=== PATIENT | female | born 1960 | race Caucasian/White ===

== ENCOUNTER → 2020-12-02 14:56 | Outpatient (BNVA) | payer BC, SELFPAY | PROVIDERS: PCP Internal Medicine; Visit Provider Advanced Practice Midwife ==

== ENCOUNTER → 2020-12-23 07:12 | Outpatient (REF) | payer BC, SELFPAY ==
--- NOTE | 2020-12-23 07:30 | CA_ITS ---
Transthoracic Echocardiogram Patient (Last, First, Middle): Alisia Winston, Gender: Female Date of : 1960 Age: 60 Procedure Date: 12/23/2020 Procedure Type: Transthoracic Echocardiogram Location: OP Height: 160.02 cm Weight: 68.95 kg BSA: 1.72 m2 Heart Rate: bpm BP: 98 / 68 mmHg Jewel Hole Finish Opener: JOVITA Referring MD: Arnol Real MD Symptoms: PERSONAL HX. OF SUDDEN CARDIAC ARREST,CARDIOMYOPATHIES Conclusions: - Normal left ventricular size, thickness, and systolic function. - Moderately increased right ventricular cavity size. There is normal right ventricular systolic function. Findings Left Ventricle Normal left ventricular size, thickness, and systolic function. The visually estimated ejection fraction is between 55-60%. There is no evidence of regional wall motion abnormalities. Diastolic function is normal for age. Right Ventricle Moderately increased right ventricular cavity size. There is normal right ventricular systolic function. There is a pacemaker wire seen in the right ventricle. Atria The left atrium is mildly dilated. The right atrium is normal in size. Aortic Valve Normal aortic valve structure and function. There is no aortic valve stenosis. There is no aortic valve regurgitation. Mitral Valve Normal mitral valve structure and function. There is trace mitral valve regurgitation. There is no mitral valve stenosis. Pulmonic Valve Normal pulmonic valve structure and function. Tricuspid Valve Normal tricuspid valve structure and function. There is mild tricuspid valve regurgitation. Normal right atrial pressure. There is no evidence of pulmonary hypertension. Great Vessels All visible segments of the aorta are normal in size. The visualized portions of the pulmonary artery and branches are normal. Venous The inferior vena cava is normal in size and collapses less than 50% with inspiration. Pericardium/Pleural There is no evidence of pericardial effusion. Prior Study Comparison No significant change compared to prior study dated: 11/09/2019. Measurements 2D Linear Measurements RVIDd: 3.36 RVIDd Index: 1.95 IVSd: 0.83 0.6-0.9/0.6-1.0 cm LVIDd: 5.52 3.9-5.3/4.2-5.9 cm LVIDd Index: 3.21 2.4-3.2/2.2-3.1 cm/m2 LVIDs: 4.18 2.0-3.6 cm LVPWd: 0.82 0.7-1.1 cm Ao Root: 3.00 2.1-3.5 cm LA Diam: 4.30 2.7-3.8/3.0-4.0 cm LAIDs Index: 2.50 1.5-2.3 cm/m2 LV Mass: 209.38 67-162/88-224 g LV Mass Index: 121.74 43-95/49-115 g/m2 LVOT Diam: 2.00 3.0+(-)1.3 cm 2D Systolic Function EF 4C: 60.40 >55% EF 2C: 64.00 >55% EF BiP: 62.50 >55% Mitral Valve MV Pk E: 0.55 MV PK A: 0.57 MV Decel Time: 280.00 E/A: 1.00 E'Lateral: 8.81 E'Medial: 6.31 E/E' Med: 8.80 E/E' Lat: 6.30 Aortic Valve AoV Pk Jalen: 0.96 AoV Mn Jalen: 0.75 AoV VTI: 0.22 AoV Pk Grad: 4.00 Aov Mn Grad: 2.00 SASCHA Cont.VTI: 3.22 LVOT LVOT Pk Jalen: 0.99 LVOT Mn Jalen: 0.71 LVOT VTI: 0.23 LVOT Pk Grad: 4.00 LVOT Mn Grad: 2.00 LVOT Diam: 2.00 LVOT Area: 3.14 Diastolic Function MV Pk E: 0.55 MV Pk A: 0.57 E/A: 1.00 E'Medial: 6.31 E/E' Med: 8.80 E' Laterial: 8.81 E/E' Lat: 6.30 Tricuspid Valve TR Pk Jalen: 2.15 TR Pk Grad: 18.00 RA Press: 3.00 RVSP: 21.00 Great Vessels Aorta Ao Root-2D: 3.00 2.0-3.7 cm Ao Asc: 3.10 2.1-3.4 cm Ao Arch: 2.90 Updated in Other Vendor System with Status of Final Baljit Vanessa MD electronically signed on 12/24/2020 10:37:46 PM with status of Final
== END ==
LOC: HO.CARD 07:12
PROVIDERS: Visit Provider Internal Medicine Cardiovascular Disease
DX: I42.8 Other cardiomyopathies (principal); Z86.74 Personal history of sudden cardiac arrest
CPT/HCPCS: 93306

== ENCOUNTER 2020-12-23 07:33 | Outpatient (REF) | payer BC, SELFPAY ==
--- NOTE | ~2020-12-23 | MM_ITS ---
EXAMINATION: MM SCREENING DIGITAL BREAST TOMOSYNTHESIS, BILATERAL CLINICAL INFORMATION: Screening. Asymptomatic. The lifetime risk of breast cancer based on the Tyrer-Cuzick Model is 5.1%. COMPARISON: Mammography: September 21, 2019 and studies dating back to December 21, 2010 TECHNIQUE: Digital breast tomosynthesis is performed in both the craniocaudal and mediolateral oblique views along with computer-aided detection (CAD). Synthesized 2D images are generated from the tomosynthesis. FINDINGS: The breasts are heterogeneously dense, which may obscure small masses (ACR BI-RADS breast composition Category c). There are no significant masses, abnormal calcifications, or other abnormalities. MM/MM tomosynthesis screening BI IMPRESSION: There are no significant changes from prior study. ASSESSMENT: BI-RADS 1: Negative RECOMMENDATION: Routine annual mammography screening. This patient's information was entered into a reminder system with a target due date for their next mammogram.
== END 2020-12-23 07:34 | disposition home or self-care (01) ==
LOC: HO.MAMMO 07:33
PROVIDERS: PCP Internal Medicine; Visit Provider Internal Medicine
DX: Z12.31 Encounter for screening mammogram for malignant neoplasm of breast (principal)
CPT/HCPCS: 77063; 77067

== ENCOUNTER 2021-06-12 10:15 | Outpatient (REF) | payer BC, SELFPAY ==
[2021-06-12 10:18] LABS: MANUAL DIFF FLAG NO
[2021-06-12 10:53] LABS: Basophils Absolute Auto 0.1 X10*3/uL (0.0-0.2); Basophils Percent Auto 1.2 % (0-2); Eosinophils Absolute Auto 0.3 X10*3/uL (0.0-0.4); Eosinophils Percent Auto 3.9 % (0-4); Hematocrit 43.6 % (37.0-47.0); Hemoglobin 14.2 g/dl (12.0-16.0); Imm Gran Abs Auto 0.02 X10*3/uL (0.00-0.03); Imm Gran Pct Auto 0.3 % (0.0-0.4); Lymphocytes Absolute Auto 2.3 X10*3/uL (1.2-4.9); Lymphocytes Percent Auto 32.3 % (20-40); Mean Corpuscular HGB Conc 32.6 g/dl (31.0-35.0); Mean Corpuscular Hemoglobin 30.4 pg (27.0-33.0); Mean Corpuscular Volume 93.4 fL (80.0-98.0); Mean Platelet Volume 10.2 fL (9.4-12.3); Monocytes Absolute Auto 0.9 X10*3/uL (0.1-1.2); Neutrophils Absolute Auto 3.6 x10*3/uL (2.0-8.3); Neutrophils Percent Auto 49.3 % (45-73); Platelet Count 294 X10*3/uL (160-400); Red Blood Count 4.67 X10*6/uL (4.20-5.50); Red Cell Distribution Width 12.3 % (11.0-16.0); White Blood Count 7.3 X10*3/uL (4.8-10.8)
[2021-06-12 10:59] LABS: Appearance Urine CLEAR; Color Urine YELLOW; Glucose Urine UA NEG (NEG); Leukocyte Esterase Urine NEG (NEG); Nitrite Urine NEG (NEG); PH 6.5 (5.0-8.0); Urine Blood 1+ (NEG); Urine Ketones NEG (NEG); Urine Protein NEG (NEG-TRACE)
[2021-06-12 11:11] LABS: Alanine Aminotransferase 9 U/L (0-31); Albumin Level 4.1 g/dL (3.5-5.0); Alkaline Phosphatase 68 U/L (39-117); Anion Gap 10 (12-20); Aspartate Amino Transferase 18 U/L (5-31); Bilirubin Total 0.6 mg/dL (0.0-1.0); Blood Urea Nitrogen 14 mg/dL (9-16); Calcium 9.4 mg/dL (8.4-10.2); Carbon Dioxide 28 mmol/L (22-29); Chloride 106 mmol/L (96-108); Cholesterol 213 mg/dL; Estimated Glomerular Filt Rate > 60; Glucose Fasting 99 mg/dL (60-99); HDL Cholesterol 68 mg/dL; LDL Cholesterol Calculated 132 mg/dl; Potassium 4.1 mmol/L (3.3-5.1); Sodium 140 mmol/L (135-145); Total Protein 6.8 g/dL (6.5-8.0); Triglycerides 69 mg/dL
[2021-06-12 12:18] LABS: Bacteria Urine 3+ /LPF; Squamous Epithelial Cell Urine 3+ /LPF; WBC Urine 0 /HPF (0-4)
== END 2021-06-12 10:16 | disposition home or self-care (01) ==
LOC: HO.LNP 10:15
PROVIDERS: Visit Provider Internal Medicine
DX: Z00.00 Encounter for general adult medical examination without abnormal findings (principal); E87.6 Hypokalemia; K58.9 Irritable bowel syndrome, unspecified; M85.80 Other specified disorders of bone density and structure, unspecified site
CPT/HCPCS: 80053; 80061; 81001; 81003; 85025

== ENCOUNTER → 2021-11-13 13:51 | Outpatient (BNVA) | payer OTHER, SELFPAY | PROVIDERS: PCP Internal Medicine; Referring Provider Internal Medicine; Visit Provider Internal Medicine Cardiovascular Disease | DX: Z45.02 Encounter for adjustment and management of automatic implantable cardiac defibrillator (principal); I42.8 Other cardiomyopathies | CPT/HCPCS: 93005; 93282 ==

== ENCOUNTER 2021-12-26 07:40 | Outpatient (REF) | payer OTHER, SELFPAY ==
--- NOTE | ~2021-12-26 | MM_ITS ---
EXAMINATION: MM SCREENING DIGITAL BREAST TOMOSYNTHESIS, BILATERAL CLINICAL INFORMATION: Screening. Asymptomatic. The lifetime risk of breast cancer based on the Tyrer-Cuzick Model is 5%. COMPARISON: Mammography: 12/23/2020, 09/21/2019, 09/10/2019, 08/28/2018, 08/21/2017, 07/23/2017, 07/20/2016 TECHNIQUE: Digital breast tomosynthesis is performed in both the craniocaudal and mediolateral oblique views along with computer-aided detection (CAD). Synthesized 2D images are generated from the tomosynthesis. Additional left MLO view is provided. FINDINGS: The breasts are heterogeneously dense, which may obscure small masses (ACR BI-RADS breast composition Category c). There is inhomogeneous parenchymal pattern, left breast similar to prior studies. Right MLO has asymmetric density mid upper quadrant 4.5 cm from nipple without correlate on CC view suggesting summation artifact. Neither breast shows abnormal calcifications. There is pacemaker generator overlying and obscuring posterior upper left axilla. MM/MM tomosynthesis screening BI IMPRESSION: Right: -Asymmetric density upper right breast on MLO view without CC correlate suggesting probable summation artifact. Left: -No mammographic evidence of malignancy. ASSESSMENT: BI-RADS 0: Incomplete - Need Additional Imaging Evaluation RECOMMENDATION: 1. Additional views of the right breast (spot MLO, standard ML). 2. Targeted ultrasound if warranted after review of the additional views. 3. Radiology department staff will contact the patient for additional imaging. This patient's information was entered into a reminder system with a target due date for their next mammogram.
== END 2021-12-26 07:41 | disposition home or self-care (01) ==
LOC: HO.MAMMO 07:40
PROVIDERS: PCP Internal Medicine; Visit Provider Internal Medicine
DX: Z12.31 Encounter for screening mammogram for malignant neoplasm of breast (principal)
CPT/HCPCS: 77063; 77067

== ENCOUNTER 2022-02-09 08:55 | Outpatient (REF) | payer OTHER, SELFPAY ==
--- NOTE | ~2022-02-09 | MM_ITS ---
EXAMINATION: MM DIAGNOSTIC DIGITAL BREAST TOMOSYNTHESIS, RIGHT CLINICAL INFORMATION: Recall from screening for asymmetric density upper right breast on MLO view, probable summation artifact. COMPARISON: Mammography: 12/26/2021, 12/23/2020, 09/21/2019, 09/10/2019, 08/28/2018 TECHNIQUE: Digital breast tomosynthesis is performed. 2D images are generated from the tomosynthesis. The following views are obtained: Spot MLO, standard ML. FINDINGS: The breasts are heterogeneously dense, which may obscure small masses (ACR BI-RADS breast composition Category c). The additional views show fibroglandular pattern similar to prior studies. There is no persistent asymmetric density. No mass or architectural abnormality or developing density. Results are discussed with the patient at time of visit. MM/MM tomosynthesis added views R IMPRESSION: Additional views show no significant changes from prior exams. ASSESSMENT: BI-RADS 1: Negative RECOMMENDATION: Routine annual mammography screening. This patient's information was entered into a reminder system with a target due date for their next mammogram.
== END 2022-02-09 08:56 | disposition home or self-care (01) ==
LOC: HO.MAMMO 08:55
PROVIDERS: PCP Internal Medicine; Visit Provider Internal Medicine
DX: R92.2 Inconclusive mammogram (principal)
CPT/HCPCS: 77061; 77065

== ENCOUNTER 2022-06-10 05:57 | Emergency (ER) | payer OTHER, SELFPAY ==
--- NOTE | ~2022-06-10 | XR_ITS ---
EXAMINATION: XR CHEST CLINICAL INFORMATION: Asthma. COMPARISON: 06/15/2011 chest radiograph. TECHNIQUE: 2 views of the chest were obtained. FINDINGS: Support devices: Left-sided pacemaker device appears in good position without abnormality. No significant abnormality is noted involving the heart, lungs, mediastinum, bony thorax or soft tissues. XR/XR chest 2V IMPRESSION: No acute cardiopulmonary process.
[2022-06-10 06:05] VITALS: BP 150/92; PULSE 70; RESP 17; TEMP 36.6; O2SAT 99; BMI 28.3
[2022-06-10 06:20] LABS: MANUAL DIFF FLAG NO
[2022-06-10 06:34] LABS: Basophils Absolute Auto 0.1 X10*3/uL (0.0-0.2); Basophils Percent Auto 0.9 % (0-2); Eosinophils Absolute Auto 0.4 X10*3/uL (0.0-0.4); Eosinophils Percent Auto 4.6 % (0-4); Hematocrit 41.3 % (37.0-47.0); Hemoglobin 14.2 g/dl (12.0-16.0); Imm Gran Abs Auto 0.02 X10*3/uL (0.00-0.03); Imm Gran Pct Auto 0.2 % (0.0-0.4); Lymphocytes Absolute Auto 2.2 X10*3/uL (1.2-4.9); Lymphocytes Percent Auto 27.4 % (20-40); Mean Corpuscular HGB Conc 34.4 g/dl (31.0-35.0); Mean Corpuscular Hemoglobin 30.3 pg (27.0-33.0); Mean Corpuscular Volume 88.1 fL (80.0-98.0); Mean Platelet Volume 10.2 fL (9.4-12.3); Monocytes Absolute Auto 1.1 X10*3/uL (0.1-1.2); Monocytes Percent Auto 13.7 % (2-11); Neutrophils Absolute Auto 4.3 x10*3/uL (2.0-8.3); Neutrophils Percent Auto 53.2 % (45-73); Platelet Count 239 X10*3/uL (160-400); Red Blood Count 4.69 X10*6/uL (4.20-5.50); White Blood Count 8.1 X10*3/uL (4.8-10.8)
[2022-06-10 06:42] LABS: Alanine Aminotransferase 8 U/L (0-31); Albumin Level 4.1 g/dL (3.5-5.0); Alkaline Phosphatase 80 U/L (39-117); Anion Gap 13 (12-20); Aspartate Amino Transferase 17 U/L (5-31); Bilirubin Total 0.3 mg/dL (0.0-1.0); Blood Urea Nitrogen 13 mg/dL (9-16); Calcium 9.3 mg/dL (8.4-10.2); Carbon Dioxide 23 mmol/L (22-29); Chloride 108 mmol/L (96-108); Creatinine Clr Calc Pharmacy 75.1; Estimated Glomerular Filt Rate > 60; Glucose Random 102 mg/dL (60-115); Potassium 4.3 mmol/L (3.3-5.1); Sodium 140 mmol/L (135-145); Total Protein 6.4 g/dL (6.5-8.0)
[2022-06-10 06:59] LABS: Influenza A PCR NEGATIVE (Negative); Influenza B PCR NEGATIVE (Negative); Resp Syncy Virus RNA Qual PCR NEGATIVE (Negative); SARS COV2 PCR INHOUSE NEGATIVE (Negative)
[2022-06-10 07:17] VITALS: BP 136/77; PULSE 72; RESP 14; O2SAT 99
--- NOTE | 2022-06-10 07:25 | PC.NURSE ---
lungs clear. pt still feels like her chest is tight , she is in no acute resp distress.
[2022-06-10] MEDS: Albuterol/Iprat 2.5/0.5MG 3 ML AMPUL.NEB INHALE (08:39)
[2022-06-10 08:41] VITALS: PULSE 70; RESP 16; O2SAT 99
--- NOTE | 2022-06-10 08:41 | ED.ASTHMA ---
HPI - Asthma General Chief Complaint: Asthma Stated Complaint: diff breathing Time Seen by Provider: 06/10/22 07:57 Source: patient Mode of arrival: ambulatory Limitations: no limitations History of Present Illness HPI Narrative: 61-year-old female with past medical history asthma, right ventricular dysplasia with ICD placement presents to the emergency department today with complaints shortness of breath which she believes is an asthma exacerbation that began last night before bed. She took her albuterol inhaler with limited improvement in symptoms. She states her last asthma exacerbation was prior to COVID-19 She denies any recent illness, sick contacts, known environmental exposures to asthma triggers, smoke exposure, fever, chills, headache, change in vision, or chest pain. MD complaint: asthma attack , shortness of breath, wheezing and other Onset (ago): hour(s) (12) Severity: moderate Context: none known Associated symptoms: none Treatments Prior to Arrival: inhaled bronchodilator Related Data Current Asthma Therapy: inhaled bronchodilator Previous Rx's Medication Instructions Recorded estradiol 0.01% (0.1 mg/gram) 1 g vaginal 2XW #42.5 grams 12/12/21 vaginal cream (Estrace) metoprolol succinate 50 mg 50 mg PO DAILY #90 tabs 04/24/22 tablet,extended release 24 hr Allergies Allergy/AdvReac Type Severity Reaction Status Date / Time No Known Allergies Allergy Verified 06/10/22 06:05 Review of Systems Review of Systems: In addition to documented HPI above, the additional ROS was obtained: Constitutional: No Weight loss, No Fever, No Chills ENT/Mouth: No Ear Pain, No Nasal Congestion, No Sinus Pain, No Hoarseness, No sore throat, No Rhinorrhea, No Swallowing Difficulty Cardiovascular: No Chest Pain, no edema Respiratory: No Cough, No Sputum, No Wheezing Gastrointestinal: No Nausea, No Vomiting, No Diarrhea, No Constipation, No Abdominal pain Genitourinary: No Dysuria, No Urinary Frequency, No Hematuria, No Urinary Incontinence/retention, No Urgency, No Flank Pain Musculoskeletal: No joint pain, No Myalgias, No Joint Swelling Skin: No Skin Lesions, No rash Neuro: No Weakness, No Numbness, No Paresthesias Yes all other systems are reviewed and are negative ENT: Reports Normal hearing present Neurologic: Reports Normal hearing present [facility] Past Medical History Attestation statement: The following information was validated with the patient. Source: old records reviewed and obtained from family Medical History Arrhythmogenic right ventricular dysplasia Asthma ICD (implantable cardioverter-defibrillator) in place Osteoporosis Renal calculi Surgical History History of appendectomy Social History Social History Alcohol intake: never Patient Tobacco Use Status: Never used Tobacco Smoked in Last 30 Days: No Use of substances other than those prescribed or required for medical reasons: No Advance Directives: No Patient : No Current occupational status: employed Current occupation: [employer], [place] Sexual orientation: Straight/Heterosexual Gender identity: Female Physical Exam Vital Signs: Vital Signs: Last Vital Signs Temp 98.2 F 06/10/22 09:48 Pulse 86 06/10/22 09:48 Resp 15 06/10/22 09:48 BP 138/83 06/10/22 09:48 Pulse Ox 96 06/10/22 09:48 O2 Del Method 06/10/22 09:48 BMI result Body Mass Index 28.3 Const: General: cooperative, alert and awake Nutritional Appearance: well nourished Orientation/consciousness: patient oriented x3 Limitations: no limitations HEENT: Head: Yes normal to inspection, Yes normocephalic and Yes atraumatic Ears: hearing grossly normal bilaterally and external ears normal General nose exam: Normal external nose present and Normal nares present Face and sinus: Yes normal facial exam and Yes face symmetric Mouth: Normal oral and palatal mucosa present Eyes: General: appearance normal, both eyes and all related structures Visual Maldonado: normal visual maldonado by confrontation Alignment and Position: alignment normal Periorbital: periorbital findings normal Eyelids: Yes eyelids normal Conjunctivae: conjunctivae normal Sclerae: sclerae normal Corneas: corneas normal Pupils: Equal, round and reactive pupils present EOM: EOMs intact bilaterally Neck: Neck: Yes normal visual inspection, Yes full ROM and Yes no lymphadenopathy Chest: Chest palpation & inspection: normal inspection of the chest Resp: Effort & Inspection: normal respiratory effort, audible wheezes, no cough and not labored Auscultation: no crackles, no rhonchi and wheezes expiratory wheezes and throughout Cardio: Rate: regular rate Rhythm: regular rhythm Heart sounds: S1 normal heart sound present and S2 normal heart sound present Skin: General skin exam: no rashes or lesions noted Neuro: General: patient oriented x3, gait normal and moves all extremities Cranial nerves: Yes Equal, round and reactive pupils present and Yes Normal hearing present Cognition (Neuro): normal cognition Motor exam (neuro): 5/5 motor strength present throughout Extrem: General: Yes normal to inspection, Yes full ROM and Yes capillary refill normal Course Course Course Narrative: 0800: Patient requesting DuoNeb treatment for asthma exacerbation. She states she typically presents to urgent care when she has an asthma exacerbation and receives a DuoNeb treatment with follow-up prednisone for 5 days. 0850: Patient complaining of anxiety, feeling as if her heart is racing, and feeling panicky after DuoNeb treatment. Initial heart rate 120s appears regular with uniform, regular SpO2 pleth. EKG ordered. Patient reassured with reduction in heart rate noted to 80s while talking to patient. Medications Administered Discontinued Medications Generic Name Dose Route Start Last Admin Trade Name Palak PRN Reason Stop Dose Admin Albuterol/Ipratropium 3 ml 06/10/22 08:01 06/10/22 08:39 Albuterol/Iprat 2.5/0.5mg 3 Ml Ampul.Neb INHALE 06/10/22 08:02 3 ml ONCE ONE Administration Ketorolac Tromethamine 15 mg 06/10/22 10:28 06/10/22 10:38 Ketorolac Tromethamine 15 Mg/Ml Vial IM 06/10/22 10:29 15 mg ONCE ONE Administration Prednisone 60 mg 06/10/22 08:32 06/10/22 08:58 Prednisone 20 Mg Tablet PO 06/10/22 08:33 60 mg ONCE ONE Administration Medical Decision Making Medical Decision Making [facility] Narrative: 61-year-old female with past medical history asthma, right ventricular dysplasia with ICD placement presents to the emergency department today with complaints shortness of breath which she believes is an asthma exacerbation that began last night before bed. DuoNeb ordered as patient states she typically presents to urgent care when she has an asthma exacerbation (last asthma exacerbation prior to COVID-19 outbreak) and receives a DuoNeb treatment with follow-up prednisone for 5 days. Duoneb and prednisone provided due to difficulty breathing and noted expiratory wheeze for presumed asthma exacerbation. After Duoneb, pt began complaining of feeling anxious, as if her heart is racing, and panicky after treatment. Initial heart rate 120s appears regular with uniform, regular SpO2 pleth. Patient reassured of safety with reduction in heart rate noted to 80s while talking to patient. Chest x-ray showed no acute cardio pulmonary pathology. Serology was negative for flu a/B, RSV, and COVID. EKG was unremarkable for acute cardiac process, normal sinus rhythm with nonspecific ST and T-wave abnormality. When compared to EKG of 06/15/2011 premature ventricular complexes are no longer present, T-wave inversion now evident in anterior leads. Roughly 15-20 minutes after feeling anxious with racing heartbeat, patient is noted to be sitting calmly on stretcher and denies complaints of breathing difficulty or racing heart and states she is feeling better. Plan to discharge patient home with 5 day course of prednisone for treatment of acute asthma exacerbation. Low suspicion for cardiopulmonary infection or disease based on diagnostics and physical exam. HPI, physical exam, diagnostics, and plan discussed with patient and family with no unanswered questions at this time. Educated to return to the emergency department with increased short of breath, chest pain, headache, vision changes, or any other concerning symptom. Recommended follow-up with her primary care provider and follow-up with a veterinary practice manager for further treatment and management. Discharge Plan Discharge Clinical Impression: Asthma with acute exacerbation Patient Disposition: Home, Self-Care Instructions: Asthma (ED), Wheezing (ED), How Your Lungs Work (ED) Additional Instructions: You were given a DuoNeb treatment on arrival to the emergency department today for complaints of shortness of breathing and expiratory wheezing due to a presumed asthma exacerbation. He received 60 mg of prednisone to help with inflammation which will continue for 5 days. Please return to the emergency department with increased short of breath, chest pain, headache, vision changes, or any other concerning symptom. Recommended follow-up with your primary care provider in follow-up with a veterinary practice manager for further management. Your chest x-ray showed no acute cardio pulmonary pathology. Your EKG was unremarkable for acute cardiac process, normal sinus rhythm with nonspecific ST and T-wave abnormality. When compared to EKG of 06/15/2011 premature ventricular complexes are no longer present, T-wave inversion now evident in anterior leads. Prescriptions: No Action metoprolol succinate 50 mg tablet extended release 24 hr 50 mg PO DAILY Qty: 90 3RF estradiol [Estrace] 0.01 % (0.1 mg/gram) cream 1 g vaginal 2XW Qty: 42.5 4RF Referrals: Eric Sandoval MD [Primary Care Provider] - Samuel Tang MD [Physician] - Interventions: ED Discharge Assessment Last Done: 06/10/22 10:55 Discharge Date/Time: 06/10/22 10:57 Print Language: [place]
--- NOTE | 2022-06-10 08:51 | ECG_ITS ---
Test Reason : SOB Blood Pressure : / mmHG Vent. Rate : 087 BPM Atrial Rate : 087 BPM P-R Int : 142 ms QRS Dur : 088 ms QT Int : 396 ms P-R-T Axes : 061 073 053 degrees QTc Int : 476 ms Normal sinus rhythm Nonspecific ST and T wave abnormality Abnormal ECG When compared with ECG of 15-JUN-2011 16:42, Premature ventricular complexes are no longer Present T wave inversion now evident in Anterior leads Referred By: Teresa Montelongo Electronically Signed By:GABE GRACIA MD
[2022-06-10] MEDS: predniSONE 20 MG TABLET 60 MG PO (08:58)
[2022-06-10 09:48] VITALS: BP 138/83; PULSE 86; RESP 15; TEMP 36.8; O2SAT 96
[2022-06-10] MEDS: Ketorolac Tromethamine 15 MG/ML VIAL IM (10:38)
== END 2022-06-10 10:57 | disposition home or self-care (01) ==
PROVIDERS: Emergency Provider Emergency Medicine Emergency Medical Services; PCP Internal Medicine
DX: J45.901 Unspecified asthma with (acute) exacerbation (principal); R06.02 Shortness of breath; R51.9 Headache, unspecified; Z20.822 Contact with and (suspected) exposure to COVID-19; Z79.899 Other long term (current) drug therapy
CPT/HCPCS: 0241U; 36415; 71046; 80053; 85025; 93005; 94640; 96372; 99284; 99285; J1885

== ENCOUNTER 2022-06-14 11:19 | Outpatient (REF) | payer OTHER, SELFPAY ==
[2022-06-14 11:22] LABS: MANUAL DIFF FLAG NO
[2022-06-14 11:55] LABS: Basophils Absolute Auto 0.1 X10*3/uL (0.0-0.2); Basophils Percent Auto 1.2 % (0-2); Eosinophils Absolute Auto 0.4 X10*3/uL (0.0-0.4); Eosinophils Percent Auto 5.5 % (0-4); Hemoglobin 14.3 g/dl (12.0-16.0); Imm Gran Abs Auto 0.02 X10*3/uL (0.00-0.03); Imm Gran Pct Auto 0.3 % (0.0-0.4); Lymphocytes Absolute Auto 2.8 X10*3/uL (1.2-4.9); Lymphocytes Percent Auto 41.3 % (20-40); Mean Corpuscular HGB Conc 33.3 g/dl (31.0-35.0); Mean Corpuscular Hemoglobin 30.6 pg (27.0-33.0); Mean Corpuscular Volume 92.1 fL (80.0-98.0); Mean Platelet Volume 10.4 fL (9.4-12.3); Monocytes Absolute Auto 0.7 X10*3/uL (0.1-1.2); Monocytes Percent Auto 11.1 % (2-11); Neutrophils Absolute Auto 2.7 x10*3/uL (2.0-8.3); Neutrophils Percent Auto 40.6 % (45-73); Platelet Count 276 X10*3/uL (160-400); Red Blood Count 4.67 X10*6/uL (4.20-5.50); White Blood Count 6.7 X10*3/uL (4.8-10.8)
[2022-06-14 11:57] LABS: Appearance Urine Cloudy; Color Urine Yellow; Glucose Urine UA Negative (Negative); Leukocyte Esterase Urine Negative (Negative); Nitrite Urine Negative (Negative); Specific Gravity - Urine 1.015 (1.005-1.025); Urine Blood Negative (Negative); Urine Ketones Negative (Negative); Urine Protein Negative (Neg-Trace)
[2022-06-14 12:11] LABS: Bacteria Urine 2+ (None Seen); Hyaline Casts Urine 0-2 /LPF (0-2); Squamous Epithelial Cell Urine >20 /HPF (0-2); WBC Urine 0-5 /HPF (0-5)
[2022-06-14 13:49] LABS: Alanine Aminotransferase 10 U/L (0-31); Albumin Level 4.1 g/dL (3.5-5.0); Alkaline Phosphatase 69 U/L (39-117); Anion Gap 13 (12-20); Aspartate Amino Transferase 18 U/L (5-31); Bilirubin Total 0.6 mg/dL (0.0-1.0); Blood Urea Nitrogen 14 mg/dL (9-16); Calcium 9.3 mg/dL (8.4-10.2); Carbon Dioxide 26 mmol/L (22-29); Chloride 106 mmol/L (96-108); Cholesterol 179 mg/dL; Estimated Glomerular Filt Rate > 60; Glucose Fasting 92 mg/dL (60-99); HDL Cholesterol 53 mg/dL; LDL Cholesterol Calculated 107 mg/dl; Potassium 4.5 mmol/L (3.3-5.1); Sodium 140 mmol/L (135-145); Total Protein 6.5 g/dL (6.5-8.0); Triglycerides 96 mg/dL
== END 2022-06-14 11:20 | disposition home or self-care (01) ==
LOC: HO.LNP 11:19
PROVIDERS: Visit Provider Internal Medicine
DX: Z00.00 Encounter for general adult medical examination without abnormal findings (principal)
CPT/HCPCS: 80053; 80061; 81001; 85025

== ENCOUNTER 2022-07-23 11:12 | Outpatient (REF) | payer OTHER, SELFPAY ==
[2022-07-23 11:20] LABS: Basophils Percent Auto 0.8 % (0-2); Eosinophils Absolute Auto 0.2 X10*3/uL (0.0-0.4); Eosinophils Percent Auto 3.3 % (0-4); Hematocrit 42.7 % (37.0-47.0); Hemoglobin 14.3 g/dl (12.0-16.0); Imm Gran Abs Auto 0.01 X10*3/uL (0.00-0.03); Imm Gran Pct Auto 0.2 % (0.0-0.4); Lymphocytes Absolute Auto 1.7 X10*3/uL (1.2-4.9); Lymphocytes Percent Auto 35.1 % (20-40); MANUAL DIFF FLAG SCAN; Mean Corpuscular HGB Conc 33.5 g/dl (31.0-35.0); Mean Corpuscular Hemoglobin 29.9 pg (27.0-33.0); Mean Corpuscular Volume 89.3 fL (80.0-98.0); Mean Platelet Volume 10.6 fL (9.4-12.3); Monocytes Percent Auto 20.3 % (2-11); Neutrophils Absolute Auto 1.9 x10*3/uL (2.0-8.3); Neutrophils Percent Auto 40.3 % (45-73); Platelet Count 237 X10*3/uL (160-400); Red Blood Count 4.78 X10*6/uL (4.20-5.50); Red Cell Distribution Width 12.2 % (11.0-16.0); SCAN SMEAR FLAG 1; White Blood Count 4.8 X10*3/uL (4.8-10.8)
[2022-07-23 11:57] LABS: SLIDE REVIEW VERIFIED
== END 2022-07-23 11:13 | disposition home or self-care (01) ==
LOC: HO.LNP 11:12
PROVIDERS: Visit Provider Internal Medicine
DX: D72.820 Lymphocytosis (symptomatic) (principal)
CPT/HCPCS: 85025

== ENCOUNTER 2022-07-30 10:50 | Outpatient (REF) | payer OTHER, SELFPAY ==
[2022-07-30 10:51] LABS: MANUAL DIFF FLAG NO
[2022-07-30 11:10] LABS: Basophils Absolute Auto 0.1 X10*3/uL (0.0-0.2); Basophils Percent Auto 1.2 % (0-2); Eosinophils Absolute Auto 0.2 X10*3/uL (0.0-0.4); Eosinophils Percent Auto 2.8 % (0-4); Hematocrit 42.9 % (37.0-47.0); Hemoglobin 14.2 g/dl (12.0-16.0); Imm Gran Abs Auto 0.01 X10*3/uL (0.00-0.03); Imm Gran Pct Auto 0.2 % (0.0-0.4); Lymphocytes Absolute Auto 2.1 X10*3/uL (1.2-4.9); Lymphocytes Percent Auto 36.8 % (20-40); Mean Corpuscular HGB Conc 33.1 g/dl (31.0-35.0); Mean Corpuscular Volume 90.7 fL (80.0-98.0); Mean Platelet Volume 10.5 fL (9.4-12.3); Monocytes Absolute Auto 0.8 X10*3/uL (0.1-1.2); Monocytes Percent Auto 13.9 % (2-11); Neutrophils Absolute Auto 2.6 x10*3/uL (2.0-8.3); Neutrophils Percent Auto 45.1 % (45-73); Platelet Count 288 X10*3/uL (160-400); Red Blood Count 4.73 X10*6/uL (4.20-5.50); Red Cell Distribution Width 12.2 % (11.0-16.0); White Blood Count 5.8 X10*3/uL (4.8-10.8)
== END 2022-07-30 10:51 | disposition home or self-care (01) ==
LOC: HO.LNP 10:50
PROVIDERS: Visit Provider Internal Medicine
DX: D72.821 Monocytosis (symptomatic) (principal)
CPT/HCPCS: 85025

== ENCOUNTER → 2022-11-01 13:28 | Outpatient (BNVA) | payer OTHER, SELFPAY | PROVIDERS: PCP Internal Medicine; Referring Provider Internal Medicine; Visit Provider Internal Medicine Cardiovascular Disease | DX: I42.8 Other cardiomyopathies (principal) | CPT/HCPCS: 93005 ==

== ENCOUNTER → 2022-11-22 08:49 | Outpatient (REF) | payer OTHER, SELFPAY ==
--- NOTE | 2022-11-22 08:53 | CA_ITS ---
Transthoracic Echocardiogram Patient (Last, First, Middle): Alisia Winston, Gender: Female Date of : 1960 Age: 62 Procedure Date: 11/22/2022 Procedure Type: Transthoracic Echocardiogram Location: OP Height: 160.02 cm Weight: 68.04 kg BSA: 1.71 m2 Heart Rate: bpm BP: 140 / 90 mmHg Ophthalmic Aide: TO Referring MD: Arnol Real MD Symptoms: I42.8 - Other cardiomyopathies Study Quality: Fair/Contrast Conclusions: - The left ventricular systolic function is normal. The calculated ejection fraction is 58% by biplane method. - Mildly increased right ventricular cavity size. There is mildly decreased right ventricular systolic function. - No obvious valvular pathology seen on this study. Findings Procedure Information Contrast agent, definity, is being given per protocol without apparent complications. Left Ventricle Normal left ventricular cavity size. There is mildly increased left ventricular wall thickness. The left ventricular systolic function is normal. The calculated ejection fraction is 58% by biplane method. There is no evidence of regional wall motion abnormalities. Diastolic function is normal for age. Right Ventricle Mildly increased right ventricular cavity size. There is mildly decreased right ventricular systolic function. There is an ICD wire seen in the right ventricle. Atria The left atrium is mildly dilated. The right atrium is normal in size. Aortic Valve There is a normal trileaflet aortic valve. There is no aortic valve stenosis. There is no aortic valve regurgitation. Mitral Valve The mitral valve appears normal. There is trace mitral valve regurgitation. There is no mitral valve stenosis. Pulmonic Valve The pulmonic valve is likely normal. Tricuspid Valve There is mild tricuspid valve regurgitation. There is no evidence of pulmonary hypertension. Great Vessels The asc aorta is normal in size. Venous The inferior vena cava is normal in size and collapses greater than 50% with inspiration. Pericardium/Pleural There is no evidence of pericardial effusion. Prior Study Comparison No significant change compared to prior study dated: 12/23/2020. Recommendations, Care & Conclusions No obvious valvular pathology seen on this study. Measurements 2D Linear Measurements IVSd: 1.02 0.6-0.9/0.6-1.0 cm LVIDd: 4.77 3.9-5.3/4.2-5.9 cm LVIDd Index: 2.79 2.4-3.2/2.2-3.1 cm/m2 LVIDs: 3.27 2.0-3.6 cm LVPWd: 1.00 0.7-1.1 cm LA Diam: 4.10 2.7-3.8/3.0-4.0 cm LAIDs Index: 2.40 1.5-2.3 cm/m2 LV Mass: 212.70 67-162/88-224 g LV Mass Index: 124.38 43-95/49-115 g/m2 LVOT Diam: 2.10 3.0+(-)1.3 cm 2D Systolic Function EF 4C: 57.20 >55% EF 2C: 58.10 >55% EF BiP: 57.90 >55% Mitral Valve MV Pk E: 0.53 MV PK A: 0.56 MV Decel Time: 257.00 E/A: 0.90 E'Lateral: 9.03 E'Medial: 4.46 E/E' Med: 11.90 E/E' Lat: 5.90 PHT: 73.00 MVA PHT: 3.01 Decel Story: 2.15 Aortic Valve AoV Pk Jalen: 1.22 AoV Mn Jalen: 0.79 AoV VTI: 0.28 AoV Pk Grad: 6.00 Aov Mn Grad: 3.00 SASCHA Cont.VTI: 2.52 LVOT LVOT Pk Jalen: 0.92 LVOT Mn Jalen: 0.63 LVOT VTI: 0.21 LVOT Pk Grad: 3.00 LVOT Mn Grad: 2.00 LVOT Diam: 2.10 LVOT Area: 3.46 Diastolic Function MV Pk E: 0.53 MV Pk A: 0.56 E/A: 0.90 E'Medial: 4.46 E/E' Med: 11.90 E' Laterial: 9.03 E/E' Lat: 5.90 Right Ventricle TAPSE (mm): 17.40 TVS' Jalen: 10.40 Tricuspid Valve TR Pk Jalen: 2.54 TR Pk Grad: 26.00 RA Press: 3.00 RVSP: 29.00 Great Vessels Aorta Sinus of Valsalva: 3.50 2.0-3.5 cm Ao Asc: 3.20 2.1-3.4 cm Updated in Other Vendor System with Status of Final Rodney Peres MD electronically signed on 11/24/2022 12:54:45 PM with status of Final
== END ==
LOC: HO.CARD 08:49
PROVIDERS: PCP Internal Medicine; Visit Provider Internal Medicine Cardiovascular Disease
DX: I42.8 Other cardiomyopathies (principal)
CPT/HCPCS: 93306; Q9957

== ENCOUNTER 2022-12-14 12:55 | Outpatient (REF) | payer OTHER, SELFPAY ==
[2022-12-19 00:29] LABS: HPV mRNA E6/E7 rflx Not Detected (Not Detected)
== END 2022-12-14 12:56 | disposition home or self-care (01) ==
LOC: HO.LNP 12:55
PROVIDERS: PCP Internal Medicine; Visit Provider Advanced Practice Midwife
DX: Z01.419 Encounter for gynecological examination (general) (routine) without abnormal findings (principal); Z11.51 Encounter for screening for human papillomavirus (HPV)
CPT/HCPCS: 87624; 88142

== ENCOUNTER 2023-01-18 13:15 | Outpatient (REF) | payer OTHER, SELFPAY ==
--- NOTE | ~2023-01-18 | MM_ITS ---
EXAMINATION: MM SCREENING DIGITAL BREAST TOMOSYNTHESIS, BILATERAL CLINICAL INFORMATION: Screening. Asymptomatic. The lifetime risk of breast cancer based on the Tyrer-Cuzick Model is 4.8%. COMPARISON: Mammography: This study is compared with prior exams dating back to 2019. TECHNIQUE: Digital breast tomosynthesis is performed in both the craniocaudal and mediolateral oblique views along with computer-aided detection (CAD). Synthesized 2D images are generated from the tomosynthesis. FINDINGS: The breasts are heterogeneously dense, which may obscure small masses (ACR BI-RADS breast composition Category c). A pacemaker overlies the superior aspect of the left breast. There are no significant masses, abnormal calcifications, or other abnormalities. MM/MM tomosynthesis screening BI IMPRESSION: No mammographic evidence of malignancy. ASSESSMENT: BI-RADS BI-RADS 1 - Negative RECOMMENDATION: Routine annual mammography screening. 1 year F/U This examination should not preclude the clinical evaluation of a suspicious palpable abnormality. This patient's information was entered into a reminder system with a target due date for their next mammogram.
== END 2023-01-18 13:16 | disposition home or self-care (01) ==
LOC: HO.MAMMO 13:15
PROVIDERS: PCP Internal Medicine; Visit Provider Internal Medicine
DX: Z12.31 Encounter for screening mammogram for malignant neoplasm of breast (principal)
CPT/HCPCS: 77063; 77067

== ENCOUNTER → 2023-01-18 13:30 | Outpatient (BNV) | payer OTHER, SELFPAY | PROVIDERS: PCP Internal Medicine; Visit Provider Radiology Diagnostic Radiology | DX: Z12.31 Encounter for screening mammogram for malignant neoplasm of breast (principal) | CPT/HCPCS: 77063; 77067 ==

== ENCOUNTER → 2023-01-23 23:59 | Outpatient (BNV) | payer OTHER, SELFPAY ==
--- NOTE | 2023-01-30 14:36 | MHC.OFFVIS ---
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 ICD function is adequate. [id number] Cardiac Interrogation, implant defibrillator w/interim Procedure code (CPT) selection complete Coding Level of Care Code Procedure Only Diagnoses CPT Codes Cardiac Device Check - Cardiac Device 13: 24449-Hfllrb Cardiac Interrogation, implant defibrillator w/interim ([id number])
== END ==
PROVIDERS: PCP Internal Medicine; Visit Provider Internal Medicine Cardiovascular Disease
DX: I42.8 Other cardiomyopathies (principal); Z95.810 Presence of automatic (implantable) cardiac defibrillator
CPT/HCPCS: 93295

== ENCOUNTER → 2023-04-29 23:59 | Outpatient (BNV) | payer OTHER, SELFPAY ==
--- NOTE | 2023-04-30 11:16 | MHC.OFFVIS ---
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 ICD function is adequate. [place] 422[address]-Vbvanr Cardiac Interrogation, implant defibrillator w/interim Procedure code (CPT) selection complete Coding Level of Care Code Procedure Only CPT Codes Cardiac Device Check - Cardiac Device 13: 87589-Fzvdoa Cardiac Interrogation, implant defibrillator w/interim ([id number])
== END ==
PROVIDERS: PCP Internal Medicine; Visit Provider Internal Medicine Cardiovascular Disease
DX: I42.8 Other cardiomyopathies (principal); Z95.810 Presence of automatic (implantable) cardiac defibrillator
CPT/HCPCS: 93295

== ENCOUNTER 2023-06-20 11:32 | Outpatient (REF) | payer OTHER, SELFPAY ==
[2023-06-20 11:36] LABS: MANUAL DIFF FLAG NO
[2023-06-20 12:10] LABS: Basophils Absolute Auto 0.1 X10*3/uL (0.0-0.2); Eosinophils Absolute Auto 0.3 X10*3/uL (0.0-0.4); Eosinophils Percent Auto 3.9 % (0-4); Hematocrit 42.8 % (37.0-47.0); Hemoglobin 14.3 g/dl (12.0-16.0); Imm Gran Abs Auto 0.06 X10*3/uL (0.00-0.03); Imm Gran Pct Auto 0.9 % (0.0-0.4); Lymphocytes Absolute Auto 2.6 X10*3/uL (1.2-4.9); Lymphocytes Percent Auto 36.7 % (20-40); Mean Corpuscular HGB Conc 33.4 g/dl (31.0-35.0); Mean Corpuscular Hemoglobin 30.8 pg (27.0-33.0); Mean Corpuscular Volume 92.2 fL (80.0-98.0); Monocytes Absolute Auto 0.9 X10*3/uL (0.1-1.2); Monocytes Percent Auto 12.4 % (2-11); Neutrophils Absolute Auto 3.1 x10*3/uL (2.0-8.3); Neutrophils Percent Auto 45.1 % (45-73); Platelet Count 316 X10*3/uL (160-400); Red Blood Count 4.64 X10*6/uL (4.20-5.50); Red Cell Distribution Width 11.9 % (11.0-16.0)
[2023-06-20 12:39] LABS: Alanine Aminotransferase 14 U/L (0-31); Albumin Level 4.2 g/dL (3.5-5.0); Alkaline Phosphatase 67 U/L (39-117); Anion Gap 13 (12-20); Aspartate Amino Transferase 22 U/L (5-31); Bilirubin Total 0.5 mg/dL (0.0-1.0); Blood Urea Nitrogen 13 mg/dL (9-16); Calcium 9.6 mg/dL (8.4-10.2); Carbon Dioxide 28 mmol/L (22-29); Chloride 105 mmol/L (96-108); Cholesterol 175 mg/dL (<200); Estimated Glomerular Filt Rate > 60; Glucose Random 94 mg/dL (60-115); HDL Cholesterol 51 mg/dL (>40); LDL Cholesterol Calculated 111 mg/dL (<100); Potassium 4.2 mmol/L (3.3-5.1); Sodium 142 mmol/L (135-145); Total Protein 7.2 g/dL (6.5-8.0); Triglycerides 69 mg/dL (<150)
[2023-06-20 12:50] LABS: Appearance Urine Clear; Color Urine Yellow; Glucose Urine UA Negative (Negative); Leukocyte Esterase Urine Trace (Negative); Nitrite Urine Negative (Negative); PH 8.5 (5.0-9.0); Specific Gravity - Urine 1.015 (1.005-1.025); UMIC TRIGGER UACC YES; Urine Blood Trace (Negative); Urine Ketones Negative (Negative); Urine Protein Negative (Neg-Trace)
[2023-06-20 12:57] LABS: Bacteria Urine 1+ (None Seen); Hyaline Casts Urine 0-2 /LPF (0-2); WBC Urine 0-5 /HPF (0-5)
== END 2023-06-20 11:33 | disposition home or self-care (01) ==
LOC: HO.LNP 11:32
PROVIDERS: Visit Provider Internal Medicine
DX: Z00.00 Encounter for general adult medical examination without abnormal findings (principal); D72.821 Monocytosis (symptomatic)
CPT/HCPCS: 80053; 80061; 81001; 85025

== ENCOUNTER → 2023-07-29 23:59 | Outpatient (BNV) | payer OTHER, SELFPAY ==
--- NOTE | 2023-07-29 16:41 | A.OFFVIS_ITS ---
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 [place] 76[address]-Wbwuqk Cardiac Interrogation, implant defibrillator w/interim Procedure code (CPT) selection complete Assessment & Plan Assessment & Plan (1) ICD (implantable cardioverter-defibrillator) in place: Code(s): Z95.810 - Presence of automatic (implantable) cardiac defibrillator Plan: See above Coding Level of Care Code Procedure Only Diagnoses ICD (implantable cardioverter-defibrillator) in place Z95.810 CPT Codes Cardiac Device Check - Cardiac Device 13: 18453-Frgstg Cardiac Interrogation, implant defibrillator w/interim ([id number])
== END ==
PROVIDERS: PCP Internal Medicine; Visit Provider Internal Medicine Cardiovascular Disease
DX: I42.8 Other cardiomyopathies (principal); Z95.810 Presence of automatic (implantable) cardiac defibrillator
CPT/HCPCS: 93295

== ENCOUNTER → 2023-10-28 23:59 | Outpatient (BNV) | payer OTHER, SELFPAY ==
--- NOTE | 2023-10-30 13:11 | MHC.OFFVIS ---
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 ICD function is adequate. Battery life is about 1 year. [place] 16855-Mydeed Cardiac Interrogation, implant defibrillator w/interim Procedure code (CPT) selection complete Assessment & Plan Assessment & Plan (1) ICD (implantable cardioverter-defibrillator) in place: Code(s): Z95.810 - Presence of automatic (implantable) cardiac defibrillator Category: Medical Plan: See above Coding Level of Care Code Procedure Only Diagnoses ICD (implantable cardioverter-defibrillator) in place Z95.810 CPT Codes Cardiac Device Check - Cardiac Device 13: 01852-Fgwkoi Cardiac Interrogation, implant defibrillator w/interim ([id number])
== END ==
PROVIDERS: PCP Internal Medicine; Visit Provider Internal Medicine Cardiovascular Disease
DX: I47.20 Ventricular tachycardia, unspecified (principal); Z95.810 Presence of automatic (implantable) cardiac defibrillator
CPT/HCPCS: 93295

== ENCOUNTER 2023-11-18 14:45 | Outpatient (AMB) | payer OTHER, SELFPAY ==
[2023-11-18 15:13] VITALS: BP 120/74; PULSE 69; BMI 26.6
--- NOTE | 2023-11-18 15:13 | A.OFFVIS_ITS ---
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 She has been doing very well from cardiac perspective. She has been walking regularly but not running which is great. She denies any symptoms of palpitations, lightheadedness, syncope, ICD discharge. Denies any heart failure symptoms. Takes all her medications. [facility] Medical History Renal calculi ICD (implantable cardioverter-defibrillator) in place Arrhythmogenic right ventricular dysplasia Asthma Osteoporosis Surgical History History of appendectomy Family History Father Diabetes HTN (hypertension) Social History Alcohol intake: never Patient Tobacco Use Status: Never used Tobacco Current occupational status: employed Current occupation: [employer] Sexual orientation: Straight/Heterosexual Gender identity: Female Review of Systems Const Denies chills, Denies fatigue, Denies fever(s), Denies frequent falls, Denies weakness, Denies weight gain and Denies weight loss ENT Denies dizziness Card Denies chest pain, Denies leg edema, Denies lightheadedness, Denies palpitations, Denies dyspnea, Denies dyspnea on exertion, Denies orthopnea and Denies other (loss of consciousness) Resp Denies cough, Denies dyspnea and Denies dyspnea on exertion GI Denies hematochezia and Denies change in stool character Musc Denies abnormal gait, Denies muscle weakness, Denies numbness, Denies radiating pain into limb and Denies tingling Neuro Denies abnormal gait, Denies dizziness, Denies frequent falls, Denies numbness, Denies tingling and Denies weakness Endo Denies fatigue and Denies palpitations Physical Exam Vital Signs: Last Vital Signs Pulse 69 11/18/23 15:13 BP 120/74 11/18/23 15:13 BMI result Body Mass Index 26.6 Const General: cooperative, comfortable, no acute distress, alert, awake, Physically active and well groomed Nutritional Appearance: overweight Orientation/consciousness: patient oriented x3 Neck Neck: Yes trachea midline, Yes supple and Yes no JVD Resp Effort & Inspection: normal respiratory effort Auscultation: clear to auscultation bilaterally Cardio Jugular venous distension: no JVD Palpation: normal PMI Rate: regular rate Rhythm: regular rhythm Heart sounds: S1 normal heart sound present, S2 normal heart sound present, no click, no gallops, no murmurs and no rubs GI Auscultation: normal bowel sounds Skin General skin exam: no rashes or lesions noted Neuro General: patient oriented x3 and no focal motor deficits Extrem General: Yes no clubbing, cyanosis or edema Office Procedures Cardiac Device Check Cardiac Device Check Details: Single-chamber [employer] ICD in place. Multiple episodes of nonsustained VT noted although did not meet any criteria for treatment. RV pacing thresholds excellent. RV sensing is excellent. Pacing and shock lead impedance is stable. Battery life is about 1 year. 43636-ZX Cardiac Device Check, single lead implantable defibrillator Procedure code (CPT) selection complete EKG Details: EKG shows normal sinus rhythm with T-wave inversion in the precordial lead as well as lead 3 and AVF with no clear epsilon wave 01003-Npfkiaoquhcgfoqfz, Complete Assessment & Plan Assessment & Plan (1) Arrhythmogenic right ventricular dysplasia: Code(s): I42.8 - Other cardiomyopathies Category: Medical Plan: Patient with most likely diagnosis of ARVC now she is seeing morphine inotropic abnormalities with EKG abnormality as well as echo findings of RV enlargement. No signs or symptoms of heart failure. Advise management with avoidance of running. Follow-up echocardiogram in a year's time. Continue metoprolol therapy to reduce ventricular arrhythmia risk. No other treatment options are available at this point time. (2) ICD (implantable cardioverter-defibrillator) in place: Code(s): Z95.810 - Presence of automatic (implantable) cardiac defibrillator Category: Medical Plan: ICD in place for history of sudden cardiac that after running. Underlying cardiac pathology being ARVC. ICD is working well. Has multiple episode of nonsustained VT. Will continue monitor by remote pacer telemetry and follow device remotely every 3 months. Follow up in the clinic in 1 year's time after an echocardiogram. Thank you for allowing me to partake in her care Coding Level of Care Code Est Pt Level 4 (58670) Diagnoses Arrhythmogenic right ventricular dysplasia I42.8 ICD (implantable cardioverter-defibrillator) in place Z95.810 CPT Codes Cardiac Device Check - Cardiac Device 4: 35639-MM Cardiac Device Check, single lead implantable defibrillator ([id number]) EKG - CPT: 80533-Vogwgeikxiasqujox, Complete ([id number])
== END 2023-11-18 15:43 | disposition home or self-care (01) ==
PROVIDERS: PCP Internal Medicine; Visit Provider Internal Medicine Cardiovascular Disease
DX: I42.8 Other cardiomyopathies (principal); Z95.810 Presence of automatic (implantable) cardiac defibrillator
CPT/HCPCS: 93010; 93282; 99214

== ENCOUNTER → 2023-11-18 14:45 | Outpatient (BNVA) | payer OTHER, SELFPAY | PROVIDERS: PCP Internal Medicine; Visit Provider Internal Medicine Cardiovascular Disease | DX: I42.8 Other cardiomyopathies (principal); Z45.02 Encounter for adjustment and management of automatic implantable cardiac defibrillator | CPT/HCPCS: 93005 ==

== ENCOUNTER 2023-12-17 12:54 | Outpatient (AMB) | payer OTHER, SELFPAY ==
[2023-12-17 12:56] VITALS: BP 110/72; BMI 29.0
--- NOTE | 2023-12-17 12:56 | MHC.OFFVIS ---
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 She is doing well with no concerns. Attempting to eat a healthy diet with calcium and vitamin D and stays active with exercise. Currently sexually active. Denies any vaginal dryness or irritation. STI testing offered; she declines. Last pap smear; 2022. Last mammogram; 2022. Colonoscopy is scheduled. Denies any family history of breast, ovarian or colon cancer. 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 Sexual orientation: Straight/Heterosexual Gender identity: Female Female Reproductive History Menstrual Menopause type: natural Total pregnancies: 3 Full term: 3 Date of last pap smear: 12/17/22 History of abnormal pap smear: No History of STI: No Date of Mammogram: 01/18/23 History of abnormal mammogram: No Review of Systems Const All systems reviewed & are unremarkable except as noted in HPI and below Reports as per HPI Eyes Reports no additional complaints ENT Reports no additional complaints Card Reports no additional complaints Resp Reports no additional complaints GI Reports as per HPI and Reports no additional complaints Reports as per HPI Musc Reports no additional complaints Skin/Breast Reports as per HPI Neuro Reports no additional complaints Psych Reports no additional complaints Endo Reports no additional complaints Víctor/Lymph Reports no additional complaints Aller/Immun Reports no additional complaints Physical Exam Vital Signs: Last Vital Signs BP 110/72 12/17/23 12:56 BMI result Body Mass Index 29.0 Const General: cooperative, healthy appearing, no acute distress, well developed and alert Orientation/consciousness: patient oriented x3 HEENT Head: Yes normal to inspection Eyes General: appearance normal, both eyes and all related structures Neck Neck: Yes normal visual inspection Thyroid: Thyroid normal Chest Chest palpation & inspection: normal inspection of the chest and other (no puckering, dimpling, peau de orange, retraction, discharge, masses) Breast/axilla inspection: normal inspection of the breasts Breast/axilla palpation: normal palpation of the breasts Resp Effort & Inspection: normal respiratory effort GI Inspection: Yes normal to inspection Palpation (GI): Soft to palpation Rectal Exam - Female: deferred General: Yes bladder normal to palpation External Female Exam: normal external appearance and normal appearance of the urethra Speculum Exam - Vagina: normal appearance of the vagina, normal palpation, normal vaginal discharge and vagina atrophic Speculum Exam - Cervix: normal appearance of the cervix and normal palpation Bimanual exam- vagina & uterus: normal bimanual exam, normal palpation, uterine size normal, bladder normal to palpation, normal palpation and non-tender Bimanual Exam- Adnexa, other: no masses Skin General skin exam: no rashes or lesions noted Rashes: no rashes Neuro General: patient oriented x3 Cognition (Neuro): normal cognition Extrem General: Yes normal to inspection Psych Attitude: cooperative Thought process: Normal thought process present Assessment & Plan Assessment & Plan (1) Encounter for annual routine gynecological examination: Code(s): Z01.419 - Encounter for gynecological examination (general) (routine) without abnormal findings Category: Medical Plan Discussed: Current recommendations for pap smears per ASCCP guidelines. Breast awareness, periodic self breast exams and yearly mammogram. Maintain a healthy lifestyle, well balanced diet including Calcium 1,200 mg and Vitamin D 600 IU daily, and routine exercise. Contact the office with any postmenopausal bleeding. Patient verbalizes understanding and agrees to the plan of care. She was given opportunity to ask questions and all questions were answered to the best of my ability. 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 This note is constructed using voice recognition software. While every effort has been made to ensure accuracy, youth counselor errors may have been included. Coding Level of Care Code Est Pt Prev Care 40-64y(35086) Diagnoses Encounter for annual routine gynecological examination Z01.419
== END 2023-12-17 13:59 | disposition home or self-care (01) ==
LOC: HO.HWS 12:54
PROVIDERS: PCP Internal Medicine; Visit Provider Advanced Practice Midwife
DX: Z01.419 Encounter for gynecological examination (general) (routine) without abnormal findings (principal)
CPT/HCPCS: 99396

== ENCOUNTER → 2023-12-17 12:54 | Outpatient (BNVA) | payer OTHER, SELFPAY | PROVIDERS: PCP Internal Medicine; Visit Provider Advanced Practice Midwife ==

== ENCOUNTER → 2024-02-01 23:59 | Outpatient (BNV) | payer OTHER, SELFPAY ==
--- NOTE | 2024-02-05 13:54 | MHC.OFFVIS ---
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 ICD function is adequate 88851-Wmlsyi Cardiac Interrogation, implant defibrillator w/interim Procedure code (CPT) selection complete Assessment & Plan Assessment & Plan (1) ICD (implantable cardioverter-defibrillator) in place: Code(s): Z95.810 - Presence of automatic (implantable) cardiac defibrillator Category: Medical Plan: See above Coding Level of Care Code Procedure Only Diagnoses ICD (implantable cardioverter-defibrillator) in place Z95.810 CPT Codes Cardiac Device Check - Cardiac Device 13: 08502-Lbjgfk Cardiac Interrogation, implant defibrillator w/interim ([id number])
== END ==
PROVIDERS: PCP Internal Medicine; Visit Provider Internal Medicine Cardiovascular Disease
DX: Z45.02 Encounter for adjustment and management of automatic implantable cardiac defibrillator (principal)
CPT/HCPCS: 93295

== ENCOUNTER 2024-02-21 09:13 | Day surgery (SDC) | payer OTHER, SELFPAY ==
[2024-02-19 14:22] VITALS: BMI 28.0
[2024-02-21 09:24] VITALS: BMI 29.0
[2024-02-21 09:33] VITALS: BP 157/86; PULSE 65; RESP 16; TEMP 36.3; O2SAT 99
[2024-02-21] MEDS: Lactated Ringers 1,000 ML 100 ML IVCONT (09:46)
[2024-02-21 11:55] VITALS: BP 101/65; PULSE 99; RESP 16; TEMP 36.3; O2SAT 99
--- NOTE | 2024-02-21 12:01 | PM.OP ---
Brief Operative Note Date of Service: 02/21/24 Pre-op diagnosis: Screening Post-op diagnosis: other (Diverticulosis) Procedure: Colonoscopy to the cecum Surgeon: William Betancourt MD Anesthesia: MAC Was an Electrician'S Assistant used for this Procedure?: No Estimated blood loss (mL): 0 Pathology: none sent Condition: stable Disposition: PACU
[2024-02-21 12:10] VITALS: BP 132/76; PULSE 58; RESP 16; O2SAT 99
--- NOTE | 2024-02-21 12:21 | OP_ITS ---
DATE OF SERVICE: 02/21/2024 SURGEON: William Betancourt MD INDICATIONS: The patient presents for evaluation of colorectal cancer screening. Full consent has been obtained from her for this, including risks of bleeding and perforation. PREOPERATIVE DIAGNOSIS: Colorectal cancer screening. POSTOPERATIVE DIAGNOSIS: PROCEDURE PERFORMED: Colonoscopy to the cecum. ESTIMATED BLOOD LOSS: COMPLICATIONS: ANESTHESIA: Monitored anesthesia care. ASSISTANTS: SPECIMENS: POSTOPERATIVE DIAGNOSES: Colorectal cancer screening, mild sigmoid diverticulosis, small internal hemorrhoids. DESCRIPTION OF PROCEDURE: The patient was placed in the left lateral decubitus position. The digital rectal exam revealed no abnormalities. The Olympus video pediatric colonoscope was entered into the rectum and advanced easily to the cecum. Once in the cecum, I did identify normal-appearing cecal pouch with appendiceal orifice and a normal-appearing ileocecal valve. The entire cecum and ileocecal valve appeared normal. There was transillumination of light deep in the right lower quadrant. The scope was slowly withdrawn assessing all mucosal surfaces carefully. Preparation was excellent. I did not visualize any sign of polyps, colitis, nor angiodysplasia. There was a mild amount of sigmoid diverticulosis. In the rectum, scope was retroflexed visualizing internal hemorrhoids, but no other pathology. The rectal mucosa appeared normal. Scope was straightened and withdrawn from the patient. She tolerated the procedure well and was returned to the recovery area in stable condition. IMPRESSION: 1. Mild diverticulosis. 2. Internal hemorrhoids. PLAN: Given today's negative exam, I would recommend a followup coloscopy in 10 years. She will otherwise see me on a p.r.n. basis. MD ALY Souza/MARIBELLL / [id number]
[2024-02-21 12:25] VITALS: BP 125/75; PULSE 53; RESP 16; TEMP 36.1; O2SAT 98
== END 2024-02-21 12:40 | disposition home or self-care (01) ==
PROVIDERS: PCP Internal Medicine; Visit Provider Internal Medicine
PROC: 0DJD8ZZ Inspection of Lower Intestinal Tract, Via Natural or Artificial Opening Endoscopic (ICD-10-PCS; CPT 45378; principal; 2024-02-21 10:40)
DX: Z12.11 Encounter for screening for malignant neoplasm of colon (principal); I42.8 Other cardiomyopathies; Z86.74 Personal history of sudden cardiac arrest; Z95.810 Presence of automatic (implantable) cardiac defibrillator; Z79.899 Other long term (current) drug therapy; Z87.442 Personal history of urinary calculi
CPT/HCPCS: 45378; J2704

== ENCOUNTER → 2024-05-04 23:59 | Outpatient (BNV) | payer OTHER, SELFPAY ==
--- NOTE | 2024-05-05 10:43 | MHC.OFFVIS ---
Intake Visit Reasons: Remote ICD check- [employer] Allergies No Known Allergies Allergy (Verified 02/21/24 09:21) [facility] Medical History (Updated 02/19/24 @ 14:26 by Madalyn Mata RN) Cardiac arrest Renal calculi ICD (implantable cardioverter-defibrillator) in place Arrhythmogenic right ventricular dysplasia Asthma Osteoporosis Surgical History (Updated 02/21/24 @ 09:23 by Rosie Joaquin RN) H/O heart surgery H/O colonoscopy Hx of lithotripsy History of appendectomy Family History Father Diabetes HTN (hypertension) Social History Are you a primary child care associate teacher to a significant other at home: No Do you presently have visiting nurse or other home services: No Alcohol intake: never Patient Tobacco Use Status: Never used Tobacco Use of substances other than those prescribed or required for medical reasons: No Have you been hit, kicked, punched, or otherwise hurt by someone within the past year? 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 Battery life is low at about 6 months. Multiple episode of nonsustained VT noted. Otherwise ICD function is adequate [id number] Cardiac Interrogation, implant defibrillator w/interim Procedure code (CPT) selection complete Assessment & Plan Assessment & Plan (1) ICD (implantable cardioverter-defibrillator) in place: Comment: 2010 Code(s): Z95.810 - Presence of automatic (implantable) cardiac defibrillator Category: Medical Plan: See above Coding Level of Care Code Procedure Only Diagnoses ICD (implantable cardioverter-defibrillator) in place Z95.810 CPT Codes Cardiac Device Check - Cardiac Device 13: 78264-Khfwkg Cardiac Interrogation, implant defibrillator w/interim ([id number])
== END ==
PROVIDERS: PCP Internal Medicine; Visit Provider Internal Medicine Cardiovascular Disease
DX: Z45.02 Encounter for adjustment and management of automatic implantable cardiac defibrillator (principal)
CPT/HCPCS: 93295

== ENCOUNTER 2024-05-06 08:04 | Outpatient (REF) | payer OTHER, SELFPAY ==
--- NOTE | ~2024-05-06 | MM_ITS ---
EXAMINATION: MM SCREENING DIGITAL BREAST TOMOSYNTHESIS, BILATERAL CLINICAL INFORMATION: Screening. Asymptomatic. COMPARISON: Mammography: Comparison is made with available priors TECHNIQUE: Digital breast mammography with tomosynthesis is performed in both the craniocaudal and mediolateral oblique views along with computer-aided detection (CAD). FINDINGS: The breasts are heterogeneously dense, which may obscure small masses (ACR BI-RADS breast composition Category c). Pacemaker overlies and obscures the superior posterior left breast on MLO view. There are no significant masses, abnormal calcifications, or other abnormalities. MM/MM tomosynthesis screening BI IMPRESSION: No mammographic evidence of malignancy. ASSESSMENT: BI-RADS BI-RADS 2 - Benign Findings RECOMMENDATION: Routine annual mammography screening. 1 year F/U This examination should not preclude the clinical evaluation of a suspicious palpable abnormality. This patient's information was entered into a reminder system with a target due date for their next mammogram. Electronically signed by: Goldie Hernandez DO 05/15/2024 12:59 PM CIRILO HAHN
== END 2024-05-06 08:05 | disposition home or self-care (01) ==
LOC: HO.MAMMO 08:04
PROVIDERS: PCP Internal Medicine; Visit Provider Internal Medicine
DX: Z12.31 Encounter for screening mammogram for malignant neoplasm of breast (principal)
CPT/HCPCS: 77063; 77067

== ENCOUNTER → 2024-05-06 08:30 | Outpatient (BNV) | payer OTHER, SELFPAY | PROVIDERS: PCP Internal Medicine; Visit Provider Internal Medicine | DX: Z12.31 Encounter for screening mammogram for malignant neoplasm of breast (principal) | CPT/HCPCS: 77063; 77067 ==

== ENCOUNTER 2024-07-16 01:19 | Emergency (ER) | payer OTHER, SELFPAY ==
--- OUTSIDE RECORDS SUMMARY | 2024-07-16 01:22 | XMS_ITS ---
Author Organization [employer]. 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 KONZA Care Team Providers Care Screen Printer Name Role Phone TRISTAN ARGUELLES Unavailable Unavailable TRISTAN ARGUELLES Unavailable Unavailable Unavailable Unavailable Unavailable Unavailable Unavailable Unavailable Unavailable Unavailable Unavailable MD JARAD CHRISTIE Unavailable Unavailable Clair MAGALLON, Anupam Primary Care Provider Encounters Encounter Date Encounter Type Encounter Diagnosis Care Pro vider Facility Start: 04-22-2024 [id number] End: 04-22-2024 11:08-0400 Patient encounter procedure Atherosclerotic heart disease of [place] coronary artery with other forms of angina pectoris [facility] Start: 12-25-2023 09:15-0400 Patient encounter procedure [facility] Start: 11-12-2023 15:30-0400 Patient encounter procedure [facility] Start: 10-01-2023 08:45-0400 End: 10-01-2023 08:58-0400 Patient encounter procedure Atherosclerotic heart disease of [place] coronary artery with other forms of angina pectoris [facility] Start: 09-04-2023 08:15-0500 End: 09-04-2023 08:30-0500 Patient encounter procedure Viral disease [place] Deborah DO Work Phone: [facility] [place] Comment on above: Viral syndrome (Primary Dx) Medical Equipment Procedure Code Equipment Code Equipment Origin al Text Equipment Identifier Dates Stent Coronary D rug Eluting [place] Chromium Rapid Exchange Dual Flex Balloon Dilip Macoupin 3.5x26mm - [id number] FDA Start: 11-19-2022 Immunizations Immunization Date Immunization Notes Care Provider Kathleen goodwin 04-11-2022 SARS-COV-2 (COVID-19 ) vaccine, mRNA, spike protein, LNP, bivalent, preservative free, 30 mcg/0.3 mL dose, jasbir-sucrose formulation Eliot Gronsky DO Work Phone: [facility] 10-11-2021 SARS-COV-2 (COVID-19 ) vaccine, mRNA, spike protein, LNP, preservative free, 30 mcg/0.3mL dose Eliot Gronsky DO Work Phone: [facility] 02-13-2021 SARS-COV-2 (COVID-19 ) vaccine, mRNA, spike protein, LNP, preservative free, 30 mcg/0.3mL dose [place] Gronsky DO Work Phone: [facility] 08-18-2020 SARS-COV-2 (COVID-19 ) vaccine, mRNA, spike protein, LNP, preservative free, 30 mcg/0.3mL dose [place] Gronsky DO Work Phone: [facility] 07-28-2020 SARS-COV-2 (COVID-19 ) vaccine, mRNA, spike protein, LNP, preservative free, 30 mcg/0.3mL dose Eliot Corporamansky DO Work Phone: [facility] Medications Current Medications Medication Drug Class(es) Dates Sig (Normalized) Sig (Original) ALPRAZolam 0.5 MG Oral Tablet (1 source) Benzodiazepine take 1 tablet by mouth twice daily as needed for anxiety Take 0.5 mg 2 times daily as needed by mouth for Anxiety Indications: Feeling Anxious aspirin 81 MG Delayed Release Oral Tablet (1 source) Platelet Aggregation Inhibitor, Nonsteroidal Anti-inflammatory Drug take 1 tablet by mouth once daily Take 81 mg daily by mouth Indications: PRIMARY PREVENTION HIGH RISK clopidogrel 75 MG Oral Tablet (1 source) P2Y12 Platelet Inhibitor Start: 11-19-2022 take 1 tablet by mouth once daily Take 1 Tablet (75 mg) daily by mouth Indications: Percutaneous Coronary Intervention dextromethorphan hydrobromide 3 MG/ML / promethazine hydrochloride 1.25 MG/ML Oral Solution (1 source) Phenothiazine, Uncompetitive V-eezkgu-R-aspartat e Receptor Antagonist, Sigma-1 Agonist Start: 09-04-2023 End: 09-11-2023 Take 5 mL 4 times daily as needed by mouth for Cough for up to 7 days 24 HR diltiazem hydrochloride 120 MG Extended Release Oral Capsule (1 source) Calcium Channel Jovanni Start: 10-31-2022 take 1 capsule by mouth once daily, then take 1 capsule by mouth every twenty-four hours Take 120 mg daily by mouth ezetimibe 10 MG Oral Tablet (1 source) Dietary Cholesterol Absorption Inhibitor take 1 tablet by mouth once daily Take 10 mg daily by mouth Payers Date Payer Normalized Payer [id number] Plan of Treatment Date Care Activity Detail Author Start: 02-28-2032 Colonoscopy Colonoscopy [facility] Start: 02-28-2032 Screening for malignant neoplasm of colon Colorectal Cancer Screening [facility] Start: 05-20-2024 Hemoglobin A1c measurement HEMOGLOBIN A1C [facility] Start: 05-20-2024 LIPIDS LIPIDS [facility] Start: 03-01-2023 Administration of influenza vaccine FLU VACCINE (#1) [facility] Start: 03-01-2023 COVID-19 (SARS-CoV-2) Vaccine ( season) COVID-19 (SARS-CoV-2) Vaccine () [facility] Start: 10-18-2011 Fecal Occult Blood Test (FOBT) Fecal Occult Blood Test (FOBT) [facility] Start: 10-18-2011 Screening for malignant neoplasm of colon [facility] Start: 10-18-2011 Shingrix Vaccine (1 of 2) Shingrix Vaccine (1 of 2) [facility] Start: 2001 Flexible sigmoidoscopy Flexible Sigmoidoscopy [facility] Start: 1982 Microscopic observation [Identifier] in Cervix by Cyto stain PAPSMEAR [facility] Start: 1980 ARTERIAL DUPLEX SCAN BILAT LE ARTERIAL DUPLEX SCAN BILAT LE [facility] Start: 1980 TETANUS / TDAP SHOT TETANUS / TDAP SHOT [facility] Start: 1973 Adolescent depression screening assessment Yearly Depression Screen [facility] Start: 10-18-1971 3 comp foot exam completed FOOT EXAM [facility] Start: 10-18-1971 DIABETIC RETINAL EYE EXAM DIABETIC RETINAL EYE EXAM [facility] Start: 10-18-1971 Urine Microalbumin/Creatinine Ratio Urine Microalbumin/Creatinine Ratio [facility] Start: 10-18-1967 Pneumococcal Immunization 0-64 (1 of 2 - PCV) Pneumococcal Immunization 0-64 (1 of 2 - PCV) [facility] Start: 1964 Wellness Exam Wellness Exam [facility] Start: 1961 Hepatitis C Antibody Screen Hepatitis C Antibody Screen [facility] Problems Active Problems Problem Classification Problem Date Last Recorded Documented Date Chronic Condition Indicator Provider Cardiac dysrhythmias (1 source) Sick sinus syndrome; Translations: [Sick sinus syndrome] 11-19-2022 Chronic [facility] Phone: Conduction disorders (1 source) Cardiac pacemaker in situ; Translations: [Presence of cardiac pacemaker] 11-19-2022 Chronic [facility] Phone: Residual codes; unclassified (3 sources) Family history of ischemic heart disease and other diseases of the circulatory system 04-22-2024 Not applicable Residual codes; unclassified (1 source) FH: Cardiovascular disease; Translations: [Family history of ischemic heart disease and other diseases of the circulatory system] 11-19-2022 Not applicable [facility] Phone: Residual codes; unclassified (1 source) Statin not tolerated; Translations: [Other specified health status] 11-19-2022 Not applicable [facility] Phone: Past or Other Problems Problem Classification Problem Date Last Recorded Documented Date Chronic Condition Indicator Provider Cardiac dysrhythmias (1 source) Palpitations; Translations: [Palpitations] 11-19-2022 Episodic [facility] Phone: Other circulatory disease (1 source) Carotid bruit; Translations: [Other specified symptoms and signs involving the circulatory and respiratory systems] 11-19-2022 Episodic Eliot Gronsky DO Work Phone: Comment on above: Overview: left Viral infection (1 source) Viral disease; Translations: [Viral infection, unspecified] 09-04-2023 Episodic [place] Gronsky DO Work Phone: Procedures Date Procedure Procedure Detail Performing Clinician Start: 09-04-2023 Iaadiadoo influenza completed Luciano olpaulina Moniquensky DO Work Phone: Results Test Name Value Interpretation Reference Range Facility Date Time Result Note RIGHT ANKLE TARGETED ULTRASO UNDon 12-25-2023 RIGHT ANKLE TARGETED ULTRASOUND [facility]~Name: ALISIA FOX ~ ~: 1960 JACOBY MCDONALD DPM ~ [facility] ~Exam Date: 12/25/[address] ~Location: [place] [address] ~EXAM: TARGETED ULTRASOUND EXAMINATION OF THE RIGHT ANKLE~CLINICAL INDICATION: Clinical history of right lateral ankle pain.~TECHNIQUE: Targeted ultrasound of the right ankle was performed with attention~to the peroneal tendons.~COMPARIS ON: CT dated 11/12/2023.~FINDIN GS: The peroneus brevis tendon is dislocated anteriorly from the~retromalleola r groove. There is some tendinosis distal to this area of~dislocation, but there is no discrete tendon tear.~Inferior to the lateral malleolus, there are multiple soft tissue calcifications~wh ich are in close association with the peroneus longus and which somewhat~limits evaluation of the peroneus longus tendon. Within this limitation, there~is tendinosis and partial-thickness tearing in the vicinity of the~calcification s as well as partial-thickness tearing more distally near the os~peroneum.~Ther e is no significant fluid or hyperemia on color Doppler associated with the~peroneal tendons. The anterior talofibular ligament is intact. The~calcaneofibul ar ligament is poorly delineated due to the calcifications.~I MPRESSION: ~Partial thickness tearing of the peroneus longus tendon inferior to the lateral~malleolus in the vicinity of the soft tissue calcifications, noting that the~soft tissue calcifications are closely associated with the tendon and do~somewhat limit its evaluation.~Addit ional partial thickness tear of the peroneus longus tendon more distally~near the os peroneum.~Anterio r dislocation of the peroneus brevis tendon from the retromalleolar~gr oove with tendinosis but no discrete tendon tear.~Thank you for the courtesy of this referral.~Electro navi access to images available to referring providers online.~APPROVED BY: Abraham Wynne MD 12/25/2023 8:22 PM~automobile assembly supervisor may call [phone] to speak with a radiologist. [facility] CT RIGHT ANKLE WITHOUT CONTR Pawel 11-12-2023 CT RIGHT ANKLE WITHOUT CONTRAST [facility]~Name: ALISIA FOX ~ ~: 1960 ONEIDA RODRIGUEZ DPM ~ [facility] [facility] ~Exam Date: 11/12/2023 [address]~Location: [place] [address] ~EXAM: CT RIGHT ANKLE WITHOUT CONTRAST~CLINICAL INDICATION: Right ankle pain with new trauma. History of surgery~same ankle.~TECHNIQUE: CT evaluation of the right ankle was performed without intravenous~contr ast utilizing thin section axial images. Sagittal and coronal reformatted~image s were obtained. CT was performed using one or more dose reduction~Emulis including automated exposure control, adjustment of the mA and/or kV~according to patient size, and/or use of iterative reconstruction technique.~COMPAR PRASHANT: None.~Count of known CT scans and NM Myocardial Perfusion studies in last 12 months~(Quality Measure G9321): 1~FINDINGS: ~BONES: S/p arthrodesis of the subtalar joint. The fusion appears matured.~There appears to be 2 large montrell. The hardware appears intact.~There are multiple bone fragments adjacent to the lateral malleolus. There are~2 small bone fragments adjacent to the medial meniscus. These probably~represen t old avulsion fractures and/or small foci of myositis ossificans.~There is no acute fracture. The ankle mortise appears maintained.~Mild arthritis of the calcaneocuboid joint. The mid and forefoot are~unremarkable. Minimal arthritis of the tibiotalar joint.~JOINT FLUID: No significant joint effusion.~MUSCLES : Unremarkable~SUBC UTANEOUS TISSUES: There appears to mild circumferential subcutaneous edema~about the ankle and midfoot. No focal soft tissue abnormality is identified.~OTHER : No other significant abnormalities.~IM PRESSION: ~Right ankle CT demonstrates:~S/p arthrodesis of the subtalar joint. The fusion appears matured. The~hardware appears intact.~There are multiple small ossified bodies adjacent to the medial and lateral~malleoli which are felt to present tiny old avulsion fractures and/or small foci~of myositis ossificans. There is no acute fracture. The ankle mortise is~maintained.~Mi ld arthritis of the calcaneocuboid joint. Minimal tibiotalar joint arthritis.~Thank you for the courtesy of this referral.~Electro navi access to images available to referring providers online.~APPROVED BY: Prashanth Love MD 11/15/2023 9:35 AM~automobile assembly supervisor may call [phone] to speak with a radiologist. Invalid Interpretation Code [facility] POCT INFLUENZA A/Bon 024 RAPID FLU A, POC Negative Negative ckensa [facility] 09-03 08:38 -0500 RAPID FLU A, POC Negative Negative Rapid Flu B, POC Negative Negative Haensa [facility] 09-03 08:38 -0500 Rapid Flu B, POC Negative Negative Internal Control Passed? Yes [facility] 09-03 08:38 -0500 Internal Control Passed? Yes Interpretation and review of laboratory results Normal [facility] 09-03 08:38 -0500 [facility] 09-03 08:38 -0500 No Panel Information MYCHART ACCESS - CODE (Contact Type) CONTACT TYPE: APPT~(PATIENT EMPLOYEE STATUS) EMPLOYMENT STATUS: Retired~(Service Area) AUTHORIZED SERVICE AREAS: 11~(Service Area) AUTHORIZED SERVICE AREAS: 800~(Service Area) AUTHORIZED SERVICE AREAS: 600~(APPT PROCEDURES) APPT PROCEDURES: [id number]~(LOP-P ROVIDER) ORDERING PROVIDER FROM [facility] DATA BASE: [id number]^SAYBOLT^MA TTHEW^D^^^^^EPIC^ ^^^PROVID~(LOP-[place] OVIDER) ORDERING PROVIDER FROM [facility] DATA BASE: [id number]^SAYBOL T^TRISTAN^D^^^^^E PIC^^^^PNPI~(LOP- PROVIDER) ORDERING PROVIDER FROM SER DATA BASE: [id number]^SAYBOLT^MAT THEW^D^^^^^INVLM^ ^^^PROVIDLM~(LOP- PROVIDER) ORDERING PROVIDER FROM SER DATA BASE: [id number]^SAYBOLT^MA TTHEW^D^^^^^NB^^^ ^RI~(Med last reviewed) MEDS LAST REVIEW INSTANT: [id number]~(PHARMAC Y PREFERENCES) PHARMACY PREFERENCES: [facility] [address]~(Patient Registries) PATIENT REGISTRIES: ~(Patient Registries) PATIENT REGISTRIES: ~(Patient Registries) PATIENT REGISTRIES: ~(Patient Registries) PATIENT REGISTRIES: ~(Patient Registries) PATIENT REGISTRIES: ~(Patient Registries) PATIENT REGISTRIES: ~(Patient Registries) PATIENT REGISTRIES: ~(Patient Registries) PATIENT REGISTRIES: ~(Patient Registries) PATIENT REGISTRIES: ~(Patient Registries) PATIENT REGISTRIES: ~(Patient Registries) PATIENT REGISTRIES: ~([facility]) MYCHART ACTIVATION STATUS: ACTIVATED~(MAC) MYCHART ACCESS - CODE: [id number] [facility] MYCHART ACCESS - CODE (Contact Type) CONTACT TYPE: APPT~(PATIENT EMPLOYEE STATUS) EMPLOYMENT STATUS: Retired~(Service Area) AUTHORIZED SERVICE AREAS: 11~(Service Area) AUTHORIZED SERVICE AREAS: 800~(Service Area) AUTHORIZED SERVICE AREAS: 600~(APPT PROCEDURES) APPT PROCEDURES: [id number]~(LOP-P ROVIDER) ORDERING PROVIDER FROM SER DATA BASE: [id number]^SAYBOLT^MA TTHEW^D^^^^^EPIC^ ^^^PROVID~(LOP-[place] OVIDER) ORDERING PROVIDER FROM [facility] DATA BASE: [id number]^SAYBOL T^TRISTAN^D^^^^^E PIC^^^^PNPI~(LOP- PROVIDER) ORDERING PROVIDER FROM SER DATA BASE: 88269^SAYBOLT^MAT THEW^D^^^^^INVLM^ ^^^PROVIDLM~(LOP- PROVIDER) ORDERING PROVIDER FROM SER DATA BASE: [id number]^SAYBOLT^MA TTHEW^D^^^^^NB^^^ ^RI~(Med last reviewed) MEDS LAST REVIEW INSTANT: [id number]~(PHARMAC Y PREFERENCES) PHARMACY PREFERENCES: [facility] [place] [address] [address]~(Patient Registries) PATIENT REGISTRIES: ~(Patient Registries) PATIENT REGISTRIES: ~(Patient Registries) PATIENT REGISTRIES: ~(Patient Registries) PATIENT REGISTRIES: ~(Patient Registries) PATIENT REGISTRIES: ~(Patient Registries) PATIENT REGISTRIES: ~(Patient Registries) PATIENT REGISTRIES: ~(Patient Registries) PATIENT REGISTRIES: ~(Patient Registries) PATIENT REGISTRIES: ~(Patient Registries) PATIENT REGISTRIES: ~(Patient Registries) PATIENT REGISTRIES: ~(Patient Registries) PATIENT REGISTRIES: ~(MAS) MYCHART ACTIVATION STATUS: ACTIVATED~(MAC) MYCHART ACCESS - CODE: [id number] [facility] Social History Date Type Detail Facility Start: 09-04-2023 Alcohol intake Current drinker of alcohol (finding) [facility] Start: 09-04-2023 History of Social function [facility] Start: 09-04-2023 Tobacco use panel [facility] Start: 08-25-2023 End: 09-04-2023 Exposure to SARS-CoV-2 (event) Not sure [facility] Start: 11-16-2022 Tobacco smoking status NHIS Never smoked tobacco [facility] Start: 11-16-2022 Tobacco use and exposure Smokeless tobacco non-user [facility] Start: 11-16-2022 Alcohol Comment social [facility] Start: 11-13-2022 Gender identity Identifies as female gender (finding) [facility] Start: 11-13-2022 Sexual orientation Heterosexual (finding) [facility] Start: 1960 Sex Assigned At Not on file [facility] Vital Signs Date Time Vital Sign Value Performing Clinician Facility 09-04-2023 08:25-0500 Body height 170.2 cm Eliot Cabrera DO Work Phone: [facility] 09-04-2023 08:25-0500 Body mass index (BMI) [Ratio] 19.58 kg/m2 Eliot Cabrera DO Work Phone: [facility] 09-04-2023 08:25-0500 Body temperature 98.2 [degF] Eliot Cabrera DO Work Phone: [facility] 09-04-2023 08:25-0500 Body weight 56.7 kg Eliot Cabrera DO Work Phone: [facility] 09-04-2023 08:25-0500 BP (Blood pressure) 118/72mm[Hg] Eliot Cabrera DO Work Phone: [facility] 09-04-2023 08:25-0500 Heart rate 98 /min Eliot Cabrera DO Work Phone: [facility] 09-04-2023 08:25-0500 Respiratory rate 16 /min Eliot Cabrera DO Work Phone: [facility] 09-04-2023 08:25-0500 SaO2% (BldA) [Mass fraction] 99 % Eliotbelinda Cabrera DO Work Phone: [facility] Instructions 09-04-2023 Patient InstructionsAttachments Note Date & Type Note Facility 09-04-2023 Instructions Eliot Cabrera DO - 09/04/2023 8:15 EST Tylenol for fever and aches as needed Plain mucinex for congestion Phenergan dm for cough Follow up pcp Recheck as needed The following attachments cannot be sent through Care Everywhere.Viral Syndrome (Discharge Care) ([place])documented in this encounter [facility] Evaluation note Note Date & Type Note Facility Evaluation note Diagnosis Viral syndrome- Primary Unspecified viral infection, in conditions classified elsewhere and of unspecified site documented in this encounter [facility] History of Present illness Narrative Eliot Cabrera DO - 09/04/2023 0815 EST Note Date & Type Note Facility History of Present illness Narrative Images from the original note were not included. PT NAME: Alisia Fox DATE OF VISIT:09/04/2023 62 y.o. female PCP: ANUPAM DAMICO MD Assessment & Plan Problem List Items Addressed This Visit Reviewed: 11/19/2022 7:40 by Yamilex Richardson APN None Subjective REASON FOR VISIT: URI (Pt comes in today for cough fever and body /headache , onset 1 day ago ) Sudden cough headache [place] feverish no sob Chest congestion Since yest The history is provided by the patient. URI Associated symptoms include congestion and coughing. Review of Systems HENT: Positive for congestion. Respiratory: Positive for cough. Past Medical History: Diagnosis Date Cancer (HCC) Coronary atherosclerosis elevated calcium score 700 Hx of syncope Hyperlipidemia Hypertension SSS (sick sinus syndrome) (HCC) Statin intolerance severe myalgias MEDICATIONS: No outpatient medications have been marked as taking for the 09/04/23 encounter (Office Visit) with PROVIDER QUAN [id number] 20. Past Surgical History: Procedure Laterality Date BREAST SURGERY CARDIAC PACEMAKER PLACEMENT CORONARY ANGIOGRAPHY N/A 11/19/2022 CORONARY ANGIOGRAPHY performed by Tristan Arguelles MD at [facility] [employer] INTRAVASCULAR ULTRASOUND N/A 11/19/2022 Intravascular Ultrasound performed by Tristan Arguelles MD at [facility] [employer] LEFT HEART CATH N/A 11/19/2022 Left Heart Cath performed by Tristan Arguelles MD at [facility] [employer] MASTECTOMY Bilateral PERCUTANEOUS CORONARY INTERVENTION N/A 11/19/2022 Percutaneous Coronary Intervention performed by Tristan Arguelles MD at [facility] [employer] History reviewed. No pertinent family history. Comprehensive Problem List Diagnosis Coronary artery disease involving [place] coronary artery of [place] heart Family history of cardiovascular disease SSS (sick sinus syndrome) (HCC) Palpitations Statin intolerance Pacemaker HLD (hyperlipidemia) Carotid bruit Elevated coronary artery calcium score Social History Socioeconomic History Marital status: Tobacco Use Smoking status: Never Smokeless tobacco: Never Substance and Sexual Activity Alcohol use: Yes Comment: social Drug use: Never Objective Physical Exam Constitutional: Appearance: Normal appearance. HENT: Head: Normocephalic and atraumatic. Right Ear: Tympanic membrane, ear canal and external ear normal. Left Ear: Tympanic membrane, ear canal and external ear normal. Nose: Nose normal. Mouth/Throat: Mouth: Mucous membranes are moist. Pharynx: Oropharynx is clear. Cardiovascular: Rate and Rhythm: Normal rate and regular rhythm. Heart sounds: Normal heart sounds. Pulmonary: Effort: Pulmonary effort is normal. Breath sounds: Normal breath sounds. Musculoskeletal: Cervical back: Normal range of motion and neck supple. Neurological: General: No focal deficit present. Mental Status: She is alert and oriented to person, place, and time. Psychiatric: Mood and Affect: Mood normal. Behavior: Behavior normal. Height: 1.702 m (5' 7 ) Weight: Weight: 56.7 kg (125 lb) BMI: Body mass index is 19.58 kg/m?. Vital Signs BP: 118/72 Pulse: 98 Temp: 98.2 ?F (36.8 ?C) Resp: 16 SpO2: 99 % Labs & Imaging EM TIME ADVANCED: NON-FACE TO FACE TOTAL TIME (min).: 0 FACE TO FACE TOTAL TIME (min).: 0 ALL TOTAL TIME (min).: 0 I certify that the reported time represents my personal time spent performing all the activities stated for this patient on 09/04/2023. SIGNATURE: ELIOT CABRERA DO (Electronically Signed) documented in this encounter [facility] Reason for visit Narrative Note Date & Type Note Facility Reason for visit Narrative Reason Comments URI Pt comes in today fo r cough fever and body /headache , onset 1 day ago [facility] Additional Source Comments CARE TEAM INFORMATION (unrec ognized section and content) Screen Printer Role Location (CARII) JARAD STEVEVenancio Knapp [address], [place] [address] Care Teams (unrecognized sec tion and content) Screen Printer Relationship Specialty Start Date End Date Anupam Damico MD [address], [address] [place] [address] PCP - General Internal Medicine - General 11/13/22 FOR RECORDS PERTAINING TO PATIENTS WHO ARE OR HAVE BEEN ENROLLED IN A CHEMICAL DEPENDENCY/SUBSTANCEABUSE PROGRAM, SOME INFORMATION MAY BE OMITTED. This clinical summary was aggregated from multiple sources. Caution should be exercised in using it in the provision of clinical care. This summary normalizes information from multiple sources, and as a consequence, information in this document may materially change the coding, format and clinical context of patient data. In addition, data may be omitted in some cases. CLINICAL DECISIONS SHOULD BE BASED ON THE PRIMARY CLINICAL RECORDS. [employer] provides no warranty or guarantee of the accuracy or completeness of information in this document.The following information is based on time limited clinical information
[2024-07-16 01:26] VITALS: BP 115/76; PULSE 82; RESP 18; TEMP 37.6; O2SAT 96; BMI 29.4
[2024-07-16 05:23] VITALS: BP 128/82; PULSE 70; RESP 16; TEMP 36.8; O2SAT 97
[2024-07-16 06:19] LABS: Influenza A PCR POSITIVE (Negative); Influenza B PCR NEGATIVE (Negative); Resp Syncy Virus RNA Qual PCR NEGATIVE (Negative); SARS COV2 PCR INHOUSE NEGATIVE (Negative)
--- NOTE | 2024-07-16 06:54 | ED_ITS ---
HPI - Headache General Chief Complaint: Headache Stated Complaint: Head pain Time Seen by Provider: 07/16/24 06:30 Source: patient and family Mode of arrival: ambulatory Limitations: no limitations History of Present Illness ED Provider: Loyd Serrato PA-C HPI Narrative: 63-year-old female with a history of iliac arrest, right ventricular dysplasia status post ICD, asthma, osteoporosis, kidney stones who presents to the ER for evaluation of headache. Patient reports earlier in the week she developed nausea and vomiting for 2 days. She then developed facial pain and pressure. She was seen in the office by her doctor, tested negative for COVID and was prescribed antibiotics for sinus infection. Patient then reports developing increased pressure in her ears in the top of her head. She states headache woke her up out of sleep last night. She took Motrin and has been alternating it with Tylenol with minimal relief. Headache is mostly in the top of her head, is worse when she lays down. No other neuro symptoms including vision changes, numbness, weakness. She is not on anticoagulation. No trauma. Headache currently 12/08. MD elicited complaint: headache Onset (ago): day(s) Onset description: gradually Location: generalized Severity: moderate Pain scale (0-10): 6 Quality & Timing: aching Exacerbating factors: other (Supine positioning) Relieving factors: nothing Associated symptoms: nausea, vomiting, cough and malaise Treatments prior to arrival: ibuprofen Related Data Home Medications ?Medication ?Instructions ?Recorded ?Confirmed estradiol 0.01% (0.1 mg/gram) 1 g vaginal 2XW PRN as directed 02/21/24 02/21/24 vaginal cream (Estrace) Previous Rx's ?Medication ?Instructions ?Recorded metoprolol succinate 50 mg 50 mg PO DAILY #90 tabs 07/02/24 tablet,extended release 24 hr mprbxvktll-tqdrvbgkxnmof-tjnotzoz 1 cap PO TID PRN headache #10 caps 07/16/24 50 mg-300 mg-40 mg capsule (Fioricet) Allergies Allergy/AdvReac Type Severity Reaction Status Date / Time No Known Allergies Allergy Verified 07/16/24 01:30 Review of Systems Review of Systems: Yes all other systems are reviewed and are negative PMFSH Past Medical History Medical History (Updated 07/16/24 @ 07:00 by CHERRIE Contreras) Cardiac arrest Renal calculi ICD (implantable cardioverter-defibrillator) in place Arrhythmogenic right ventricular dysplasia Asthma Osteoporosis Surgical History (Updated 02/21/24 @ 09:23 by Rosie Joauqin RN) H/O heart surgery H/O colonoscopy Hx of lithotripsy History of appendectomy Family History Family History Father Diabetes HTN (hypertension) Social History Social History Are you a primary emergency care tech to a significant other at home: No Do you presently have visiting nurse or other home services: No Alcohol intake: current Alcohol intake frequency: holidays/special occasions only Patient Tobacco Use Status: Never used Tobacco Smoked in Last 30 Days: No Use of substances other than those prescribed or required for medical reasons: No Advance Directives: No Advance Directives Information Provided: Yes Current occupational status: employed Current occupation: [employer] Sexual orientation: Straight/Heterosexual Gender identity: Female Physical Exam Vital Signs: Vital Signs: Last Vital Signs Temp 98.2 F 07/16/24 05:23 Pulse 70 07/16/24 05:23 Resp 16 07/16/24 05:23 BP 128/82 07/16/24 05:23 Pulse Ox 97 07/16/24 05:23 O2 Del Method Room Air 07/16/24 05:23 BMI result Body Mass Index 29.4 Appearance: Alert. Oriented X3. No acute distress. Head: normocephalic, atraumatic. Eyes: Pupils equal, round and reactive to light. EOMI, no nystagmus ENT: Pharynx normal. No tonsillar swelling or exudate. Right sided effusion with normal appearance of the TM. Left EAC w/ cerumen. Neck: Normal inspection. Neck supple. No LAD CVS: Normal heart rate and rhythm. Pulses normal. Respiratory: No respiratory distress. Breath sounds normal. Abdomen: Soft and nontender. +BS x4 Skin: Skin warm and dry. Normal skin color. Normal skin turgor. No rashes. Extremities: No lower extremity edema. No joint swelling. Neuro/psych: Oriented X 3. No motor deficit. No sensory deficit. CN II-XII intact. Normal speech and cognition. nonfocal Medications Administered Discontinued Medications Generic Name Dose Route Start Last Admin Trade Name Freq PRN Reason Stop Dose Admin Acetaminophen/Butalbital/Caffeine 1 tab 07/16/24 06:51 07/16/24 07:13 Butalb/Acetamin/Caff 50/325/40 Tablet PO 07/16/24 06:52 1 tab ONCE ONE Administration Ketorolac Tromethamine 30 mg 07/16/24 06:51 07/16/24 07:14 Ketorolac Tromethamine 30 Mg/Ml Vial IM 07/16/24 06:52 30 mg ONCE ONE Administration Medical Decision Making Medical Decision Making [facility] Narrative: 63 yo female presenting to the ER for evaluation of a headache. Headache woke her from sleep but is not the worst headache of her life. Neurologically intact. NIH 0. VSS. Appears well. Patient has other symptoms including facial pressure, nasal congestion, nausea, cough. She tested positive for influenza A today. she is vaccinated. symptoms >4 days so no role for tamiflu. Low suspicion for organic/intracranial cause. will hold off on CT scan for now. given fioicet and toradol in the ER with improvement in symptoms. comfortable with discharge home with supportive care. pt agrees w/ plan and all questions were answered. Differential Diagnosis Differential Diagnoses: The differential diagnosis associated with the presentation includes covid, flu, viral URI, sinusitis, tension headache, migraine headache, low suspicion for ICH/SAH Admission/Observation Consideration of admission/observation: Escalation of care including admission/observation considered Lab Data [facility] Lab Attestation statement: I reviewed the patient's lab results. Labs: Lab Results 07/16/24 Range/Units 05:31 Influenza Type A (PCR) POSITIVE A (Negative) Influenza Type B (PCR) NEGATIVE (Negative) RSV RNA Qual (PCR) NEGATIVE (Negative) SARS-CoV-2 RNA (RT-PCR) NEGATIVE (Negative) Independent Historian Clinical information obtained from an independent historian. History obtained from or confirmed by: Spouse External Record Review External record reviewed: Office record, Outpatient record and Prior outpatient labs Tests considered The following testing was considered but not selected: considered CT head Prescription Management I considered prescription management with: Pain Medication and Antiviral Critical Care Time Critical Care Time Critical Care Time: No Discharge Plan Discharge Clinical Impression: Influenza A Patient Disposition: Home, Self-Care Instructions: Influenza (DC) Additional Instructions: you tested positive for influenza A treatment is rest and supportive care - take over the counter cold/flu medications as needed for your symptoms rest and drink plenty of fluids take the prescribed fiorcet as needed for headache continue motrin as needed for headache follow up with your doctor as needed If you develop new or worsening symptoms call 911 or come back to the ER for further evaluation. Prescriptions: New eqnjdpfptt-pvbfthqezknwx-uvxq [Fioricet] 50-300-40 mg capsule 1 cap PO TID PRN (Reason: headache) Qty: 10 0RF No Action metoprolol succinate 50 mg tablet extended release 24 hr 50 mg PO DAILY Qty: 90 3RF estradiol [Estrace] 0.01 % (0.1 mg/gram) cream 1 g vaginal 2XW PRN (Reason: as directed) Referrals: Eric Sandoval MD [Primary Care Provider] - Stand Alone Forms: Work/School Release Print Language: Austrian
[2024-07-16] MEDS: Butalb/Acetamin/Caff 50/325/40 TABLET 1 TAB PO (07:13)
[2024-07-16] MEDS: Ketorolac Tromethamine 30 MG/ML VIAL IM (07:14)
[2024-07-16 08:10] VITALS: BP 128/82; PULSE 70; RESP 16; TEMP 36.8; O2SAT 97
== END 2024-07-16 08:10 | disposition home or self-care (01) ==
PROVIDERS: Emergency Provider Student in an Organized Health Care Education/Training Program; PCP Internal Medicine
DX: R51.9 Headache, unspecified (principal); J10.1 Influenza due to other identified influenza virus with other respiratory manifestations; R11.2 Nausea with vomiting, unspecified; R05.9 Cough, unspecified; R53.81 Other malaise; Z79.899 Other long term (current) drug therapy; Z03.818 Encounter for observation for suspected exposure to other biological agents ruled out
CPT/HCPCS: 0241U; 96372; 99284; J1885

== ENCOUNTER → 2024-08-03 23:59 | Outpatient (BNV) | payer OTHER, SELFPAY ==
--- NOTE | 2024-08-05 14:27 | MHC.OFFVIS ---
Intake Visit Reasons: Remote ICD check- [place] [facility] Allergies No Known Allergies Allergy (Verified 07/16/24 01:30) [facility] Medical History (Updated 07/17/24 @ 00:00 by Salome Ross) Cardiac arrest Renal calculi ICD (implantable cardioverter-defibrillator) in place Arrhythmogenic right ventricular dysplasia Asthma Osteoporosis Surgical History (Updated 02/21/24 @ 09:23 by Rosie Joaquin RN) H/O heart surgery H/O colonoscopy Hx of lithotripsy History of appendectomy Family History Father Diabetes HTN (hypertension) Social History Are you a primary child care attendant school to a significant other at home: No Do you presently have visiting nurse or other home services: No Alcohol intake: current Alcohol intake frequency: holidays/special occasions only Patient Tobacco Use Status: Never used Tobacco Smoked in Last 30 Days: No Use of substances other than those prescribed or required for medical reasons: No Advance Directives: No Advance Directives Information Provided: Yes Current occupational 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 ICD function is adequate. Nonsustained VT noted. Battery life is less than 3 months. Will follow up in the clinic in next month [id number] Cardiac Interrogation, implant defibrillator w/interim Procedure code (CPT) selection complete Assessment & Plan Assessment & Plan (1) ICD (implantable cardioverter-defibrillator) in place: Comment: 2010 Code(s): Z95.810 - Presence of automatic (implantable) cardiac defibrillator Category: Medical Plan: See above Coding Level of Care Code Procedure Only Diagnoses ICD (implantable cardioverter-defibrillator) in place Z95.810 CPT Codes Cardiac Device Check - Cardiac Device 13: [id number] Cardiac Interrogation, implant defibrillator w/interim ([id number])
== END ==
PROVIDERS: PCP Internal Medicine; Visit Provider Internal Medicine Cardiovascular Disease
DX: R00.0 Tachycardia, unspecified (principal); Z95.810 Presence of automatic (implantable) cardiac defibrillator
CPT/HCPCS: 93295

== ENCOUNTER 2024-08-18 11:32 | Outpatient (REF) | payer OTHER, SELFPAY ==
[2024-08-18 11:36] LABS: MANUAL DIFF FLAG NO
[2024-08-18 11:52] LABS: Basophils Absolute Auto 0.1 X10*3/uL (0.0-0.2); Basophils Percent Auto 0.8 % (0-2); Eosinophils Absolute Auto 0.2 X10*3/uL (0.0-0.4); Eosinophils Percent Auto 2.8 % (0-4); Hematocrit 43.7 % (37.0-47.0); Hemoglobin 14.8 g/dl (12.0-16.0); Imm Gran Abs Auto 0.03 X10*3/uL (0.00-0.03); Imm Gran Pct Auto 0.4 % (0.0-0.4); Lymphocytes Absolute Auto 2.7 X10*3/uL (1.2-4.9); Mean Corpuscular HGB Conc 33.9 g/dl (31.0-35.0); Mean Corpuscular Volume 91.6 fL (80.0-98.0); Mean Platelet Volume 10.8 fL (9.4-12.3); Monocytes Absolute Auto 0.9 X10*3/uL (0.1-1.2); Monocytes Percent Auto 12.3 % (2-11); Neutrophils Absolute Auto 3.3 x10*3/uL (2.0-8.3); Neutrophils Percent Auto 45.7 % (45-73); Platelet Count 267 X10*3/uL (160-400); Red Blood Count 4.77 X10*6/uL (4.20-5.50); Red Cell Distribution Width 12.4 % (11.0-16.0); White Blood Count 7.2 X10*3/uL (4.8-10.8)
[2024-08-18 12:22] LABS: Alanine Aminotransferase 12 U/L (0-31); Albumin Level 4.2 g/dL (3.5-5.0); Alkaline Phosphatase 73 U/L (39-117); Anion Gap 12 (12-20); Aspartate Amino Transferase 26 U/L (5-31); Bilirubin Total 0.6 mg/dL (0.0-1.0); Blood Urea Nitrogen 11 mg/dL (9-16); Calcium 9.1 mg/dL (8.4-10.2); Carbon Dioxide 28 mmol/L (22-29); Chloride 108 mmol/L (96-108); Cholesterol 174 mg/dL (<200); Estimated Glomerular Filt Rate > 60; Glucose Fasting 111 mg/dL (60-99); HDL Cholesterol 60 mg/dL (>40); LDL Cholesterol Calculated 99 mg/dL (<100); Potassium 4.6 mmol/L (3.3-5.1); Sodium 143 mmol/L (135-145); Total Protein 7.1 g/dL (6.5-8.0); Triglycerides 76 mg/dL (<150)
--- OUTSIDE RECORDS SUMMARY | 2024-08-18 12:45 | XMS_ITS ---
Author Organization [facility] Address [address] [place] [address] Care Team Providers Care Professor Of Spanish Name Role Phone Jaime MAGALLON, Eric Primary Care Provider William Diaz Unavailable [phone] BLANCA MANDUJANO Unavailable Unavailable REASON FOR VISIT screening PROBLEMS Problem Type ICD Code Onset Dates Problem Status W/U Status Risk SNOMED Code Notes Problem Diverticulosis of large intestine without perforation or abscess without bleeding (K57.30) Active confirmed Diverticul ar disease of colon (273360687) Encounters Encounter Location Date Provider Diagnosis [facility] Outpatient [address] [place] [phone] 02/21/2024 William Betancourt Colon cancer scree julia Z12.11 ; Diverticulosis of large intestine without perforation or abscess without bleeding K57.30 and Other hemorrhoids K64.8 ASSESSMENTS Encounter Date Diagnosis Assessment Notes Treatment Notes Treatment Clinical Notes 02/21/2024 Colon cancer screening (ICD-10 - Z12.11) 02/21/2024 Diverticulosis of large intestine without perforation or abscess without bleeding (ICD-10 - K57.30) 02/21/2024 Other hemorrhoids (ICD-10 - K64.8) PLAN OF TREATMENT No Information
--- OUTSIDE RECORDS SUMMARY | 2024-08-18 12:45 | XMS_ITS | Patient Health Record ---
Author Organization [facility] Address [address] [place] [address] Care Team Providers Care Elementary Assistant Teacher Name Role Phone Eric Sandoval MD Primary Care Provider William Diaz Unavailable [phone] BLANCA MANDUJANO Unavailable Unavailable ALLERGIES No Known Allergies REASON FOR REFERRAL Referring Provider First Name Eric Referring Provider Last Name Jaime Referring Provider Speciality Internal M edicine Referred Organization [facility] Referred Provider William Betancourt Referred Address [address] [facility],[place], [place],[address], Referred Provider Specialty Gastroentero logy General Notes Stephie Story 024 07:58:32 AM EDT > Call Dr. Sandoval's office to request a [facility] referral for visit with Dr. Betancourt on 11-12-2023, tSephie Story 10/24/2023 11:52:28 AM EDT > REQUESTED REFERRAL FROM Porsha BLOOD Dawn 10/24/2023 03:29:54 PM EDT > REFERRAL NUMBER GIVEN VERBALLY BY JEREMI [id number] VALID 10-24-2023 01-02-2024 FOR 6 VISITS Referral Priority Routine MEDICATIONS Medication SIG (Take, Route, Frequency, Duration) Notes Start Date End Date Status Metoprolol Succinate ER 50 MG Oral for 90 Active SOCIAL HISTORY Sex Assigned At : Social History Observation Description Sex Assigned At Unknown PROBLEMS Problem Type ICD Code Onset Dates Problem Status W/U Status Risk SNOMED Code Notes Problem Colon cancer screening (Z12.11) Active confirmed Colon can cer screening (773961456) Problem Encounter for other preprocedural examination (Z01.818) Active confirmed Pre-procedure evaluation check (341353325) Problem Diverticulosis of large intestine without perforation or abscess without bleeding (K57.30) Active confirmed Diverticul ar disease of colon (312307325) VITAL SIGNS Blood pressure diastolic 00 mm Hg 11/12/2023 Height 64 in 11/12/2023 Blood pressure systolic 00 mm Hg 11/12/2023 Weight 163 lbs 11/12/2023 BMI 27.98 kg/m2 11/12/2023 Encounters Encounter Location Date Provider Diagnosis [facility] Outpatient [address] [place], [place] [phone] 02/21/2024 William Betancourt Colon cancer screeni ng Z12.11 ; Diverticulosis of large intestine without perforation or abscess without bleeding K57.30 and Other hemorrhoids K64.8 [facility] [address] [place] [address] 11/12/2023 William Betancourt Colon cancer screeni ng Z12.11 and Encounter for other preprocedural examination Z01.818 ASSESSMENTS Encounter Date Diagnosis Assessment Notes Treatment Notes Treatment Clinical Notes 02/21/2024 Colon cancer screening (ICD-10 - Z12.11) 02/21/2024 Diverticulosis of large intestine without perforation or abscess without bleeding (ICD-10 - K57.30) 11/12/2023 Colon cancer screening (ICD-10 - Z12.11) 11/12/2023 Encounter for other preprocedural examination (ICD-10 - Z01.818) 02/21/2024 Other hemorrhoids (ICD-10 - K64.8) PLAN OF TREATMENT Future Test Test Name Order Date COLONOSCOPY 04/17/2012 COLONOSCOPY 11/12/2023 Insurance Providers Payer Name Payer Address Payer Phone Subscriber Number Group Number Insured Name Patient Relationship to Insured Coverage Start Date Coverage End Date [employer] [address] [place] CARMICHAEL [phone] [id number] HERIBERTO FOX Self - patient is the insured MEDICAL (GENERAL) HISTORY Medical History History ICD Code Cardiac arrest while exercis ing in 2010-V. fib arrest-negative cardiac cath; diagnosed with ARVD arrhythmia. Sees Dr. Real Denies [place],DM,CVA,Lung disease,renal dise ase Kidney stones-Rx'd with ESWL Negative colonoscopy in 2011 Surgical History Surgery Date(Month/Year) Implanted defibrillator 2010 appendectomy 1976
--- OUTSIDE RECORDS SUMMARY | 2024-08-18 12:45 | XMS_ITS ---
Author Organization Eric Sandoval MD Address [address] [place] [phone] Care Team Providers Care Solution Analyst Name Role Phone JaimeEric Primary Care Provider [phone] Results Component Value Reference Range Notes Complete Blood Count Auto Di ff Reviewed date:08/18/2024 12:08:27 PM Interpretation: Performing Lab:[facility], [address] [place] [phone] Notes/Report: White Blood Count 7.2 4.8-10.8 X10*3/uL Red Blood Count 4.77 4.20-5.50 X10*6/uL Hemoglobin 14.8 12.0-16.0 g/dl Hematocrit 43.7 37.0-47.0 % Mean Corpuscular Volume 91.6 80.0-98.0 fL Mean Corpuscular Hemoglobin 31.0 27.0-33.0 pg Mean Corpuscular HGB Conc 33.9 31.0-35.0 g/dl Red Cell Distribution Width 12.4 11.0-16.0 % Platelet Count 267 160-400 X10*3/uL Mean Platelet Volume 10.8 9.4-12.3 fL Neutrophils Percent Auto 45.7 45-73 % Imm Gran Pct Auto 0.4 0.0-0.4 % Lymphocytes Percent Auto 38.0 20-40 % Monocytes Percent Auto 12.3 2-11 % Eosinophils Percent Auto 2.8 0-4 % Basophils Percent Auto 0.8 0-2 % NRBC Pct Auto 0.0 0.0-0.2 /100WBC Neutrophils Absolute Auto 3.3 2.0-8.3 x10*3/u L Imm Gran Abs Auto 0.03 0.00-0.03 X10*3/uL Lymphocytes Absolute Auto 2.7 1.2-4.9 X10*3/u L Monocytes Absolute Auto 0.9 0.1-1.2 X10*3/uL Eosinophils Absolute Auto 0.2 0.0-0.4 X10*3/u L Basophils Absolute Auto 0.1 0.0-0.2 X10*3/uL NRBC Abs Auto 0.000 0.0-0.012 X10*3/uL Comprehensive Guide Rock. Panel Fa st Reviewed date:08/18/2024 12:36:03 PM Interpretation: Performing Lab:[facility], [address] [place] [phone] Notes/Report: Sodium 143 135-145 mmol/L Potassium 4.6 3.3-5.1 mmol/L Chloride 108 96-108 mmol/L Carbon Dioxide 28 22-29 mmol/L Anion Gap 12 12-20 Blood Urea Nitrogen 11 9-16 mg/dL Creatinine 0.71 0.5-1.4 mg/dL Estimated Glomerular Filt Rate > 60 Chronic Kidney Disease: Estimated GFR < 60 mL/min/1.73m2 Severe Kidney Disease: Estimated GFR < 15 mL/min/1.73m2 Glucose Fasting 111 60-99 mg/dL A fasting glucose from 100-125 mg/dl is considered impaired (pre-diabetes). Calcium 9.1 8.4-10.2 mg/dL Bilirubin Total 0.6 0.0-1.0 mg/dL Aspartate Amino Transferase 26 5-31 U/L Alanine Aminotransferase 12 0-31 U/L Total Protein 7.1 6.5-8.0 g/dL Albumin Level 4.2 3.5-5.0 g/dL Alkaline Phosphatase 73 39-117 U/L Lipid Panel Reviewed date:08/18/2024 12:36:35 PM Interpretation: Performing Lab:[facility], [address] [place] [phone] Notes/Report: Triglycerides 76 <150 mg/dL Desirable Triglyceride: less than 150 mg/dL Borderline High Triglyceride 150-199 mg/dL High Triglyceride: 200-499 mg/dL Very High Triglyceride: greater than or equal to 5OO mg/dL Cholesterol 174 <200 mg/dL Desirable Cholesterol: less than 200 mg/dL Borderline High Cholesterol: 200-239 mg/dL High Cholesterol: greater than 239 mg/dL LDL Cholesterol Calculated 99 <100 mg/dL Desirable LDL: less than 100 mg/dL Near Optimal/Above Optimal LDL: 110-129 mg/dL Borderline High LDL: 130-159 mg/dL High LDL: 160-189 mg/dL Very High LDL: greater than or equal to 190 mg/dL HDL Cholesterol 60 >40 mg/dL Desirable HDL: greater than 40 mg/dL Note: This HDL assay may give artificially low results in patients with liver disease. REASON FOR VISIT yearly fasting labs Encounters Encounter Location Date Provider Diagnosis Eric Sandoval MD [address] [place] [address] [place] [phone] 08/18/2024 Eric Sandoval Blood tests for routine general physical examination Z00.00 and Lymphocytosis D72.820 Assessments Encounter Date Diagnosis (ICD Code) Assessment Notes Treatment Notes Treatment Clinical Notes Section Notes 08/18/2024 Blood tests for routine general physical examination (ICD-10 - Z00.00) 08/18/2024 Lymphocytosis (ICD-10 - D72.820) Plan Of Treatment Pending Test Test Name Order Date UA ClnCatch+Micro w/rflx Cult 08/18/2024 Next Appt Details Provider Name:Eric reis, 08/25/2024 09:30:00 AM, [address] [facility], [address], [place], [place], [phone], Progress Notes * Elina WINSTON: 2 (63 yo F)Acc No.[id number]:08/18/2024 Progress Note Patient:Alisia CORTES Provider:?Eric Sandoval MD :1960???Age:63 Y???Sex:Female D ate:08/18/2024 Address:[address] [place] [address] [facility] Subjective: * Chief Complaints: * ???1. Yearly fasting labs. * Medical History:? Objective: * Vitals:? Assessment: * Assessment: 1.?Blood tests for routine g eneral physical examination - Z00.00 (Primary)???2.?Lymphocytosis - D72.820??? Plan: * Treatment: 2.?Lymphocytosis?LAB: UA ClnCatch+Micro w/rflx Cult ?LAB: Complete Blood Count Auto Diff (Collection Date & Time - 08/18/2024 07:30 AM) ?LAB: Comprehensive Guide Rock. Panel Fast (Collection Date & Time - 08/18/2024 07:30 AM) ?LAB: Lipid Panel (Collection Date & Time - 08/18/2024 07:30 AM) * Procedure Codes:?44877 VENIP UNCT, ROUTINE* * * The named appointment provid er may or may not be the originator of this progress note, and it is not deemed complete until electronically signed by the appointment provider. Sign off status: Pending * Provider:?Eric Sandoval MD Date:?0 08/18/2024 Generated for Gagandeep dietrich/Yaakov/eTransmitting on:?08/18/2024 12:44 PM EST
--- OUTSIDE RECORDS SUMMARY | 2024-08-18 12:45 | XMS_ITS ---
Author Organization Eric Sandoval MD Address [address] [place] [phone] Care Team Providers Care Outbound Call Center Representative Name Role Phone Eric Sandoval Primary Care Provider REASON FOR VISIT ER Encounters Encounter Location Date Provider Diagnosis Eric Sandoval MD [address] [facility] [address] [place] [phone] 07/30/2024 Eric Sandoval Plan Of Treatment Next Appt Details Provider Name:Eric Monroy ier, 08/25/2024 09:30:00 AM, [address] [facility], [address] [facility], [place], [place], [phone], Progress Notes * Alisia WINSTONDOB: 2 (63 yo F)Acc No.[id number]:07/30/2024 Patient:?Alisia WINSTON :1960???Age:63 Y???Sex:Female Address:[address] [place] [address] [place] [address] * true * Date:? Generated for Gagandeep dietrich/Yaakov/Edu on:?08/18/2024 12:45 PM EST
--- OUTSIDE RECORDS SUMMARY | 2024-08-18 12:45 | XMS_ITS ---
Author Organization [facility] Address [address] [place] [phone] Care Team Providers Care Sandblasting Supervisor Name Role Phone Jaime MAGALLON, Eric Primary Care Provider William Diaz Unavailable [phone] BLANCA MANDUJANO Unavailable Unavailable ALLERGIES No Known Allergies REASON FOR VISIT Patient presents today for a screening colonoscopy MEDICATIONS Medication SIG (Take, Route, Frequency, Duration) Notes Start Date End Date Status Metoprolol Succinate ER 50 MG Oral for 90 Active SOCIAL HISTORY Tobacco Use: Social History Observation Description Date Details (start date - stop date) Never Smoker NA - NA Sex Assigned At : Social History Observation Description Sex Assigned At Unknown Tobacco Use/Smoking Question Answer Notes Patient is a nonsmoker PROBLEMS Problem Type ICD Code Onset Dates Problem Status W/U Status Risk SNOMED Code Notes Problem Colon cancer screening (Z12.11) Active confirmed Colon cancer screening (250214518) Problem Encounter for other preprocedural examination (Z01.818) Active confirmed Pre-procedure evaluation check (627024708) VITAL SIGNS BMI 27.98 kg/m2 11/12/2023 Blood pressure systolic 00 mm Hg 11/12/19 24 Blood pressure diastolic 00 mm Hg 024 Height 64 in 11/12/2023 Weight 163 lbs 11/12/2023 Encounters Encounter Location Date Provider Diagnosis [facility] [address] [place] [address] 11/12/2023 William Betancourt Colon cancer screeni ng Z12.11 and Encounter for other preprocedural examination Z01.818 ASSESSMENTS Encounter Date Diagnosis Assessment Notes Treatment Notes Treatment Clinical Notes 11/12/2023 Colon cancer screening (ICD-10 - Z12.11) 11/12/2023 Encounter for other preprocedural examination (ICD-10 - Z01.818) PLAN OF TREATMENT Future Test Test Name Order Date COLONOSCOPY 11/12/2023 Next Appt Details Follow Up: prn, Reason: Progress Notes * Examination Category Sub-Category Detail Notes General Examination GENERAL APPEARANCE: pleasant , well nourished, well developed, in no acute distress EYES: sclera non-icteric NECK/THYROID: no cervical lymphade nopathy, neck supple HEART: S1, S2 normal LUNGS: clear to auscultatio n bilaterally ABDOMEN: normal bowel sounds, no guarding or rigidity, no hepatosplenomegaly, no masses palpable, soft, nontender, nondistended. NEUROLOGIC: alert and oriented SKIN: nonjaundiced, no spi fabio angiomata. EXTREMITIES: no edema ORAL CAVITY: mucosa moist
--- OUTSIDE RECORDS SUMMARY | 2024-08-18 12:45 | XMS_ITS | Patient Health Record ---
Author Organization Eric Sandoval MD Address [address] [place] [phone] Care Team Providers Care Outside Installation Machinist Name Role Phone Jaime Eric Primary Care Provider Allergies No Known Allergies Results Component Value Reference Range Notes Complete Blood Count Auto Di ff Reviewed date:08/18/2024 12:08:27 PM Interpretation: Performing Lab:[facility], [address] [place] [phone] Notes/Report: White Blood Count 7.2 4.8-10.8 X10*3/uL [...] 0.0-0.2 /100WBC Neutrophils Absolute Auto 3.3 2.0-8.3 x10*3/uL Imm Gran Abs Auto 0.03 0.00-0.03 X10*3/uL Lymphocytes Absolute Auto 2.7 1.2-4.9 X10*3/uL Monocytes Absolute Auto 0.9 0.1-1.2 X10*3/uL Eosinophils Absolute Auto 0.2 0.0-0.4 X10*3/uL Basophils Absolute Auto 0.1 0.0-0.2 X10*3/uL NRBC Abs Auto 0.000 0.0-0.012 X10*3/uL Comprehensive [place]. Panel Fa st Reviewed date:08/18/2024 12:36:03 PM Interpretation: Performing Lab:[facility], [address] [place] [phone] Notes/Report: Sodium 143 135-145 mmol/L Potassium 4.6 [...] Panel Reviewed date:08/18/2024 12:36:35 PM Interpretation: Performing Lab:[facility], [address] [place] [phone] Notes/Report: Triglycerides 76 <150 mg/dL Desirable Triglyceride: [...] low results in patients with liver disease. MM tomosynthesis screening B I Reviewed date:05/16/2024 07:35:44 PM Interpretation: Performing Lab: Notes/Report: [address] [place] [address] Mammography Report Signed Patient: Alisia Winston MR#: [id number] 03 : 1960 Acct:[id number] Age/Sex: 63 / F ADM Date: 05/06/24 Loc: HO.MAMMO Attending Dr: Eric Sandoval MD Ordering Physician: Eric Sandoval MD Results: 2Be nign Findings Date of Service: 05/06/24 Follow Up: 1 Year From Orig inal Mammogram Procedure(s): MM tomosynthesis screening BI Accession Number(s): [id number] cc: Eric Sandoval MD EXAMINATION: MM SCREENING DIGITAL BREAST TOMOSYNTHESIS, BILATERAL CLINICAL INFORMATION: Screening. Asymptomatic. COMPARISON: Mammography: Comparison is made with available priors TECHNIQUE: Digital breast mammography with tomosynthesis is performed in both the craniocaudal and mediolateral oblique views along with computer-aided detection (CAD). FINDINGS: The breasts are heterogeneously dense, which may obscure small masses (ACR BI-RADS breast composition Category c). Pacemaker overlies and obscures the superior posterior left breast on MLO view. There are no significant masses, abnormal calcifications, or other abnormalities. MM/MM tomosynthesis screening BI IMPRESSION: No mammographic evidence of malignancy. ASSESSMENT: BI-RADS BI-RADS 2 - Benign Findings RECOMMENDATION: Routine annual mammography screening. 1 year F/U This examination should not preclude the clinical evaluation of a suspicious palpable abnormality. This patient's information was entered into a reminder system with a target due date for their next mammogram. Electronically signed by: Goldie Hernandez DO 05/15/2024 12:59 PM EST Dictated By: Goldie Hernandez DO Signed By: <Electronically signed by Goldie Hernandez DO in OV> 05/15/24 1259 DD/ 0806 TD/TT: 05/06/24 0834 Doughnut Fryer: Marta [facility]'s [address] [place] [address] Mammography Report Signed Patient: Beni Winston MR#: [id number] 03 : 1960 Acct:[id number] Age/Sex: 63 / F ADM Date: 05/06/24 Loc: HO.MAMMO Attending Dr: Eric Sandoval MD Ordering Physician: Eric Sandoval MD Results: 2Be nign Findings Date of Service: 05/06/24 Follow Up: 1 Year From Orig ina Mammogram Procedure(s): MM tomosynthesis screening BI Accession Number(s): [id number] cc: Eric Sandoval MD EXAMINATION: MM SCREENING DIGITAL BREAST TOMOSYNTHESIS, BILATERAL CLINICAL INFORMATION: Screening. Asymptomatic. COMPARISON: Mammography: Compari son is made with available priors TECHNIQUE: Digital breast mammography with tomosynthesis is performed in both the craniocaudal and mediolateral oblique views along with computer-aided detection (CAD). FINDINGS: The breasts are heterogeneously dense, which may obscure small masses (ACR BI-RADS breast composition Category c). Pacemaker overlies a nd obscures the superior posterior left breast on MLO view. There are no significant masses, abnormal calcifications, or other abnormalities. MM/MM tomosynthesis screening BI IMPRESSION: No mammographic evidence of malignancy. ASSESSMENT: BI-RADS BI-RADS 2 - Benign Findings RECOMMENDATION: Routine annual mammography screening. 1 year F/U This examination kylah uld not preclude the clinical evaluation of a suspicious palpable abnormality. This patient's information was entered into a reminder system with a target due date for their next mammogram. Electronically boby d by: Goldie Hernandez DO 05/15/2024 12:59 PM [facility] Dictated By: Goldie Hernandez DO Signed By: <Electronically signed by Goldie Hernandez DO in OV> 05/15/24 1259 DD/ 0806 TD/TT: 05/06/24 0834 Doughnut Fryer: SARS-CoV2/FLU/RSV Reviewed date:07/16/2024 03:20:54 PM Interpretation: Performing Lab:[facility], [address] [place] [phone] Notes/Report: Influenza A PCR POSITIVE Negative Influenza B PCR NEGATIVE Negative Resp Syncy Virus RNA Qual PCR NEGATIVE Negative SARS COV2 PCR INHOUSE NEGATIVE Negative All test results must be correlated with clinical findings. Negative results do not preclude SARS-CoV2, influenza A virus, influenza B virus and/or RSV infection and should not be used as the sole basis for treatment or other patient management decisions. Negative results must be combined with clinical observations, patient history, and epidemiological information. This test has not been evaluated for monitoring treatment of infection. This test has been authorized by the FDA under an Emergency Use Authorization (EUA) for use by authorized laboratories. Testing performed on the [employer] GeneXpert utilizing real-time RT-PCR. All SARS CoV2 and positive influenza A/B results are reported to [facility]. Reason For Referral No Information Medications Medication SIG (Take, Route, Frequency, Duration) Notes Start Date End Date Status Hyoscyamine Sulfate ER 0.375 MG 1 tablet Orally every 12 hrs for 30 day(s) 05/22/2019 Not-Taking Metoprolol Succinate ER 50 Milligram TAKE ONE TABLET(S) BY MOUTH ONCE A DAY Active Flonase 50 MCG/ACT 1 spray in each nost ril Nasally Once a day for 30 day(s) 04/17/2016 Not-Taking Albuterol Sulfate HFA 108 (90 Base) MCG/ACT 1 puff as needed Inhalation every 4 hrs for 30 days 06/26/2022 Active ProAir HFA 108 (90 Base) MCG/ACT 2 puffs as needed Inhalation every 4 hrs for 30 days Not-Taking Immunizations Vaccine Route Administration Date Status Comme nts Flu Vaccine IM Intramuscular 02/22/2011 Administered Flu Vaccine IM Intramuscular 08/22/2012 Administered zFluzone Quadrivalent IM Intramuscular 05/31/2015 Administ ered Prevnar 13 IM Intramuscular 05/31/2015 Administered Fluarix Quadrivalent IM Intramuscular 05/08/2016 Administe red Fluarix Quadrivalent IM Intramuscular 05/07/2017 Administe red Fluarix Quadrivalent IM Intramuscular 05/05/2018 Administricardo red PPSV23 (Pnemovax) IM Intramuscular 05/19/2018 Administered Fluarix Quadrivalent IM Intramuscular 05/18/2019 Adminraymond red Fluarix Quadrivalent Unknown 04/11/2020 Administered At work [employer] TDaP Unknown 06/06/2020 Administered [employer] SARS-COV-2 Pfizer Unknown 10/09/2020 Administered SARS-COV-2 Pfizer Unknown 10/30/2020 Administered Fluarix Quadrivalent IM Intramuscular 06/19/2021 Adminraymond tang Social History Tobacco Use: Social History Observation Description Date Details (start date - stop date) Never Smoker NA - NA Tobacco Use/Smoking Question Answer Notes Patient is a nonsmoker Additional Findings: Tobacco Non-User Cu rrent non-smoker, currently using no form of tobacco Alcohol Screen Question Answer Notes Did you have a drink contain ing alcohol in the past year? Yes How often did you have a dri nk containing alcohol in the past year? Monthly or less (1 point) How many drinks did you have on a typical day when you were drinking in the past year? 1 or 2 drinks (0 point) How often did you have 6 or more drinks on one occasion in the past year? Never (0 point) Points 1 Interpretation Negative Problems Problem Type SNOMED Code ICD Code Onset Dates Problem Status W/U Status Risk Notes Problem 53987456 Lymphocytosis (D72.820) Active confirmed Problem 603110553 Exercise induced bronchospasm (J45.990) Active confirmed Problem 26879476 Irritable bowel syndrome without diarrhea (K58.9) Active confirmed Problem 735261879 Osteopenia (M85.80) Active confirmed Problem 530548516 History of hematuria (Z87.448) Active confirmed Problem Monocytosis (22182867) Monocytosis (D72.821) Active confirmed Problem 247466230 Migraine without aura and without status migrainosus, not intractable (G43.009) Active confirmed Problem 36055556 Allergic rhiniti s, unspecified allergic rhinitis type (J30.9) Active confirmed Problem 652500674 Right ventricula r dysplasia (Q20.8) Active confirmed Problem 163759455 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) Active confirmed Procedures Procedure Date Ordered Date Performed Result Body Sit e Colonoscopy, Screening 02/21/2024 02/21/2024 10 year repea t Encounters Encounter Location Date Provider Diagnosis Eric Sandoval MD [address] [place] [id number] 08/18/2024 Eric Sandoval Blood tests for routine general physical examination Z00.00 and Lymphocytosis D72.820 Eric Sandoval MD [address] [place] [address] [place] [id number] 10/18/2023 Eric Sandoval MD [address] [place] [address] [place] [id number] 10/24/2023 Eric Sandoval MD [address] [place] [id number] 07/30/2024 Eric Sandoval Assessments Encounter Date Diagnosis (ICD Code) Assessment Notes Treatment Notes Treatment Clinical Notes Section Notes 08/18/2024 Blood tests for routine general physical examination (ICD-10 - Z00.00) 08/18/2024 Lymphocytosis (ICD-10 - D72.820) Plan Of Treatment Pending Test Test Name Order Date UA ClnCatch+Micro w/rflx Cult 08/18/2024 Next Appt Details Provider Name:Eric reis, 08/25/2024 09:30:00 AM, [address] [place] [address], Suite [facility], [place], [place], [phone], Insurance Providers Payer Name Payer Address Payer Phone Subscriber Number Group Number Insured Name Patient Relationship to Insured Coverage Start Date Coverage End Date [facility] [id number] [place] [id number] Alisia Winston Self - patient is the insured Medical (General) History Medical History History ICD Code cardiac arrhythmia with cardiac arrest colonoscopy 05/28/2012 due in 10 years, 02/21/24 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
--- OUTSIDE RECORDS SUMMARY | 2024-08-18 12:45 | XMS_ITS ---
Author Organization Eric Sandoval MD Address [address] [place] [phone] Care Team Providers Care Loan Collector Name Role Phone Eric Sandoval Primary Care Provider REASON FOR VISIT referral Encounters Encounter Location Date Provider Diagnosis Eric Sandoval MD [address] [facility] [address] [place] [phone] 10/24/2023 Eric Sandoval Plan Of Treatment Next Appt Details Provider Name:Eric Monroy ier, 08/25/2024 09:30:00 AM, [address] [facility], [address] [place] [address], [phone], Progress Notes * Alisia WINSTONDOB: 2 (63 yo F)Acc No.[id number]:10/24/2023 Patient:?Alisia Winston :1960???Age:63 Y???Sex:Female Address:[address] [place] [address] [place] [address] * true * Date:? Generated for Gagandeep dietrich/Yaakov/Edu on:?08/18/2024 12:45 PM EST
== END 2024-08-18 11:33 | disposition home or self-care (01) ==
LOC: HO.LNP 11:32
PROVIDERS: Visit Provider Internal Medicine
DX: Z00.00 Encounter for general adult medical examination without abnormal findings (principal); D72.820 Lymphocytosis (symptomatic); Z13.220 Encounter for screening for lipoid disorders
CPT/HCPCS: 80053; 80061; 85025

== ENCOUNTER 2024-08-25 12:05 | Outpatient (REF) | payer OTHER, SELFPAY ==
[2024-08-25 12:29] LABS: Appearance Urine Clear; Color Urine Yellow; Glucose Urine UA Negative (Negative); Leukocyte Esterase Urine Negative (Negative); Nitrite Urine Negative (Negative); Specific Gravity - Urine 1.025 (1.005-1.025); Urine Blood Negative (Negative); Urine Ketones Negative (Negative); Urine Protein Negative (Neg-Trace)
[2024-08-25 12:43] LABS: Bacteria Urine None Seen (None Seen); Hyaline Casts Urine 0-2 /LPF (0-2); RBC Urine 0-2 /HPF (0-2); Squamous Epithelial Cell Urine 0-2 /HPF (0-2); WBC Urine 0-5 /HPF (0-5)
--- OUTSIDE RECORDS SUMMARY | 2024-08-25 14:46 | XMS_ITS ---
Author Organization Eric Sandoval MD Address [address] [place] [phone] Care Team Providers Care Stunt Woman Name Role Phone Eric Sandoval Primary Care Provider REASON FOR VISIT ins referral for Cardio Encounters Encounter Location Date Provider Diagnosis Eric Sandoval MD [address] [place] [address] [address] [place] [phone] 08/25/2024 Eric Sandoval Plan Of Treatment Next Appt Details Provider Name:Eric reis, 09/29/2024 10:00:00 AM, [address] [place] [address], [address], [phone], Provider Name:Eric reis, 08/24/2025 07:30:00 AM, [address] [place] [address], [address], [phone], Provider Name:Eric reis, 08/30/2025 09:30:00 AM, [address], [address], [place], [place], [phone], Progress Notes * Alisia WINSTONDOB: 2 (63 yo F)Acc No.[id number]:08/25/2024 Patient:?Lisa WINSTONhleen :1960???Age:63 Y???Sex:Female Address:[address] [place] [phone] * * Date:?
--- OUTSIDE RECORDS SUMMARY | 2024-08-25 14:46 | XMS_ITS | Patient Health Record ---
Author Organization Eric Sandoval MD Address [address] [place] [phone] Care Team Providers Care Underground Distribution Engineer Name Role Phone Jaime Eric Primary Care Provider Allergies No Known Allergies Results Component Value Reference Range Notes Complete Blood Count Auto Di ff Reviewed date:08/18/2024 12:08:27 PM Interpretation: Performing Lab:[facility], [address] [place] [phone] Notes/Report: White Blood Count 7.2 4.8-10.8 X10*3/uL [...] NRBC Abs Auto 0.000 0.0-0.012 X10*3/uL Comprehensive [place]. Panel Fa st Reviewed date:08/18/2024 12:36:03 PM Interpretation: Performing Lab:[facility], [address] [place] [phone] Notes/Report: Sodium 143 135-145 mmol/L Potassium 4.6 [...] Panel Reviewed date:08/18/2024 12:36:35 PM Interpretation: Performing Lab:[facility], [address] [place] [phone] Notes/Report: Triglycerides 76 <150 mg/dL Desirable Triglyceride: [...] low results in patients with liver disease. UA ClnCatch+Micro w/rflx Cul t (Not yet reviewed by provider) Interpretation: Performing Lab:[facility], [address] [place] [phone] Notes/Report: Urine, Clean Catch Color Urine Yellow Appearance Urine Clear PH 6.0 5.0-9.0 Glucose Urine UA Negative Negative mg/dL Urine Blood Negative Negative Specific [place] - Urine 1.025 1.005-1.025 Urine Protein Negative Neg-Trace mg/dL Urine Ketones Negative Negative mg/dL Nitrite Urine Negative Negative Leukocyte Esterase Urine Negative Negative RBC Urine 0-2 0-2 /HPF WBC Urine 0-5 0-5 /HPF Squamous Epithelial Cell Urine 0-2 0-2 /HPF Bacteria Urine None Seen None Seen Hyaline Casts Urine 0-2 0-2 /LPF MM tomosynthesis screening B I Reviewed date:05/16/2024 07:35:44 PM Interpretation: Performing Lab: Notes/Report: [facility]'s [address] [place] [address] Mammography Report Signed Patient: Alisia Winston MR#: [id number] [birth year] : 1960 Acct:[id number] Age/Sex: 63 / F ADM Date: 05/06/24 Loc: HO.MAMMO Attending Dr: Eric Sandoval MD Ordering Physician: Eric Sandoval MD Results: 2Be nign Findings Date of Service: 05/06/24 Follow Up: 1 Year From Orig ina Mammogram Procedure(s): MM tomosynthesis screening BI Accession Number(s): [id number] cc: Eric Sandoval MD EXAMINATION: MM SCREENING [...] by: Goldie Hernandez DO 05/15/2024 12:59 PM [facility] [place] Dictated By: Godlie Hernandez DO Signed By: <Electronically signed by Goldie Hernandez DO in OV> 05/15/24 1259 DD/ 0806 TD/TT: 05/06/24 0834 Broomcorn Thresher: [facility] [address] [place] [address] [place] [address] Mammography Report Signed Patient: Beni Winston MR#: [id number] 03 : 1960 Acct:[id number] Age/Sex: 63 / F ADM Date: 05/06/24 Loc: HO.MAMMO Attending Dr: Eric Sandoval MD Ordering Physician: Eric Sandoval MD Results: 2Be nign Findings Date of Service: 05/06/24 Follow Up: 1 Year From [facility] ina Mammogram Procedure(s): MM tomosynthesis screening BI Accession Number(s): [id number] cc: Eric Sandoval MD EXAMINATION: MM SCREENING [...] by: Goldie Hernandez DO 05/15/2024 12:59 PM [facility] [place] Dictated By: Goldie Hernandez DO Signed By: <Electronically signed by Goldie Hernandez DO in OV> 05/15/24 1259 DD/ 0806 TD/TT: 05/06/24 0834 Broomcorn Thresher: SARS-CoV2/FLU/RSV Reviewed date:07/16/2024 03:20:54 PM Interpretation: Performing Lab:[facility], [address] [place] [phone] Notes/Report: Influenza A PCR POSITIVE Negative Influenza [...] by authorized laboratories. Testing performed on the [employer] GeneXpert utilizing real-time RT-PCR. All SARS CoV2 and positive influenza A/B results are reported to [facility]. Reason For Referral No Information Medications Medication SIG (Take, Route, Frequency, Duration) Notes Start Date End Date Status Hyoscyamine Sulfate ER 0.375 MG 1 tablet Orally every 12 hrs for 30 day(s) 05/22/2019 Not-Taking Flonase 50 MCG/ACT 1 spray in each nost ril Nasally Once a day for 30 day(s) 04/17/2016 Not-Taking Albuterol Sulfate HFA 108 (90 Base) MCG/ACT 1 puff as needed Inhalation every 4 hrs for 30 days 06/26/2022 Active Metoprolol Succinate ER 50 Milligram TAKE ONE TABLET(S) BY MOUTH ONCE A DAY Active ProAir HFA 108 (90 Base) MCG/ACT [...] Administe red Fluarix Quadrivalent IM Intramuscular 05/05/2018 Administe red PPSV23 (Pnemovax) IM Intramuscular 05/19/2018 Administered Fluarix Quadrivalent IM Intramuscular 05/18/2019 Administe red Fluarix Quadrivalent Unknown 04/11/2020 Administered At [...] Problem Status W/U Status Risk Notes Problem 63496025 Lymphocytosis (D72.820) Active confirmed Problem 204445835 Exercise induced bronchospasm (J45.990) Active confirmed Problem 81577832 Irritable bowel syndrome without diarrhea (K58.9) Active confirmed Problem 880045939 Osteopenia (M85.80) Active confirmed Problem 956866453 History of hematuria (Z87.448) Active confirmed Problem Monocytosis (89917121) Monocytosis (D72.821) Active confirmed Problem 011705721 Migraine without aura and without status migrainosus, not intractable (G43.009) Active confirmed Problem 07790883 Allergic rhiniti s, unspecified allergic rhinitis type (J30.9) Active confirmed Problem 480585656 Right ventricula r dysplasia (Q20.8) Active confirmed Problem 295493513 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) Active confirmed Vital Signs Blood pressure diastolic 74 mm Hg 08/25/2024 tisha ght is up 5 pounds since 06-27-23 Height 64 in 08/25/2024 weight is up 5 pounds since 06-27-23 Blood pressure systolic 120 mm Hg 08/25/2024 weig ht is up 5 pounds since 06-27-23 Weight 169 lbs 08/25/2024 weight is up 5 pounds since 06-27-23 BMI 29.01 kg/m2 08/25/2024 weight is up 5 pounds since 06-27-23 Procedures Procedure Date Ordered Date Performed Result Body Sit e Colonoscopy, Screening 02/21/2024 02/21/2024 10 year repea t Encounters Encounter Location Date Provider Diagnosis Eric Sandoval MD [address] [place] [id number] 08/18/2024 Eric Sandoval Blood tests for routine general physical examination Z00.00 and Lymphocytosis D72.820 Eric Sandoval MD [address] [place] [id number] 08/25/2024 Eric Sandoval History of hematuria Z87.448 and Right ventricular dysplasia Q20.8 Eric Sandoval MD [address] [place] [id number] 08/25/2024 Eric Sandoval MD [address] [place] [id number] 10/18/2023 Eric Sandoval MD [address] [place] [id number] 10/24/2023 Eric Sandoval MD [address] [place] [id number] 07/30/2024 Eric Sandoval Assessments Encounter Date Diagnosis (ICD Code) Assessment Notes Treatment Notes Treatment Clinical Notes Section Notes 08/18/2024 Blood tests for routine general physical examination (ICD-10 - Z00.00) 08/25/2024 History of hematuria (ICD-10 - Z87.448) 08/18/2024 Lymphocytosis (ICD-10 - D72.820) 08/25/2024 Right ventricular dysplasia (ICD-10 - Q20.8) doing well with no symptom Plan Of Treatment Pending Test Test Name Order Date UA ClnCatch+Micro w/rflx Cult 08/18/2024 UA ClnCatch+Micro w/rflx Cult 08/25/2024 Next Appt Details Provider Name:Eric Monroy ier, 09/29/2024 10:00:00 AM, [address] [place] [address], [place] [address], [place], [place], [phone], Provider Name:Eric reis, 08/24/2025 07:30:00 AM, [address] [place] [address], [address], [phone], Provider Name:Eric reis, 08/30/2025 09:30:00 AM, [address], [address], [place], [phone], Insurance Providers Payer Name Payer Address Payer Phone Subscriber Number Group Number Insured Name Patient Relationship to Insured Coverage Start Date Coverage End Date [facility] [address] [place] [id number] Alisia Winston Self - patient is the insured Medical (General) History Medical History History ICD Code cardiac arrhythmia with cardiac arrest colonoscopy 05/28/2012 due in 10 years, 02/21/24 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
--- OUTSIDE RECORDS SUMMARY | 2024-08-25 14:46 | XMS_ITS ---
Author Organization Eric Sandoval MD Address [address] [place] [phone] Care Team Providers Care Writing Tutor Name Role Phone JaimeEric Primary Care Provider [phone] Allergies No Known Allergies Results Component Value Reference Range Notes UA ClnCatch+Micro w/rflx Cul t (Not yet reviewed by provider) Interpretation: Performing Lab:[facility], [address] [place] [phone] Notes/Report: Urine, Clean Catch Color Urine Yellow Appearance Urine Clear PH 6.0 5.0-9.0 Glucose Urine UA Negative Negative mg/dL Urine Blood Negative Negative Specific [place] - Urine 1.025 1.005-1.025 Urine Protein Negative Neg-Trace mg/dL Urine Ketones Negative Negative mg/dL Nitrite Urine Negative Negative Leukocyte Esterase Urine Negative Negative RBC Urine 0-2 0-2 /HPF WBC Urine 0-5 0-5 /HPF Squamous Epithelial Cell Urine 0-2 0-2 /HPF Bacteria Urine None Seen None Seen Hyaline Casts Urine 0-2 0-2 /LPF REASON FOR VISIT annual visit Medications Medication SIG (Take, Route, Frequency, Duration) [...] every 4 hrs for 30 days Not-Taking Social History Tobacco Use: Social History Observation [...] Never (0 point) Points 1 Interpretation Negative Vital Signs Blood pressure systolic 120 mm Hg 08/25/19 25 Blood pressure diastolic 74 mm Hg 025 Height 64 in 08/25/2024 Weight 169 lbs 08/25/2024 BMI 29.01 kg/m2 08/25/2024 weight is up 5 pounds since 06-27-23 Encounters Encounter Location Date Provider Diagnosis Eric Sandoval MD [address] [place] [address] [address] [place], [place] [phone] 08/25/2024 Eric Sandoval History of hematuria Z87.448 and Right ventricular dysplasia Q20.8 Assessments Encounter Date Diagnosis (ICD Code) Assessment Notes Treatment Notes Treatment Clinical Notes Section Notes 08/25/2024 History of hematuria (ICD-10 - Z87.448) 08/25/2024 Right ventricular dysplasia (ICD-10 - Q20.8) doing well with no symptom Plan Of Treatment Treatment Notes Assessment Notes Right ventricular dysplasia doing well w ith no symptom Pending Test Test Name Order Date UA ClnCatch+Micro w/rflx Cult 08/25/2024 Next Appt Details Provider Name:Eric Monroy ier, 09/29/2024 10:00:00 AM, [address], [address], [place], [place], [phone], Provider Name:Eric Monroy ier, 08/24/2025 07:30:00 AM, [address], [address], [place], [place], [phone], Provider Name:Eric Monroy ier, 08/30/2025 09:30:00 AM, [address], [address], [place], [place], [phone], Progress Notes * Alisia WINSTONDOB: 2 (63 yo F)Acc No.[id number]:08/25/2024 Progress Notes Patient:?Alisia WINSTON Provider:?Eric Sandoval MD :1960???Age:63 Y???Sex:Female D ate:08/25/2024 Address:[address] [place], [place] [phone] Subjective: * Chief Complaints: * ???1. Annual visit. * HPI: ???Depression Screening:?PHQ-9?Little interest or pleasure in doing things?Not at all,?Feeling down, depressed, or hopeless?Not at all,?Trouble falling or staying asleep, or sleeping too much?Not at all,?Feeling tired or having little energy?Not at all,?Poor appetite or overeating?Not at all,?Feeling bad about yourself or that you are a failure, or have let yourself or your family down?Not at all,?Trouble concentrating on things, such as reading the newspaper or watching television?Not at all,?Moving or speaking so slowly that other people could have noticed; or the opposite, being so fidgety or restless that you have been moving around a lot more than usual?Not at all,?Thoughts that you would be better off or of hurting yourself in some way?Not at all,?Total Score?0.?Communication Needs:?Communication Needs?Does the patient have a hearing impairment?No,?Does the patient have a vision impairment??Yes,?If yes, what is the vision impairment??Glasses,?Does the patient have a cognition impairment??No.?Fall Risk:?History?Have you had any falls with injury in the past year??No,?Have you had two or more falls in the past year??No.?SDOH Questions:?SDOH Questions?In the past year have you been worried about losing housing??No,?In the past year have you or any family members you live with been unable to get any of the following when it was really needed? Check all that apply:?None.? * ROS:?General/Constitutional:?Change in appetite?denies.?Chills?denies.?Fever?denies.?Ophthalmologic:?Blurred vision?denies.?Discharge?denies.?Pain?denies.?ENT:?Decreased hearing?denies.?Sore throat?denies.?Swollen glands?denies.?Endocrine:?Cold intolerance?denies.?Excessive thirst?denies.?Heat intolerance?denies.?Weight loss?denies.?Respiratory:?Cough?denies.?Shortness of breath at rest?denies.?Shortness of breath with exertion?denies.?Wheezing?denies.?Cardiovascular:?Chest pain at rest?denies.?Chest pain with exertion?denies.?Irregular heartbeat?denies.?Shortness of breath?denies.?Gastrointestinal:?Abdominal pain?denies.?Change in bowel habits?denies.?Diarrhea?denies.?Nausea?denies.?Rectal bleeding?denies.?Vomiting?denies .?Genitourinary:?Blood in urine?denies.?Difficulty urinating?denies.?Frequent urination?denies.?Urinary incontinence?Denies.?Musculoskeletal:?Painful joints?denies.?Weakness?denies.?Skin:?Dry skin?denies.?Itching?denies.?Denies?Mole(s),? changes in moles, new moles or any lesions of concern.?Denies?Photosensitivity.?Rash?denies.?Neurologic:?Dizziness?denies.?Fainting?denies.?Headache?denies.? 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 * Family History:?Father: dece ased 71 yrs, diagnosed with Alzheimer disease.?Mother: alive 77 yrs.?2 brother(s) . 1 son(s) , 2 daughter(s) . .? Mother-Healthy, Denies mental health/substance abuse family history, No pertinent family medical history, No pertinent family medical history, Denies mental health/substance abuse family history. * Social History:?Tobacco Use:?Tobacco Use/Smoking?Patient is a?nonsmoker,?Additional Findings: Tobacco Non-User?Current non-smoker, currently using no form of tobacco.?Drugs/Alcohol:?Alcohol Screen?Did you have a drink containing alcohol in the past year??Yes,?How often did you have a drink containing alcohol in the past year??Monthly or less (1 point),?How many drinks did you have on a typical day when you were drinking in the past year??1 or 2 drinks (0 point),?How often did you have 6 or more drinks on one occasion in the past year??Never (0 point),?Points?1,?Interpretation?Negative.?Miscellaneous:?Caffeine: no. Children: yes. Community involvements: no. Exercise: yes, yoga and meditation. Home smoke detector use: yes. Housing: owning. Living with: alone. Marital status: single. Occupation: works full-time. Pets: none. Travel outside of the [place]: yes, [place]. * Medications:?Taking Albutero l Sulfate HFA 108 (90 Base) MCG/ACT Aerosol Solution 1 puff as needed Inhalation every 4 hrs , Taking Metoprolol Succinate ER 50 Milligram Sustained Release Tablet TAKE ONE TABLET(S) BY MOUTH ONCE A DAY , Not-Taking/PRN Hyoscyamine Sulfate ER 0.375 MG Tablet Extended Release 12 Hour 1 tablet Orally every 12 hrs , Not-Taking/PRN Flonase 50 MCG/ACT Suspension 1 spray in each nostril Nasally Once a day , Not-Taking/PRN ProAir HFA 108 (90 Base) MCG/ACT Aerosol Solution 2 puffs as needed Inhalation every 4 hrs , Medication List reviewed and reconciled with the patient * Allergies:?N.K.D.A. Objective: * Vitals:?Ht: 64, Wt: 169, BMI :29.01, BP:120/74, Wt-k.66. weight is up 5 pounds since 06-27-23. * ???Past Orders: ???Lab:[facility] [place]. P silvana Fast (Order Date - 08/18/2024) (Collection Date & Time - 08/18/2024 07:30 AM) ? Value Reference Range ?Sodium 143 135-145 - mmo l/L ?Bilirubin Total 0.6 0.0- 1.0 - mg/dL ?Aspartate Amino Transferase 26 5-31 - U/L ?Alanine Aminotransferase 12 0-31 - U/L ?Total Protein 7.1 6.5-8. 0 - g/dL ?Albumin Level 4.2 3.5-5. 0 - g/dL ?Alkaline Phosphatase 73 39-117 - U/L ?Potassium 4.6 3.3-5.1 - mmol/L ?Chloride 108 96-108 - mm ol/L ?Carbon Dioxide 28 22-29 - mmol/L ?Anion Gap 12 12-20 - ?Blood Urea Nitrogen 11 9-16 - mg/dL ?Creatinine 0.71 0.5-1.4 - mg/dL ?Estimated Glomerular Filt Rate > 60 - ?Glucose Fasting 111 H 60-9 9 - mg/dL ?Calcium 9.1 8.4-10.2 - m g/dL ???Lab:Lipid Panel (Order Da te - 08/18/2024) (Collection Date & Time - 08/18/2024 07:30 AM) ? Value Reference Range ?Triglycerides 76 <150 - mg/dL ?Cholesterol 174 <200 - m g/dL ?LDL Cholesterol Calculated 99 <100 - mg/dL ?HDL Cholesterol 60 >40 - mg/dL ???Lab:Complete Blood Count Auto Diff (Order Date - 08/18/2024) (Collection Date & Time - 08/18/2024 07:30 AM) ? Value Reference Range ?White Blood Count 7.2 4. 8-10.8 - X10*3/uL ?Red Blood Count 4.77 4.20 -5.50 - X10*6/uL ?Hemoglobin 14.8 12.0-16.0 - g/dl ?Hematocrit 43.7 37.0-47.0 - % ?Mean Corpuscular Volume 91.6 80.0-98.0 - fL ?Mean Corpuscular Hemoglobin 31.0 27.0-33.0 - pg ?Mean Corpuscular HGB Conc 33.9 31.0-35.0 - g/dl ?Red Cell Distribution Width 12.4 11.0-16.0 - % ?Platelet Count 267 160-4 00 - X10*3/uL ?Mean Platelet Volume 10.8 9.4-12.3 - fL ?Neutrophils Percent Auto 45.7 45-73 - % ?Imm Gran Pct Auto 0.4 0. 0-0.4 - % ?Lymphocytes Percent Auto 38.0 20-40 - % ?Monocytes Percent Auto 12.3 H 2-11 - % ?Eosinophils Percent Auto 2.8 0-4 - % ?Basophils Percent Auto 0.8 0-2 - % ?NRBC Pct Auto 0.0 0.0-0. 2 - /100WBC ?Neutrophils Absolute Auto 3.3 2.0-8.3 - x10*3/uL ?Imm Gran Abs Auto 0.03 0. 00-0.03 - X10*3/uL ?Lymphocytes Absolute Auto 2.7 1.2-4.9 - X10*3/uL ?Monocytes Absolute Auto 0.9 0.1-1.2 - X10*3/uL ?Eosinophils Absolute Auto 0.2 0.0-0.4 - X10*3/uL ?Basophils Absolute Auto 0.1 0.0-0.2 - X10*3/uL ?NRBC Abs Auto 0.000 0.0-0. 012 - X10*3/uL * Examination: ???General Examination: ?GENERAL APPEARANCE:?well developed, well nourished, in no acute distress.?HEAD:?normocephalic, atraumatic.?EYES:?pupils equal, round, reactive to light and accommodation, sclera non-icteric.?EARS:?normal.?ORAL CAVITY:?mucosa moist.?THROAT:?clear.?NECK/THYROID:?neck supple, full range of motion, no cervical lymphadenopathy, no bruits.?SKIN:?warm and dry, no suspicious lesions.?HEART:?regular rate and rhythm, S1, S2 normal, no murmurs.?LUNGS:?clear to auscultation bilaterally.?BREASTS:?done by anchor tacker.?ABDOMEN:?soft, nontender, nondistended, bowel sounds present, normal, no organomegaly , no masses palpable.?RECTAL EXAM:?done by anchor tacker.?FEMALE GENITOURINARY:?done by anchor tacker.?EXTREMITIES:?no clubbing, cyanosis, or edema.?NEUROLOGIC:?nonfocal, motor strength normal upper and lower extremities, sensory exam intact.? Assessment: * Assessment: 1.?History of hematuria - Z8 7.448 (Primary)???2.?Right ventricular dysplasia - Q20.8??? Plan: * Treatment: 2.?Right ventricular dysplas ia? Notes: doing well with no symptom?? * * The named appointment provid er may or may not be the originator of this progress note, and it is not deemed complete until electronically signed by the appointment provider. Sign off status: Pending * Provider:?Eric Sandoval MD Date:?0 08/25/2024 Generated for Gagandeep dietrich/Yaakov/Juanitaitting on:?08/25/2024 02:46 PM EST History and Physical Notes * HPI (History of Present Illness) Category Sub-Category Detail Notes Category Not es Depression Screening PHQ-9 Little inte rest or pleasure in doing things: Not at all Feeling down, depressed, or hopeless: No t at all Trouble falling or staying asleep, or sl eeping too much: Not at all Feeling tired or having little energy: N ot at all Poor appetite or overeating: Not at all Feeling bad about yourself o r that you are a failure, or have let yourself or your family down: Not at all Trouble concentrating on thi ngs, such as reading the newspaper or watching television: Not at all Moving or speaking so slowly that other people could have noticed; or the opposite, being so fidgety or restless that you have been moving around a lot more than usual: Not at all Thoughts that you would be b maria m off or of hurting yourself in some way: Not at all Total Score: 0 SDOH Questions SDOH Questions In the past year have you been worried about losing housing?: No In the past year have you or any family members you live with been unable to get any of the following when it was really needed? Check all that apply:: None Fall Risk History Have you had any falls with injury i n the past year?: No Have you had two or more falls in the st year?: No Communication Needs Communication Needs Does the patient have a hearing impairment: No Does the patient have a vision impairmen t?: Yes ?If yes, what is the vision impairment?: Glasses Does the patient have a cognition impair ment?: No Examination Category Sub-Category Detail Notes Category Not es General Examination GENERAL APPEARANCE: well dev eloped, well nourished, in no acute distress HEAD: normocephalic, atrau matic EYES: pupils equal, round, reactive to light and accommodation, sclera non- icteric EARS: normal THROAT: clear NECK/THYROID: neck supple, full ra nge of motion, no cervical lymphadenopathy, no bruits HEART: regular rate and rhy thm, S1, S2 normal, no murmurs LUNGS: clear to auscultatio n bilaterally ABDOMEN: soft, nontender, non distended, bowel sounds present, normal, no organomegaly , no masses palpable NEUROLOGIC: nonfocal, motor stre ngth normal upper and lower extremities, sensory exam intact SKIN: warm and dry, no rd picious lesions EXTREMITIES: no clubbing, cyanosi s, or edema BREASTS: done by anchor tacker RECTAL EXAM: done by anchor tacker FEMALE GENITOURINARY: done by anchor tacker ORAL CAVITY: mucosa moist
--- OUTSIDE RECORDS SUMMARY | 2024-08-25 14:46 | XMS_ITS ---
Author Organization Eric Sandoval MD Address [address] [place] [phone] Care Team Providers Care Fur Comber Name Role Phone JaimeEric Primary Care Provider Results Component Value Reference Range Notes Complete Blood Count Auto Di ff Reviewed date:08/18/2024 12:08:27 PM Interpretation: Performing Lab:[facility], [address] [place] [phone] Notes/Report: White Blood Count 7.2 4.8-10.8 X10*3/uL [...] NRBC Abs Auto 0.000 0.0-0.012 X10*3/uL [facility]. Panel Fa st Reviewed date:08/18/2024 12:36:03 PM Interpretation: Performing Lab:[facility], [address] [place] [phone] Notes/Report: Sodium 143 135-145 mmol/L Potassium 4.6 [...] Panel Reviewed date:08/18/2024 12:36:35 PM Interpretation: Performing Lab:[facility], [address] [place] [phone] Notes/Report: Triglycerides 76 <150 mg/dL Desirable Triglyceride: [...] Location Date Provider Diagnosis Eric Sandoval MD [address] [place] [address] [place] [phone] 08/18/2024 Eric Sandoval Blood tests for routine [...] 08/18/2024 Next Appt Details Provider Name:Eric reis, 09/29/2024 10:00:00 AM, [address] [place] [address], [address], [place], [place], [phone], Provider Name:Eric reis, 08/24/2025 07:30:00 AM, [address], [address], [place], [place], [phone], Provider Name:Eric Geovanny Eliana ier, 08/30/2025 09:30:00 AM, [address], [address], [place], [place], [phone], Progress Notes * Alisia WINSTONDOB: 2 (63 yo F)Acc No.[id number]:08/18/2024 Progress Note Patient:?Alisia WINSTON Provider:?Eric Sandoval MD :1960???Age:63 Y???Sex:Female D ate:08/18/2024 Address:[address] [place] [address] Ded[address] [id number] Subjective: * Chief Complaints: * ???1. Yearly fasting labs. * Medical History:? Objective: * Vitals:? Assessment: * Assessment: 1.?Blood tests for routine g eneral physical examination - Z00.00 (Primary)???2.?Lymphocytosis - D72.820??? Plan: * Treatment: 2.?Lymphocytosis?LAB: UA ClnCatch+Micro w/rflx Cult ?LAB: Complete Blood Count Auto Diff (Collection Date & Time - 08/18/2024 07:30 AM) ?LAB: [facility] [place]. Panel Fast (Collection Date & Time - 08/18/2024 07:30 AM) ?LAB: Lipid Panel (Collection Date & Time - 08/18/2024 07:30 AM) * Procedure Codes:?91555 VENIP UNCT, ROUTINE* * * The named appointment provid er may or may not be the originator of this progress note, and it is not deemed complete until electronically signed by the appointment provider. Sign off status: Pending * Provider:?Eric Sandoval MD Date:?0 08/18/2024 Generated for Narcisoi ng/Fachetg/eTransmitting on:?08/25/2024 02:46 PM EST
== END 2024-08-25 12:06 | disposition home or self-care (01) ==
LOC: HO.LNP 12:05
PROVIDERS: Visit Provider Internal Medicine
DX: Z87.448 Personal history of other diseases of urinary system (principal)
CPT/HCPCS: 81001

== ENCOUNTER → 2024-09-14 23:59 | Outpatient (BNV) | payer OTHER, SELFPAY ==
--- NOTE | 2024-09-15 16:10 | A.OFFVIS_ITS ---
Intake Visit Reasons: Remote ICD check- [place] Scient Allergies No Known Allergies Allergy (Verified 07/16/24 01:30) [facility] Medical History (Updated 07/17/24 @ 00:00 by Salome Ross) Cardiac arrest Renal calculi ICD (implantable cardioverter-defibrillator) in place Arrhythmogenic right ventricular dysplasia Asthma Osteoporosis Surgical History (Updated 02/21/24 @ 09:23 by Rosie Joaquin RN) H/O heart surgery H/O colonoscopy Hx of lithotripsy History of appendectomy Family History Father Diabetes HTN (hypertension) Social History Are you a primary career information specialist to a significant other at home: No Do you presently have visiting nurse or other home services: No Alcohol intake: current Alcohol intake frequency: holidays/special occasions only Patient Tobacco Use Status: Never used Tobacco Current occupational 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 ICD battery has reached CINDY. Will set up for battery replacement 63255-[place] Cardiac Interrogation, implant defibrillator w/interim Procedure code (CPT) selection complete Assessment & Plan Assessment & Plan (1) ICD (implantable cardioverter-defibrillator) in place: Comment: 2010 Code(s): Z95.810 - Presence of automatic (implantable) cardiac defibrillator Category: Medical Plan: See above Coding Level of Care Code Procedure Only Diagnoses ICD (implantable cardioverter-defibrillator) in place Z95.810 CPT Codes Cardiac Device Check - Cardiac Device 13: 71735-Aselcg Cardiac Interrogation, implant defibrillator w/interim ([id number])
== END ==
PROVIDERS: PCP Internal Medicine; Visit Provider Internal Medicine Cardiovascular Disease
DX: Z45.010 Encounter for checking and testing of cardiac pacemaker pulse generator [battery] (principal)
CPT/HCPCS: 93295

== ENCOUNTER → 2024-09-29 10:21 | Outpatient (BNVA) | payer OTHER, SELFPAY | PROVIDERS: PCP Internal Medicine; Visit Provider Internal Medicine Cardiovascular Disease ==

== ENCOUNTER 2024-10-08 09:51 | Day surgery (SDC) | payer OTHER, SELFPAY ==
--- OUTSIDE RECORDS SUMMARY | 2024-09-30 16:13 | XMS_ITS ---
Author Organization Eric Sandoval MD Address [address] [place] [phone] Care Team Providers Care Certified Genetic Counselor Name Role Phone Eric Sandoval Primary Care Provider REASON FOR VISIT Cardio in referral Encounters Encounter Location Date Provider Diagnosis Eric Sandoval MD [address] [place] [address] [place] [phone] 08/25/2024 Eric Sandoval Plan Of Treatment Next Appt Details Provider Name:Eric Monroy ier, 08/24/2025 07:30:00 AM, [address] [place] [address], [address], [phone], Provider Name:Eric reis, 08/30/2025 09:30:00 AM, [address] [place] [address], [address] [place], [phone], Progress Notes * Alisia WINSTONDOB: 2 (63 yo F)Acc No.[id number]:08/25/2024 Patient:?Alisia WINSTON :1960???Age:63 Y???Sex:Female Address:[address] [place] [phone] * true * Date:? Generated for Gagandeep dietrich/Yaakov/eTransmitting on:?09/30/2024 04:13 PM EDT
--- OUTSIDE RECORDS SUMMARY | 2024-09-30 16:13 | XMS_ITS ---
Author Organization [facility] Address [address] [place] [phone] Care Team Providers Care Kiss Setter Hand Name Role Phone Jaime MAGALLON, Eric Primary Care Provider William Diaz Unavailable [phone] BLANCA MANDUJANO Unavailable Unavailable Allergies No Known Allergies REASON FOR VISIT Patient presents today for a screening colonoscopy Medications Medication SIG (Take, Route, Frequency, Duration) Notes Start Date End Date Status Metoprolol Succinate ER 50 MG Oral for 90 Active Social History Tobacco Use: Social History Observation Description Date Details (start date - stop date) Never Smoker NA - NA Tobacco Use/Smoking Question Answer Notes Patient is a nonsmoker Section Notes: Nonsmoker; occasional alcoho l Problems Problem Type SNOMED Code ICD Code Onset Dates Problem Status W/U Status Risk Notes Problem Colon cancer screening (717687467) Colon cancer screening (Z12.11) Active confirmed Problem Pre-procedure evaluation check (658062206) Encounter for other preprocedural examination (Z01.818) Active confirmed Vital Signs Blood pressure systolic 00 mm Hg 11/12/19 24 Blood pressure diastolic 00 mm Hg 024 Height 64 in 11/12/2023 Weight 163 lbs 11/12/2023 BMI 27.98 kg/m2 11/12/2023 Encounters Encounter Location Date Provider Diagnosis [facility] [address] [place] [phone] 11/12/2023 William Betancourt Colon cancer screeni ng Z12.11 and Encounter for other preprocedural examination Z01.818 Assessments Encounter Date Diagnosis (ICD Code) Assessment Notes Treatment Notes Treatment Clinical Notes Section Notes 11/12/2023 Colon cancer screening (ICD-10 - Z12.11) Overall, Heriberto appears quite well. I did recommend a followup colonoscopy for screening purposes given her last exam being over 10 years ago. We did review the rationale for that regard to colon cancer prevention. Full consent is obtained for this, including risks of bleeding and perforation. The procedure will be done with monitored anesthesia care. Heriberto was comfortable with this plan. Thank you again for allowing me to participate in Heriberto's care. I shall continue to keep you advised of her progress 11/12/2023 Encounter for other preprocedural examination (ICD-10 - Z01.818) Overall, Heriberto appears quite well. I did recommend a followup colonoscopy for screening purposes given her last exam being over 10 years ago. We did review the rationale for that regard to colon cancer prevention. Full consent is obtained for this, including risks of bleeding and perforation. The procedure will be done with monitored anesthesia care. Heriberto was comfortable with this plan. Thank you again for allowing me to participate in Heriberto's care. I shall continue to keep you advised of her progress Plan Of Treatment Future Test Test Name Order Date COLONOSCOPY 11/12/2023 Next Appt Details Follow Up: prn, Reason: Progress Notes * HERIBERTO FOXDOB: 2 (63 yo F)Acc No.[id number]:11/12/2023 Progress Notes Patient:?HERIBERTO FOX Provider:?William Betancourt MD :1960???Age:63 Y???Sex:Female D ate:11/12/2023 Address:[address] [place], [place] [id number] Pcp:Eric Sandoval MD Subjective: * Chief Complaints: * ???Patient presents today fo r a screening colonoscopy * HPI: ???incontinence:? I saw Heriberto in the office today for evaluation of colorectal cancer screening. ?I last saw Heriberto in 2011, at which time she underwent a negative screening colonoscopy. She currently feels very well. She enjoys a good appetite, without any significant heartburn or dysphagia. Her bowel movements have been regular and without any signs of bleeding. She denies any known family history of colon cancer. She denies abdominal pain, jaundice, nor unintentional weight loss. ?She describes that her cardiac status has been very stable since her defibrillator was implanted in 2010. She is followed by Dr. Real. * ROS:?General/Constitutional:?Change in appetite?denies.?Chills?denies.?Fatigue?denies.?Ophthalmologic:?Patient denies? Negative..?ENT:?Patient denies?Negative..?Respiratory:?Patient denies?No coughing/hemoptysis..?Cardiovascular:?Patient denies? No chest pain/orthopnea..?Gastrointestinal:?Comments?See HPI for details.?Genitourinary:?Patient denies? No dysuria/hematuria..?Musculoskeletal:?Patient denies? No specific arthralgias/myalgias..?Skin:?Patient denies?No rash/pruritus..?Neurologic:?Patient denies? No headaches/seizures..?Psychiatric:?Patient denies?Negative..? * Medical History:? * Surgical History:?Implanted defibrillator 2011appendectomy 1976 * Hospitalization/Major Diagno stic Procedure:?No Hospitalization History. * Family History:?Father: dece ased.?Mother: alive.? No GI malignancy. * Social History:?Tobacco Use:?Tobacco Use/Smoking?Patient is a?nonsmoker.?Drugs/Alcohol:?Alcohol Screen?Points: 2, Interpretation: Negative.?Miscellaneous:?Marital status: . 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 ???Nonsmoker; occasional alcohol. * Medications:?TakingMetoprolo l Succinate ER 50 MG Tablet Extended Release 24 Hour Oral Taking Metoprolol Succinate ER 50 MG Tablet Extended Release 24 Hour Oral DiscontinuedMoviPrep 100 GM Solution Reconstituted as directed Orally onceMedication List reviewed and reconciled with the patientDiscontinued MoviPrep 100 GM Solution Reconstituted as directed Orally onceMedication List reviewed and reconciled with the patient * Allergies:?N.K.D.A.yes[Aller gies Verified] Objective: * Vitals:?Wt: 163 lbs, Ht: 64 in, BMI:27.98 Index, BP: 00/00 mm Hg. * Examination: ???General Examination: ?GENERAL APPEARANCE:?pleasant, well nourished, well developed, in no acute distress.?EYES:?sclera non-icteric.?ORAL CAVITY:?mucosa moist.?NECK/THYROID:?no cervical lymphadenopathy, neck supple.?SKIN:?nonjaundiced, no spider angiomata..?HEART:?S1, S2 normal.?LUNGS:?clear to auscultation bilaterally.?ABDOMEN:?normal bowel sounds, no guarding or rigidity, no hepatosplenomegaly, no masses palpable, soft, nontender, nondistended..?EXTREMITIES:?no edema.?NEUROLOGIC:?alert and oriented.? Assessment: * Assessment: 1.?Encounter for other prepr ocedural examination - Z01.818 (Primary)?2.?Colon cancer screening - Z12.11? Overall, Heriberto appears qu ite well. I did recommend a followup colonoscopy for screening purposes given her last exam being over 10 years ago. We did review the rationale for that regard to colon cancer prevention. Full consent is obtained for this, including risks of bleeding and perforation. The procedure will be done with monitored anesthesia care. Heriberto was comfortable with this plan. Thank you again for allowing me to participate in Heriberto's care. I shall continue to keep you advised of her progress. Plan: * Treatment: * Procedure Codes:?3017F COLOR ECTAL CA SCREEN DOC [id number] TOBACCO NON-PHYHE3465 BP SCR NOT PRFRM REC REASON NOS * Preventive Medicine:? ??Counseling:?Care goal follow-up plan:?Above Normal BMI Follow-up?Giving encouragement to exercise,?BMI management provided?Yes.? * Follow Up:?prn * * Sign off status: Completed true * Provider:?William Betancourt MD Date:? 024 Generated for Gagandeep dietrich/Yaakov/eTransmitting on:?09/30/2024 04:13 PM EDT History and Physical Notes * HPI (History of Present Illness) Category Sub-Category Detail Notes Category Not es incontinence I saw Heriberto in the office today for evaluation of colorectal cancer screening. I last saw Heriberto in 2011, at which time she underwent a negative screening colonoscopy. She currently feels very well. She enjoys a good appetite, without any significant heartburn or dysphagia. Her bowel movements have been regular and without any signs of bleeding. She denies any known family history of colon cancer. She denies abdominal pain, jaundice, nor unintentional weight loss. She describes that her cardiac status has been very stable since her defibrillator was implanted in 2010. She is followed by Dr. Real. Examination Category Sub-Category Detail Notes Category Not es General Examination GENERAL APPEARANCE: pleasant , well [...]
--- OUTSIDE RECORDS SUMMARY | 2024-09-30 16:14 | XMS_ITS ---
Author Organization Eric Sandoval MD Address [address] [place] [phone] Care Team Providers Care Bankruptcy Attorney Name Role Phone Eric Sandoval Primary Care Provider Allergies No Known Allergies REASON FOR VISIT pre-op Dr. Hardy 10-20-2024 left cataract no lab or EKG needed Medications Medication SIG (Take, Route, Frequency, Duration) Notes Start Date End Date Status Flonase 50 MCG/ACT 1 spray in each nost ril Nasally Once a day for 30 day(s) 04/17/2016 Not-Taking Hyoscyamine Sulfate ER 0.375 MG 1 tablet Orally every 12 hrs for 30 day(s) 05/22/2019 Not-Taking Metoprolol Succinate ER 50 Milligram TAKE ONE TABLET(S) BY MOUTH ONCE A DAY Active Albuterol Sulfate HFA 108 (90 Base) MCG/ACT 1 puff as needed Inhalation every 4 hrs for 30 days 06/26/2022 Active ProAir HFA 108 (90 Base) MCG/ACT 2 puffs as needed Inhalation every 4 hrs for 30 days Not-Taking Problems Problem Type SNOMED Code ICD Code Onset Dates Problem Status W/U Status Risk Notes Problem [id number] Senile cataract, unspecified age-related cataract type, unspecified laterality (H25.9) Active confirmed Vital Signs Blood pressure systolic 142 mm Hg 09/30/19 25 Blood pressure diastolic 80 mm Hg 025 Height 64 in 09/29/2024 Weight 170 lbs 09/29/2024 BMI 29.18 kg/m2 09/29/2024 Encounters Encounter Location Date Provider Diagnosis Eric Sandoval MD [address] [place] [address] [place] [phone] 09/29/2024 Eric Sandoval Preop examination Z01.818 and Senile cataract, unspecified age-related cataract type, unspecified laterality H25.9 Assessments Encounter Date Diagnosis (ICD Code) Assessment Notes Treatment Notes Treatment Clinical Notes Section Notes 09/29/2024 Preop examination (ICD-10 - Z01.818) cleared for cataract surgery 09/29/2024 Senile cataract, unspecified age-related cataract type, unspecified laterality (ICD-10 - H25.9) Plan Of Treatment Treatment Notes Assessment Notes Preop examination cleared for cataract surgery Next Appt Details Provider Name:Eric reis, 08/24/2025 07:30:00 AM, [address] [place] [address], [address] [place] [address], [phone], Provider Name:Eric reis, 08/30/2025 09:30:00 AM, [address] [place] [address], Suite [facility], [place], [place], [phone], Progress Notes * Alisia WINSTONDOB: 2 (63 yo F)Acc No.[id number]:09/29/2024 Patient:?Alisia WINSTON Provider:?Eric Sandoval MD :1960???Age:63 Y???Sex:Female D ate:09/29/2024 Address:[address] [place] [address] [id number] Subjective: * Chief Complaints: * ???1. pre-op Dr. Hardy 4-2 left cataract no lab or EKG needed. * HPI: ???Symptom(s):? patient is a 63 yo female here for pre op visit for upcoming cataract surgery scheduled 10/20/[address] Hardy. * ROS:?General/Constitutional:?Denies?Chills.?Denies?Fatigue.?Denies?Fever.?Denies?Headache.?ENT:?Denies?Sore throat.?Respiratory:?Denies?Cough.?Denies?Shortness of breath at rest.?Denies?Shortness of breath with exertion.?Gastrointestinal:?Denies?Diarrhea.?Denies?Nausea.? * Medical History:?Cardiac arr hythmia with cardiac arrest, Colonoscopy 05/28/2012 due in 10 years, 02/21/24 colonoscopy repeat 10y, [facility] - [facility] @ [facility] [place] - 11/2013, HX of kidney stones. * Medications:?Taking Albutero l Sulfate HFA 108 [...] * Allergies:?N.K.D.A. Objective: * Vitals:?Ht: 64, Wt: 170, BMI :29.18, BP:142/80, Wt-k.11. * Examination: ???General Examination: ?GENERAL APPEARANCE:?alert, well hydrated, in no distress.?HEAD:?normocephalic.?THROAT:?pharynx normal, no exudate, no erythema.?NECK/THYROID:?no cervical lymphadenopathy.?SKIN:?good turgor.?HEART:?no murmurs, rubs, gallops, regular rate and rhythm.?LUNGS:?no wheezes, rales, rhonchi, good air movement, clear to auscultation bilaterally.?ABDOMEN:?soft, nontender, nondistended, no rebound tenderness, no organomegaly, no masses palpable.? Assessment: * Assessment: 1.?Senile cataract, unspecif ied age-related cataract type, unspecified laterality - H25.9 (Primary)???2.?Preop examination - Z01.818??? Plan: * Treatment: * * The named appointment provid er may or may not be the originator of this progress note, and it is not deemed complete until electronically signed by the appointment provider. Sign off status: Pending * Provider:?Eric Sandoval MD Date:?0 09/29/2024 Generated for Gagandeep dietrich/Yaakov/Juanitaitting on:?09/30/2024 04:13 PM EDT History and Physical Notes * HPI (History of Present Illness) Category Sub-Category Detail Notes Category Not es Symptom(s) patient is a 63 yo female here for pre op visit for upcoming cataract surgery scheduled 10/20/[address] Hardy Examination Category Sub-Category Detail Notes Category Not es General Examination GENERAL APPEARANCE: alert, w ell hydrated, in no distress HEAD: normocephalic THROAT: pharynx normal, no e xudate, no erythema NECK/THYROID: no cervical lymphade nopathy HEART: no murmurs, rubs, ga llops, regular rate and rhythm LUNGS: no wheezes, rales, r honchi, good air movement, clear to auscultation bilaterally ABDOMEN: soft, nontender, non distended, no rebound tenderness, no organomegaly, no masses palpable SKIN: good turgor
--- OUTSIDE RECORDS SUMMARY | 2024-09-30 16:14 | XMS_ITS | Patient Health Record ---
Author Organization Eric Sandoval MD Address [address] [place] [phone] Care Team Providers Care Typewriter Mechanic Name Role Phone Jaime Eric Primary Care Provider [phone] Allergies No Known Allergies Results Component Value Reference Range Notes Complete Blood Count Auto Di ff Reviewed date:08/18/2024 12:08:27 PM Interpretation: Performing Lab:[facility], [address] [place] [phone] Notes/Report: White Blood Count 7.2 4.8-10.8 X10*3/uL [...] NRBC Abs Auto 0.000 0.0-0.012 X10*3/uL Comprehensive [place]. Panel Fa st Reviewed date:08/18/2024 12:36:03 PM Interpretation: Performing Lab:[facility], [address] [place] [phone] Notes/Report: Sodium 143 135-145 mmol/L Potassium 4.6 [...] Panel Reviewed date:08/18/2024 12:36:35 PM Interpretation: Performing Lab:[facility], [address] [place] [phone] Notes/Report: Triglycerides 76 <150 mg/dL Desirable Triglyceride: [...] liver disease. UA ClnCatch+Micro w/rflx Cul t Reviewed date:08/25/2024 02:50:28 PM Interpretation: Performing Lab:[facility], [address] [place] [phone] Notes/Report: Urine, Clean Catch Color Urine Yellow Appearance Urine Clear PH 6.0 5.0-9.0 Glucose Urine UA Negative Negative mg/dL Urine Blood Negative Negative Specific [place] - Urine 1.025 1.005-1.025 Urine Protein Negative [...] date:05/16/2024 07:35:44 PM Interpretation: Performing Lab: Notes/Report: [address] [place] [address] Mammography Report Signed Patient: Alisia Winston MR#: [id number] 03 : 1960 Acct:[id number] Age/Sex: 63 / F ADM Date: 05/06/24 Loc: HO.MAMMO Attending Dr: Eric Sandoval MD Ordering Physician: Eric Sandoval MD Results: 2Be nign Findings Date of Service: 05/06/24 Follow Up: 1 Year From Orig inal Mammogram Procedure(s): MM tomosynthesis screening BI Accession Number(s): [id number] cc: Eric Sandoval MD EXAMINATION: MM SCREENING [...] by: Goldie Hernandez DO 05/15/2024 12:59 PM [facility] Dictated By: Goldie Hernandez DO Signed By: <Electronically signed by Goldie Hernandez DO in OV> 05/15/24 1259 DD/ 0806 TD/TT: 05/06/24 0834 Hooker Operator: [facility] [address] [place] [address] Mammography Report Signed Patient: Beni Winston MR#: [id number] 03 : 1960 Acct:[id number] Age/Sex: 63 / F ADM Date: 05/06/24 Loc: HO.MAMMO Attending Dr: Eric Sandoval MD Ordering Physician: Eric Sandoval MD Results: 2Be nign Findings Date of Service: 05/06/24 Follow Up: 1 Year From Orig ina Mammogram Procedure(s): MM tomosynthesis screening BI Accession Number(s): [id number] cc: Eric Sandoval MD EXAMINATION: MM SCREENING [...] by: Goldie Hernandez DO 05/15/2024 12:59 PM [facility] Dictated By: Goldie Hernandez DO Signed By: <Electronically signed by Goldie Hernandez DO in OV> 05/15/24 1259 DD/ 0806 TD/TT: 05/06/24 0834 Hooker Operator: SARS-CoV2/FLU/RSV Reviewed date:07/16/2024 03:20:54 PM Interpretation: Performing Lab:[facility], [address] [place] [phone] Notes/Report: Influenza A PCR POSITIVE Negative Influenza [...] by authorized laboratories. Testing performed on the [employer] GeneXpert utilizing real-time RT-PCR. All SARS CoV2 and positive influenza A/B results are reported to [facility]. Reason For Referral No Information Medications [...] 05/19/2018 Administered Fluarix Quadrivalent IM Intramuscular 05/18/2019 Administricardo red Fluarix Quadrivalent Unknown 04/11/2020 Administered At [...] Problem Status W/U Status Risk Notes Problem 36744662 Lymphocytosis (D72.820) Active confirmed Problem 431523517 Exercise induced bronchospasm (J45.990) Active confirmed Problem 37057251 Irritable bowel syndrome without diarrhea (K58.9) Active confirmed Problem 294470070 Osteopenia (M85.80) Active confirmed Problem 293727611 History of hematuria (Z87.448) Active confirmed Problem Monocytosis (75640245) Monocytosis (D72.821) Active confirmed Problem 746719934 Migraine without aura and without status migrainosus, not intractable (G43.009) Active confirmed Problem 90910890 Allergic rhiniti s, unspecified allergic rhinitis type (J30.9) Active confirmed Problem 759536381 Right ventricula r dysplasia (Q20.8) Active confirmed Problem 005582507 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) Active confirmed Problem 32861115 Senile cataract, unspecified age-related cataract type, unspecified laterality (H25.9) Active confirmed Vital Signs Blood pressure diastolic 80 mm Hg 09/29/2024 Height 64 in 09/29/2024 Blood pressure systolic 142 mm Hg 09/29/2024 Weight 170 lbs 09/29/2024 BMI 29.18 kg/m2 09/29/2024 Procedures Procedure Date Ordered Date Performed Result Body Sit e Colonoscopy, Screening 02/21/2024 02/21/2024 10 year repea t Encounters Encounter Location Date Provider Diagnosis Eric Sandoval MD [address] [place] [address] [place] [id number] 08/18/2024 Eric Sandoval Blood tests for routine general physical examination Z00.00 and Lymphocytosis D72.820 Eric Sandoval MD [address] [place] [id number] 09/29/2024 Eric Sandoval Preop examination Z01.818 and Senile cataract, unspecified age-related cataract type, unspecified laterality H25.9 Eric Sandoval MD [address] [place] [id number] 08/25/2024 Eric Sandoval History of hematuria Z87.448 ; Annual physical exam Z00.00 ; Right ventricular dysplasia Q20.8 ; Lymphocytosis D72.820 and Depression screening Z13.31 Eric Sandoval MD [address] [place] [id number] 10/18/2023 Eric Sandoval MD [address] [place] [id number] 10/24/2023 Eric Sandoval MD [address] [place] [id number] 07/30/2024 Eric Sandoval MD [address] [place] [id number] 08/25/2024 Eric Sandoval Assessments Encounter Date Diagnosis (ICD Code) Assessment Notes Treatment Notes Treatment Clinical Notes Section Notes 08/18/2024 Blood tests for routine general physical examination (ICD-10 - Z00.00) 09/29/2024 Preop examination (ICD-10 - Z01.818) cleared for cataract surgery 09/29/2024 Senile cataract, unspecified age-related cataract type, unspecified laterality (ICD-10 - H25.9) 08/25/2024 History of hematuria (ICD-10 - Z87.448) 08/25/2024 Annual physical exam (ICD-10 - Z00.00) labs reviewed and discussed with patient 08/18/2024 Lymphocytosis (ICD-10 - D72.820) 08/25/2024 Right ventricular dysplasia (ICD-10 - Q20.8) doing well with no symptom, will continue to monitor 08/25/2024 Lymphocytosis (ICD-10 - D72.820) resolved 08/25/2024 Depression screening (ICD-10 - Z13.31) negative screen Plan Of Treatment Pending Test Test Name Order Date UA ClnCatch+Micro w/rflx Cult 08/18/2024 Next Appt Details Provider Name:Eric Monroy ier, 08/24/2025 07:30:00 AM, [address], [address], [place], [place], [phone], Provider Name:Eric Monroy ier, 08/30/2025 09:30:00 AM, [address], [address], [place], [place], [phone], Insurance Providers Payer Name Payer Address Payer Phone Subscriber Number Group Number Insured Name Patient Relationship to Insured Coverage Start Date Coverage End Date [facility] [address] [place] [id number] Alisia Winston Self - patient is the insured Medical (General) History Medical History History ICD Code cardiac arrhythmia with cardiac arrest colonoscopy 05/28/2012 due in 10 years, 02/21/24 colonoscopy repeat 10y [employer] - [facility] @ [facility] [place] - 11/2013 HX of kidney stones
--- OUTSIDE RECORDS SUMMARY | 2024-09-30 16:14 | XMS_ITS ---
Author Organization Eric Sandoval MD Address [address] [place] [id number] Care Team Providers Care Planer Off Bearer Name Role Phone Eric Sandoval Primary Care Provider [phone] Allergies No Known Allergies Results Component Value Reference Range Notes UA ClnCatch+Micro w/rflx Cul t Reviewed date:08/25/2024 02:50:28 PM Interpretation: Performing Lab:[facility], [address] [place] [id number] Notes/Report: Urine, Clean Catch Color Urine Yellow Appearance Urine Clear PH 6.0 5.0-9.0 Glucose Urine UA Negative Negative mg/dL Urine Blood Negative Negative Specific [place] - Urine 1.025 1.005-1.025 Urine Protein Negative [...] Location Date Provider Diagnosis Eric Sandoval MD [address] [place] [address] Drive [address] [place], [place] [id number] 08/25/2024 Eric Sandoval History of hematuria Z87.448 ; Annual physical exam Z00.00 ; Right ventricular dysplasia Q20.8 ; Lymphocytosis D72.820 and Depression screening Z13.31 Assessments Encounter Date Diagnosis (ICD Code) Assessment Notes Treatment Notes Treatment Clinical Notes Section Notes 08/25/2024 History of hematuria (ICD-10 - Z87.448) 08/25/2024 Annual physical exam (ICD-10 - Z00.00) labs reviewed and discussed with patient 08/25/2024 Right ventricular dysplasia (ICD-10 - Q20.8) doing well with no symptom, will continue to monitor 08/25/2024 Lymphocytosis (ICD-10 - D72.820) resolved 08/25/2024 Depression screening (ICD-10 - Z13.31) negative screen Plan Of Treatment Treatment Notes Assessment Notes Annual physical exam labs reviewed and d iscussed with patient Right ventricular dysplasia doing well w ith no symptom, will continue to monitor Lymphocytosis resolved Depression screening negative screen Next Appt Details Provider Name:Eric reis, 08/24/2025 07:30:00 AM, [address] [place] [address], [address], [place], [phone], Provider Name:Eric reis, 08/30/2025 09:30:00 AM, [address] [place] [address], [address], [place], [place], [phone], Progress Notes * RUDDY AlisiaDOB: 2 (63 yo F)Acc No.[id number]:08/25/2024 Progress Notes Patient:?Alisia WINSTON Provider:?Eric Sandoval MD :1960???Age:63 Y???Sex:Female D ate:08/25/2024 Address:[address] [place] [address] [id number] Subjective: * Chief Complaints: * ???Annual visit * HPI: ???Depression Screening:?PHQ-9?Little interest or pleasure [...] hurting yourself in some way?Not at all,?Total Score?0.?Interpretation and Intervention?Depression Screening Findings?Negative,?Follow-Up for Depression?: review of PHQ-9 found negative result, no follow-up needed.?Communication Needs:?Communication Needs?Does the patient have a hearing [...] it was really needed? Check all that apply:?None.?Symptom(s):? patient is a 63 yo female here for annual visit with review of recent abs and follow up of chronic issues. * ROS:?General/Constitutional:?Patient denies?fatigue, headache.?Change in appetite?denies.?Chills?denies.?Fever?denies.?Ophthalmologic:?Blurred vision?denies.?Discharge?denies.?Pain?denies.?ENT:?Patient denies?decreased sense of smell, any loss of taste, sore throat.?Decreased hearing?denies.?Sore throat?denies.?Swollen glands?denies.?Endocrine:?Cold intolerance?denies.?Excessive thirst?denies.?Heat intolerance?denies.?Weight loss?denies.?Respiratory:?Cough?denies.?Shortness of breath at rest?denies.?Shortness of breath with exertion?denies.?Wheezing?denies.?Cardiovascular:?Chest pain at rest?denies.?Chest pain with exertion?denies.?Irregular heartbeat?denies.?Shortness of breath?denies.?Gastrointestinal:?Abdominal pain?denies.?Change in bowel habits?denies.?Diarrhea?denies.?Nausea?denies.?Rectal bleeding?denies.?Vomiting?denies .?Genitourinary:?Blood in urine?denies.?Difficulty urinating?denies.?Frequent urination?denies.?Urinary incontinence?Denies.?Musculoskeletal:?Patient denies?muscle aches.?Painful joints?denies.?Weakness?denies.?Peripheral Vascular:?Patient denies?red and blue toes.?Skin:?Dry skin?denies.?Itching?denies.?Denies?Mole(s),? changes in moles, new moles or any lesions of concern.?Denies?Photosensitivity.?Rash?denies.?Neurologic:?Dizziness?denies.?Fainting?denies.?Headache?denies.? * Medical History:? * Surgical History:? * Hospitalization/Major Diagno stic Procedure:? * Family History:?Father: dece ased 71 yrs, [...] Travel outside of the [place]: yes, [place]. * Medications:?TakingAlbuterol Sulfate HFA 108 (90 Base) MCG/ACT Aerosol Solution 1 puff as needed Inhalation every 4 hrs Metoprolol Succinate ER 50 Milligram Sustained Release Tablet TAKE ONE TABLET(S) BY MOUTH ONCE A DAY Taking Albuterol Sulfate HFA 108 (90 Base) MCG/ACT Aerosol Solution 1 puff as needed Inhalation every 4 hrs Taking Metoprolol Succinate ER 50 Milligram Sustained Release Tablet TAKE ONE TABLET(S) BY MOUTH ONCE A DAY Not-Taking/PRNHyoscyamine Sulfate ER 0.375 MG Tablet Extended Release 12 Hour 1 tablet Orally every 12 hrs Flonase 50 MCG/ACT Suspension 1 spray in each nostril Nasally Once a day ProAir HFA 108 (90 Base) MCG/ACT Aerosol Solution 2 puffs as needed Inhalation every 4 hrs Medication List reviewed and reconciled with the patientNot-Taking/PRN Hyoscyamine Sulfate ER 0.375 MG Tablet Extended Release 12 Hour 1 tablet Orally every 12 hrs Not-Taking/PRN Flonase 50 MCG/ACT Suspension 1 spray in each nostril Nasally Once a day Not-Taking/PRN ProAir HFA 108 (90 Base) MCG/ACT Aerosol Solution 2 puffs as needed Inhalation every 4 hrs Medication List reviewed and reconciled with the patient * Allergies:?N.K.D.A.yes[Aller gies Verified] Objective: * Vitals:?Ht: 64, Wt: 169, BMI :29.01, BP:120/74, Wt-k.66. weight is up 5 pounds since 06-27-23. * ???Past Orders: ???Lab:[facility] [place]. P silvana Fast (Order Date - 08/18/2024) [...] normal, no murmurs.?LUNGS:?clear to auscultation bilaterally.?BREASTS:?done by [employer].?ABDOMEN:?soft, nontender, nondistended, bowel sounds present, normal, no organomegaly , no masses palpable.?RECTAL EXAM:?done by [employer].?FEMALE GENITOURINARY:?done by [employer].?EXTREMITIES:?no clubbing, cyanosis, or edema.?NEUROLOGIC:?nonfocal, motor strength normal upper and lower extremities, sensory exam intact.? Assessment: * Assessment: 1.?Annual physical exam - Z0 0.00 (Primary)???2.?History of hematuria - Z87.448???3.?Right ventricular dysplasia - Q20.8???4.?Lymphocytosis - D72.820???5.?Depression screening - Z13.31??? Plan: * Treatment: 2.?History of hematuria?LAB: UA ClnCatch+Micro w/rflx Cult (Collection Date & Time - 08/25/2024 09:31 AM) 3.?Right ventricular dysplas ia? Notes: doing well with no symptom, will continue to monitor?? 4.?Lymphocytosis? Notes: resolved?? 5.?Depression screening? Notes: negative screen?? * Procedure Codes:? * * Sign off status: Completed true * Provider:?Eric Sandoval MD Date:?0 08/25/2024 Generated for Gagandeep dietrich/Yaakov/eTransmitting on:?09/30/2024 04:13 PM EDT History and Physical Notes * HPI (History of Present Illness) Category Sub-Category Detail Notes Category Not es Symptom(s) patient is a 63 yo female here for annual visit with review of recent abs and follow up of chronic issues. Depression Screening PHQ-9 Little inte rest or [...] way: Not at all Total Score: 0 Interpretation and Intervention Depression Ayla dumont Findings: Negative Follow-Up for Depression: : review of PH Q-9 found negative result, no follow-up needed SDOH Questions SDOH Questions In the past [...] had two or more falls in the year?: No Communication Needs Communication Needs Does [...] cyanosi s, or edema BREASTS: done by [employer] RECTAL EXAM: done by [employer] FEMALE GENITOURINARY: done by [employer] ORAL CAVITY: mucosa moist
--- OUTSIDE RECORDS SUMMARY | 2024-09-30 16:14 | XMS_ITS | Patient Health Record ---
Author Organization [facility] Address [address] [place] [address] Care Team Providers Care Electronic Warfare Technician Name Role Phone Eric Sandoval MD Primary Care Provider William Diaz Unavailable [phone] BLANCA MANDUJANO Unavailable Unavailable Allergies No Known Allergies Reason For Referral Referring Provider First Name Eric Referring Provider Last Name Jaime Referring Provider Speciality Internal M edicine Referred Organization [facility] Referred Provider William Betancourt Referred Address [address] [facility],[place], [place],[address], Referred Provider Specialty Gastroentero logy General Notes Stephie Story 024 07:58:32 AM EDT > Call Dr. Sandoval's office to request a blomkest pilgrim referral for visit with Dr. Betancourt on 11-12-2023, Stephie Story 10/24/2023 11:52:28 AM EDT > REQUESTED REFERRAL FROM [facility] BLOOD Dawn 10/24/2023 03:29:54 PM EDT > REFERRAL NUMBER GIVEN VERBALLY BY JEREMI [id number] VALID 10-24-2023 01-02-2024 FOR 6 VISITS Referral Priority Routine Medications Medication SIG (Take, Route, Frequency, Duration) Notes Start Date End Date Status Metoprolol Succinate ER 50 MG Oral for 90 Active Problems Problem Type SNOMED Code ICD Code Onset Dates Problem Status W/U Status Risk Notes Problem Colon cancer screening (113635198) Colon cancer screening (Z12.11) Active confirmed Problem Pre-procedure evaluation check (441574488) Encounter for other preprocedural examination (Z01.818) Active confirmed Problem Diverticular disease of colon (321240503) Diverticulosis of large intestine without perforation or abscess without bleeding (K57.30) Active confirmed Vital Signs Blood pressure diastolic 00 mm Hg 11/12/2023 Height 64 in 11/12/2023 Blood pressure systolic 00 mm Hg 11/12/2023 Weight 163 lbs 11/12/2023 BMI 27.98 kg/m2 11/12/2023 Encounters Encounter Location Date Provider Diagnosis [facility] [place] [facility] [address] [place], [place] [phone] 02/21/2024 William Betancourt Colon cancer screeni ng Z12.11 ; Diverticulosis of large intestine without perforation or abscess without bleeding K57.30 and Other hemorrhoids K64.8 [facility] [address] [place] [address] 11/12/2023 William Betancourt Colon cancer screeni ng Z12.11 and Encounter for other preprocedural examination Z01.818 Assessments Encounter Date Diagnosis (ICD Code) Assessment Notes Treatment Notes Treatment Clinical Notes Section Notes 02/21/2024 Colon cancer screening (ICD-10 - [...] to keep you advised of her progress 02/21/2024 Other hemorrhoids (ICD-10 - K64.8) Plan Of Treatment Future Test Test Name Order Date COLONOSCOPY 04/17/2012 COLONOSCOPY 11/12/2023 Insurance Providers Payer Name Payer Address Payer Phone Subscriber Number Group Number Insured Name Patient Relationship to Insured Coverage Start Date Coverage End Date [employer] [address] [place] [phone] [id number] HERIBERTO FOX Self - patient is the insured Medical (General) History Medical History History ICD Code Cardiac arrest while exercis ing in 2010-V. fib arrest-negative cardiac cath; diagnosed with ARVD arrhythmia. Sees Dr. Real Denies MT,DM,CVA,Lung disease,renal dise ase Kidney stones-Rx'd with [facility] Negative colonoscopy in 2011 Surgical History Surgery Date(Month/Year) Implanted defibrillator 2010 appendectomy 1976
--- OUTSIDE RECORDS SUMMARY | 2024-09-30 16:14 | XMS_ITS ---
Author Organization [facility] Address [address] [place] [address] Care Team Providers Care Stack Supervisor Name Role Phone Jaime MAGALLON, Eric Primary Care Provider William Diaz Unavailable [phone] BLANCA MANDUJANO Unavailable Unavailable REASON FOR VISIT screening Problems Problem Type SNOMED Code ICD Code Onset Dates Problem Status W/U Status Risk Notes Problem Diverticular disease of colon (570687986) Diverticulosis of large intestine without perforation or abscess without bleeding (K57.30) Active confirmed Encounters Encounter Location Date Provider Diagnosis [facility] [place] [address] [place], [place] [phone] 02/21/2024 William Betancourt Colon cancer scree julia Z12.11 ; Diverticulosis of large intestine without perforation or abscess without bleeding K57.30 and Other hemorrhoids K64.8 Assessments Encounter Date Diagnosis (ICD Code) Assessment Notes Treatment Notes Treatment Clinical Notes Section Notes 02/21/2024 Colon cancer screening (ICD-10 - Z12.11) 02/21/2024 Diverticulosis of large intestine without perforation or abscess without bleeding (ICD-10 - K57.30) 02/21/2024 Other hemorrhoids (ICD-10 - K64.8) Plan Of Treatment No Information Progress Notes * RUDDY HUMBERTOSOLODOB: 2 (63 yo F)Acc No.[id number]:02/21/2024 COLON WITH MAC Patient:?FOXHUMBERTOHERIBERTO Provider:?William Betancourt MD :1960???Age:63 Y???Sex:Female D ate:02/21/2024 Address:[address] [place], [place] [id number] Pcp:Eric Sandoval MD Subjective: * Chief Complaints: * ???1. Screening. * Medical History:? Objective: * Vitals:? Assessment: * Assessment: 1.?Colon cancer screening - Z12.11 (Primary)???2.?Diverticulosis of large intestine without perforation or abscess without bleeding - K57.30???3.?Other hemorrhoids - K64.8??? Plan: * Treatment: * Procedure Codes:?58092 DIAGN OSTIC COLONOSCOPY * * The named appointment provid er may or may not be the originator of this progress note, and it is not deemed complete until electronically signed by the appointment provider. Sign off status: Pending * Provider:?William Betancourt MD Date:? 024 Generated for Gagandeep dietrich/Yaakov/eTransmitting on:?09/30/2024 04:13 PM EDT
[2024-10-08] VITALS (9 sets, daily range): BP systolic 100–132; BP diastolic 58–79; PULSE 55–80; RESP 15–20; TEMP 36.5–36.7; O2SAT 95–97; BMI 29.7
[2024-10-08] MEDS: Lactated Ringers 1,000 ML 50 ML IVCONT (10:52)
--- NOTE | 2024-10-08 12:16 | P.CONAN_ITS ---
[facility] Active Problems Active Problems: All Active Problems Encounter for annual routine gynecological examination (Acute) ICD (implantable cardioverter-defibrillator) in place (Acute) Arrhythmogenic right ventricular dysplasia (Acute) Past Medical History Medical History Cardiac arrest Renal calculi ICD (implantable cardioverter-defibrillator) in place Arrhythmogenic right ventricular dysplasia Asthma Osteoporosis Functional capacity: independent ambulation Patient : No Family History Family History Father Diabetes HTN (hypertension) Family history of problems with anesthesia: No Surgical History Surgical History H/O heart surgery H/O colonoscopy Hx of lithotripsy History of appendectomy History of Problems with Anesthesia: No Social History Social History Are you a primary primary care provider to a significant other at home: No Do you presently have visiting nurse or other home services: No Alcohol intake: current Alcohol intake frequency: holidays/special occasions only Patient Tobacco Use Status: Never used Tobacco Use of substances other than those prescribed or required for medical reasons: No Are you DNR?: No Advance Directives: No Advance Directives Information Provided: Yes Current occupational 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 Sexual orientation: Straight/Heterosexual Gender identity: Female Meds Allergies Allergy/AdvReac Type Severity Reaction Status Date / Time No Known Allergies Allergy Verified 07/16/24 01:30 Active Medications: Current Medications Lactated Ringer's (Lr) 1,000 mls @ 50 mls/hr IVCONT .Q20H GYPSY Last Admin: 10/08/24 10:52 Dose: 50 mls/hr Home Medications ?Medication ?Instructions ?Recorded ?Confirmed ?Last Taken ?Type albuterol sulfate 90 mcg/actuation 2 puff inhalation Q4-6H PRN 10/08/24 10/08/24 Unknown History aerosol inhaler Shortness Of Breath metoprolol succinate 50 mg 50 mg PO BEDTIME 10/08/24 10/08/24 Unknown History tablet,extended release 24 hr Exam Height,Weight and Vital Signs: Height 5 ft 3 in Weight 76 kg Last Vital Signs Temp 98.0 F 10/08/24 10:07 Pulse 80 10/08/24 10:07 Resp 15 10/08/24 10:07 BP 132/78 10/08/24 10:07 Pulse Ox 97 10/08/24 10:07 O2 Del Method Room Air 10/08/24 10:07 Airway Mallampati Class: II TM Dist: >3cm Neck ROM: Full Heart: RRR Lungs: CTA Assessment and Plan Assessment Anesthesia Assessment: Anesthesia Plan Discussed Final Anesthetic Review Family History of Problems with Anesthesia: No History of Problems with Anesthesia: No NPO: Yes ASA Class: II Final Preanesthetic Review: Meds/Allgs Chart Reviewed, Consent Obtained/Reviewed and Anes Risks/Benef Reviewed Patient Risk: Intermediate Procedure Risk: Low Anesthetic Plan Anesthetic Plan: MAC: Disposition: Standard PACU
--- NOTE | 2024-10-08 13:51 | W.PM.OPN ---
Operative Note Operative Note Date of Service: 10/08/24 Narrative: Procedure Indication: 1. Single chamber ICD generator CINDY 2. History of cardiac arrest 3. ARVC Procedure Performed: 1. Generator replacement of single chamber [employer] ICD (CPT 54900) 2. Pocket revision of ICD (CPT 05370-73) 3. Programming of single chamber ICD (CPT 33971) Procedure Narrative: The patient presented to the EP lab in a fasting, nonsedated state after writen informed consent was verified. A timeout was called at the beginning of the procedure. 2g of IV Ancef was initiated. The left chest region was prepped and draped in the usual sterile manner. A 1-inch incision was made medial and inferior to the left deltopectoral groove, above the ICD generator. Extensive electrocautery and dissection had to be performed to expose the ICD generator. Capsulectomy was performed due to to significant amounts of fibrosis and calcification surrounding the generator and the leads. The leads were detached from the existing generator. The leads were inserted into the new ICD generator and secured into the header via the provided screw tool. A gentle tug test was performed on the leads to ensure optimal insertion of the leads into the generator. ICD generator parameters were checked to be within the desirable range. The pocket was flushed with an antibiotic irrigant. The ICD system was placed inside the pocket and relocated more caudally within the pocket. The pocket was closed in 3 layers: 2-0 Vicyl running followed by 4-0 V-Loc. Exofin was applied over the incision site. A gauze and Tegaderm dressing were applied over the incision site. The patient was then transported back to recovery in a stable condition. Recommendations: 1. Keep incision site dry for 7 days. 2. Follow up in EP clinic in 7-10 days for incision site check. 3. Follow up with Dr. Real as scheduled.
== END 2024-10-08 15:05 | disposition home or self-care (01) ==
PROVIDERS: PCP Internal Medicine; Visit Provider Student in an Organized Health Care Education/Training Program
PROC: 0JPT0PZ Removal of Cardiac Rhythm Related Device from Trunk Subcutaneous Tissue and Fascia, Open Approach (ICD-10-PCS; CPT 33262; principal; 2024-10-08 12:00)
DX: Z45.02 Encounter for adjustment and management of automatic implantable cardiac defibrillator (principal); I42.8 Other cardiomyopathies; Z86.74 Personal history of sudden cardiac arrest; J45.909 Unspecified asthma, uncomplicated; N20.0 Calculus of kidney; M81.0 Age-related osteoporosis without current pathological fracture; Z79.899 Other long term (current) drug therapy; Z98.890 Other specified postprocedural states
CPT/HCPCS: 33262; C1785; C1889; J0690; J1100; J2003; J2250; J2704; J3010; J3370; Q9967

== ENCOUNTER → 2024-11-02 23:59 | Outpatient (BNV) | payer OTHER, SELFPAY ==
--- NOTE | 2024-11-03 10:29 | MHC.OFFVIS ---
Intake Visit Reasons: Remote ICD check- [employer] Allergies No Known Allergies Allergy (Verified 07/16/24 01:30) PFSH Medical History Cardiac arrest Renal calculi ICD (implantable cardioverter-defibrillator) in place Arrhythmogenic right ventricular dysplasia Asthma Osteoporosis Surgical History H/O heart surgery H/O colonoscopy Hx of lithotripsy History of appendectomy Family History Father Diabetes HTN (hypertension) Social History Are you a primary customer care associate to a significant other at home: No Do you presently have visiting nurse or other home services: No Alcohol intake: current Alcohol intake frequency: holidays/special occasions only Comment: counts correct Patient Tobacco Use Status: Never used Tobacco Use of substances other than those prescribed or required for medical reasons: No Are you DNR?: No Advance Directives: No Advance Directives Information Provided: Yes Patient : No Current occupational 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 ICD function is adequate [id number] Cardiac Interrogation, implant defibrillator w/interim Procedure code (CPT) selection complete Assessment & Plan Assessment & Plan (1) ICD (implantable cardioverter-defibrillator) in place: Comment: 2010 Code(s): Z95.810 - Presence of automatic (implantable) cardiac defibrillator Category: Medical Plan: See above Coding Level of Care Code Procedure Only Diagnoses ICD (implantable cardioverter-defibrillator) in place Z95.810 CPT Codes Cardiac Device Check - Cardiac Device 13: [id number] Cardiac Interrogation, implant defibrillator w/interim ([id number])
== END ==
PROVIDERS: PCP Internal Medicine; Visit Provider Internal Medicine Cardiovascular Disease
DX: Z45.02 Encounter for adjustment and management of automatic implantable cardiac defibrillator (principal)
CPT/HCPCS: 93295

== ENCOUNTER → 2024-11-04 07:54 | Outpatient (REF) | payer OTHER, SELFPAY ==
--- NOTE | 2024-11-04 07:57 | CA_ITS ---
Transthoracic Echocardiogram Patient (Last, First, Middle): Alisia Winston, Gender: Female Date of : 1960 Age: 64 Procedure Date: 11/04/2024 Procedure Type: Transthoracic Echocardiogram Location: OP Height: 160.02 cm Weight: 74.84 kg BSA: 1.78 m2 Heart Rate: bpm BP: 108 / 70 mmHg Insurance Sales Associate: TO Referring MD: Arnol Real MD Symptoms: I42.8 - Other cardiomyopathies Study Quality: Fair/Contrast Conclusions: - The left ventricular systolic function is normal. The calculated ejection fraction is 57% by biplane method. - Mildly increased right ventricular cavity size. There is low normal right ventricular systolic function. - No obvious valvular pathology seen on this study. Findings Procedure Information Contrast agent, definity, is being given per protocol without apparent complications. The study quality is limited by patients body habitus. Left Ventricle Normal left ventricular cavity size. The left ventricular systolic function is normal. The calculated ejection fraction is 57% by biplane method. There is no evidence of regional wall motion abnormalities. Evidence suggests grade I (mild) diastolic dysfunction. There is mild septal asymmetric hypertrophy. Right Ventricle Mildly increased right ventricular cavity size. There is low normal right ventricular systolic function. There is an ICD wire seen in the right ventricle. Atria The left atrium is moderately dilated. The right atrium is normal in size. Aortic Valve There is a normal trileaflet aortic valve. There is no aortic valve stenosis. There is no aortic valve regurgitation. Mitral Valve The mitral valve appears normal. There is no mitral valve regurgitation. There is no mitral valve stenosis. Pulmonic Valve The pulmonic valve is likely normal. Tricuspid Valve There is mild tricuspid valve regurgitation. There is no evidence of pulmonary hypertension. Great Vessels The asc aorta is normal in size. Venous The inferior vena cava is normal in size and collapses greater than 50% with inspiration. Pericardium/Pleural There is no evidence of pericardial effusion. Prior Study Comparison No significant change compared to prior study dated: 11/22/2022. Recommendations, Care & Conclusions No obvious valvular pathology seen on this study. Measurements 2D Linear Measurements IVSd: 1.07 0.6-0.9/0.6-1.0 cm LVIDd: 5.22 3.9-5.3/4.2-5.9 cm LVIDd Index: 2.93 2.4-3.2/2.2-3.1 cm/m2 LVIDs: 3.57 2.0-3.6 cm LVPWd: 0.74 0.7-1.1 cm LA Diam: 3.90 2.7-3.8/3.0-4.0 cm LAIDs Index: 2.19 1.5-2.3 cm/m2 LV Mass: 213.86 67-162/88-224 g LV Mass Index: 120.15 43-95/49-115 g/m2 LVOT Diam: 2.10 3.0+(-)1.3 cm 2D Systolic Function EF 4C: 52.50 >55% EF 2C: 59.60 >55% EF BiP: 57.20 >55% Mitral Valve MV Pk E: 0.42 MV PK A: 0.52 MV Decel Time: 231.00 E/A: 0.80 E'Lateral: 7.62 E'Medial: 4.35 E/E' Med: 9.60 E/E' Lat: 5.50 PHT: 68.00 MVA PHT: 3.24 Decel Calloway: 1.80 Aortic Valve AoV Pk Jalen: 1.13 AoV Mn Jalen: 0.78 AoV VTI: 0.26 AoV Pk Grad: 5.00 Aov Mn Grad: 3.00 SASCHA Cont.VTI: 2.76 LVOT LVOT Pk Jalen: 0.86 LVOT Mn Jalen: 0.57 LVOT VTI: 0.21 LVOT Pk Grad: 3.00 LVOT Mn Grad: 2.00 LVOT Diam: 2.10 LVOT Area: 3.46 Diastolic Function MV Pk E: 0.42 MV Pk A: 0.52 E/A: 0.80 E'Medial: 4.35 E/E' Med: 9.60 E' Laterial: 7.62 E/E' Lat: 5.50 Right Ventricle TAPSE (mm): 17.50 TVS' Jalen: 10.80 Tricuspid Valve TR Pk Jalen: 2.28 TR Pk Grad: 21.00 RA Press: 8.00 RVSP: 29.00 Great Vessels Aorta Sinus of Valsalva: 3.42 2.0-3.5 cm Ao Asc: 3.20 2.1-3.4 cm Updated in Other Vendor System with Status of Final Rodney Peres MD electronically signed on 11/06/2024 12:50:11 PM with status of Final
--- OUTSIDE RECORDS SUMMARY | 2024-11-04 07:57 | XMS_ITS ---
Author Organization Eric Sandoval MD Address [address] [place] [phone] Care Team Providers Care Coke Wheeler Name Role Phone Eric Sandoval Primary Care Provider [phone] REASON FOR VISIT Cardio in referral Encounters Encounter Location Date Provider Diagnosis Eric Sandoval MD [address] [place] [address] [place] [phone] 08/25/2024 Eric Sandoval Plan Of Treatment Next Appt Details Provider Name:Eric Monroy ier, 08/24/2025 07:30:00 AM, [address] [place] [address], [address], [phone], Provider Name:Eric reis, 08/30/2025 09:30:00 AM, [address] [place] [address], [address] [place], [phone], Progress Notes * Alisia WINSTONDOB: 2 (63 yo F)Acc No.[id number]:08/25/2024 Patient:?Alisia WINSTON :1960???Age:63 Y???Sex:Female Address:[address] [place] [phone] * true * Date:? Generated for Gagandeep dietrich/Yaakov/eTransmitting on:?11/04/2024 07:57 AM EDT
--- OUTSIDE RECORDS SUMMARY | 2024-11-04 07:58 | XMS_ITS ---
Author Organization [facility] Address [address] [place] [phone] Care Team Providers Care Drafter Refrigeration Name Role Phone Jaime MAGALLON, Eric Primary Care Provider William Diaz Unavailable [phone] BLANCA MANDUJANO Unavailable Unavailable Allergies No Known [...] Status Risk Notes Problem Colon cancer screening (276346614) Colon cancer screening (Z12.11) Active confirmed Problem Pre-procedure evaluation check (881241595) Encounter for other preprocedural examination (Z01.818) Active confirmed Vital Signs Blood pressure systolic 00 mm Hg 11/12/19 24 Blood pressure diastolic 00 mm Hg 024 Height 64 in 11/12/2023 Weight 163 lbs 11/12/2023 BMI 27.98 kg/m2 11/12/2023 Encounters Encounter Location Date Provider Diagnosis [facility] [address] [place] [phone] 11/12/2023 William Betancourt Colon cancer screeni ng [...] * HERIBERTO FOXDOB: 2 (63 yo F)Acc No.[id number]:11/12/2023 Progress Notes Patient:?HERIBERTO FOX Provider:?William Betancourt MD :1960???Age:63 Y???Sex:Female D ate:11/12/2023 Address:[address] [place], [place] [phone] Pcp:rEic Sandoval MD Subjective: * Chief Complaints: * [...] Screen?Points: 2, Interpretation: Negative.?Miscellaneous:?Marital status: . 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 ???Nonsmoker; occasional alcohol. * Medications:?TakingMetoprolo l [...] Procedure Codes:?3017F COLOR ECTAL CA SCREEN DOC [id number] TOBACCO NON-[id number] BP SCR NOT PRFRM REC REASON NOS * Preventive Medicine:? ??Counseling:?Care goal follow-up plan:?Above Normal BMI Follow-up?Giving encouragement to exercise,?BMI management provided?Yes.? * Follow Up:?prn * * Sign off status: Completed true * Provider:?William Betancourt MD Date:? 024 Generated for Gagandeep dietrich/Yaakov/eTransmitting on:?11/04/2024 07:57 AM EDT History and Physical Notes * HPI [...]
--- OUTSIDE RECORDS SUMMARY | 2024-11-04 07:58 | XMS_ITS ---
Author Organization Eric Sandoval MD Address [address] [place] [phone] Care Team Providers Care Manager Special Events Name Role Phone Eric Sandoval Primary Care Provider Allergies No Known Allergies Results Component Value Reference Range Notes UA ClnCatch+Micro w/rflx Cul t Reviewed date:08/25/2024 02:50:28 PM Interpretation: Performing Lab:[facility], [address] [place] [phone] Notes/Report: Urine, Clean Catch Color Urine Yellow Appearance Urine Clear PH 6.0 5.0-9.0 Glucose Urine UA Negative Negative mg/dL Urine Blood Negative Negative Specific [place] - Urine 1.025 1.005-1.025 Urine Protein Negative [...] Location Date Provider Diagnosis Eric Sandoval MD [address] [place] [address] Drive [address] [place], [place] [phone] 08/25/2024 Eric Sandoval History of hematuria Z87.448 [...] Details Provider Name:Eric reis, 08/24/2025 07:30:00 AM, [address] [place] [address], [address], [place], [phone], Provider Name:Eric reis, 08/30/2025 09:30:00 AM, [address] [place] [address], [address], [place], [place], [phone], Progress Notes * RUDDY AlisiaDOB: 2 (63 yo F)Acc No.[id number]:08/25/2024 Progress Notes Patient:?Alisia WINSTON Provider:?Eric Sandoval MD :1960???Age:63 Y???Sex:Female D ate:08/25/2024 Address:[address] [place] [address] [id number] Subjective: * Chief Complaints: * ???Annual visit [...] Travel outside of the [place]: yes, Arthur. * Medications:?TakingAlbuterol Sulfate HFA 108 (90 Base) [...] pounds since 06-27-23. * ???Past Orders: ???Lab:[facility] [place]. P silvana Fast (Order Date - 08/18/2024) [...] normal, no murmurs.?LUNGS:?clear to auscultation bilaterally.?BREASTS:?done by theatrical performer.?ABDOMEN:?soft, nontender, nondistended, bowel sounds present, normal, no organomegaly , no masses palpable.?RECTAL EXAM:?done by theatrical performer.?FEMALE GENITOURINARY:?done by theatrical performer.?EXTREMITIES:?no clubbing, cyanosis, or edema.?NEUROLOGIC:?nonfocal, motor strength normal [...] MD Date:?0 08/25/2024 Generated for Gagandeep dietrich/Yaakov/eTransmitting on:?11/04/2024 07:58 AM EDT History and Physical Notes * [...] cyanosi s, or edema BREASTS: done by theatrical performer RECTAL EXAM: done by theatrical performer FEMALE GENITOURINARY: done by theatrical performer ORAL CAVITY: mucosa moist
--- OUTSIDE RECORDS SUMMARY | 2024-11-04 07:58 | XMS_ITS | Patient Health Record ---
Author Organization Eric Sandoval MD Address [address] [place] [phone] Care Team Providers Care Tobacco Primer Machine Operator Name Role Phone Jaime Eric Primary Care Provider Allergies No Known Allergies Results Component Value Reference Range Notes Complete Blood Count Auto Di ff Reviewed date:08/18/2024 12:08:27 PM Interpretation: Performing Lab:[facility], [address] [place] [phone] Notes/Report: White Blood Count 7.2 4.8-10.8 X10*3/uL [...] NRBC Abs Auto 0.000 0.0-0.012 X10*3/uL Comprehensive [place]. Panel Fa st Reviewed date:08/18/2024 12:36:03 PM Interpretation: Performing Lab:[facility], [address] [place] [phone] Notes/Report: Sodium 143 135-145 mmol/L Potassium 4.6 [...] Interpretation: Performing Lab:[facility], [address] [place] [phone] Notes/Report: Triglycerides 76 <150 mg/dL Desirable Triglyceride: [...] t Reviewed date:08/25/2024 02:50:28 PM Interpretation: Performing Lab:[facility], [address] [place] [phone] Notes/Report: Urine, Clean Catch Color Urine Yellow Appearance Urine Clear PH 6.0 5.0-9.0 Glucose Urine UA Negative Negative mg/dL Urine Blood Negative Negative Specific [place] - Urine 1.025 1.005-1.025 Urine Protein Negative [...] date:05/16/2024 07:35:44 PM Interpretation: Performing Lab: Notes/Report: [address] [place] [address] Mammography Report Signed Patient: Alisia Winston MR#: [id number] 03 : 1960 Acct:[id number] Age/Sex: 63 / F ADM Date: 05/06/24 Loc: HO.MAMMO Attending Dr: Eric Sandoval MD Ordering Physician: Eric Sandoval MD Results: 2Be nign Findings Date of Service: 05/06/24 Follow Up: 1 Year From Orig inal Mammogram Procedure(s): MM tomosynthesis screening BI Accession Number(s): [id number] cc: Eric Sandoval MD EXAMINATION: MM SCREENING [...] by: Goldie Hernandez DO 05/15/2024 12:59 PM [facility] Dictated By: Goldie Hernandez DO Signed By: <Electronically signed by Goldie Hernandez DO in OV> 05/15/24 1259 DD/ 0806 TD/TT: 05/06/24 0834 Mineralogy Professor: [facility] [address] [place] [address] Mammography Report Signed Patient: Beni Winston MR#: [id number] 03 : 1960 Acct:[id number] Age/Sex: 63 / F ADM Date: 05/06/24 Loc: HO.MAMMO Attending Dr: Eric Sandoval MD Ordering Physician: Eric Sandoval MD Results: 2Be nign Findings Date of Service: 05/06/24 Follow Up: 1 Year From Orig ina Mammogram Procedure(s): MM tomosynthesis screening BI Accession Number(s): [id number] cc: Eric Sandoval MD EXAMINATION: MM SCREENING [...] by: Goldie Hernandez DO 05/15/2024 12:59 PM [facility] Dictated By: Goldie Hernandez DO Signed By: <Electronically signed by Goldie Hernandez DO in OV> 05/15/24 1259 DD/ 0806 TD/TT: 05/06/24 0834 Mineralogy Professor: SARS-CoV2/FLU/RSV Reviewed date:07/16/2024 03:20:54 PM Interpretation: Performing Lab:[facility], [address] [place] [phone] Notes/Report: Influenza A PCR POSITIVE Negative Influenza [...] by authorized laboratories. Testing performed on the [employer] GeneXpert utilizing real-time RT-PCR. All SARS CoV2 and positive influenza A/B results are reported to [facility]. Reason For Referral No Information Medications [...] Problem Status W/U Status Risk Notes Problem 64231849 Lymphocytosis (D72.820) Active confirmed Problem 303864679 Exercise induced bronchospasm (J45.990) Active confirmed Problem 21026351 Irritable bowel syndrome without diarrhea (K58.9) Active confirmed Problem 963480294 Osteopenia (M85.80) Active confirmed Problem 229090221 History of hematuria (Z87.448) Active confirmed Problem Monocytosis (96509824) Monocytosis (D72.821) Active confirmed Problem 764238023 Migraine without aura and without status migrainosus, not intractable (G43.009) Active confirmed Problem 73298289 Allergic rhiniti s, unspecified allergic rhinitis type (J30.9) Active confirmed Problem 254829931 Right ventricula r dysplasia (Q20.8) Active confirmed Problem 463353559 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) Active confirmed Problem 27305080 Senile cataract, unspecified age-related cataract type, unspecified [...] Location Date Provider Diagnosis Eric Sandoval MD [address] [place] [address] [place] [phone] 08/18/2024 Eric Sandoval Blood tests for routine general physical examination Z00.00 and Lymphocytosis D72.820 Eric Sandoval MD [address] [place] [address] [place] [phone] 08/25/2024 Eric Sandoval History of hematuria Z87.448 ; Annual physical exam Z00.00 ; Right ventricular dysplasia Q20.8 ; Lymphocytosis D72.820 and Depression screening Z13.31 Eric Sandoval MD [address] [place] [phone] 09/29/2024 Eric Sandoval Preop examination Z01.818 and Senile cataract, unspecified age-related cataract type, unspecified laterality H25.9 Eric Sandoval MD [address] [place] [phone] 07/30/2024 Eric Sandoval MD [address] [place] [phone] 08/25/2024 Eric Sandoval Assessments Encounter Date Diagnosis (ICD Code) Assessment Notes Treatment Notes Treatment Clinical Notes Section Notes 08/18/2024 Blood tests for routine general physical examination (ICD-10 - Z00.00) 08/25/2024 History of hematuria (ICD-10 - Z87.448) 08/25/2024 Annual physical exam (ICD-10 - Z00.00) labs reviewed and discussed with patient 09/29/2024 Preop examination (ICD-10 - Z01.818) cleared for cataract surgery 09/29/2024 Senile cataract, unspecified age-related cataract type, unspecified laterality (ICD-10 - H25.9) 08/18/2024 Lymphocytosis (ICD-10 - D72.820) 08/25/2024 Right ventricular dysplasia (ICD-10 - Q20.8) doing well with no symptom, will continue to monitor 08/25/2024 Lymphocytosis (ICD-10 - D72.820) resolved 08/25/2024 Depression screening (ICD-10 - Z13.31) negative screen Plan Of Treatment Pending Test Test Name Order Date UA ClnCatch+Micro w/rflx Cult 08/18/2024 Next Appt Details Provider Name:Eric reis, 08/24/2025 07:30:00 AM, [address], [address], [place], [place], [phone], Provider Name:Eric vázquezr, 08/30/2025 09:30:00 AM, [address], [address], [place], [phone], Insurance Providers Payer Name Payer Address Payer Phone Subscriber Number Group Number Insured Name Patient Relationship to Insured Coverage Start Date Coverage End Date [facility] [address] [place] [id number] Alisia Winston Self - patient is the insured Medical (General) History Medical History History ICD Code cardiac arrhythmia with cardiac arrest colonoscopy 05/28/2012 due in 10 years, 02/21/24 colonoscopy repeat 10y DIRECTOR NEW PRODUCT - [place] [facility] @ [facility] - 11/2013 HX of kidney stones
--- OUTSIDE RECORDS SUMMARY | 2024-11-04 07:58 | XMS_ITS ---
Author Organization [facility] Address [address] [place] [address] Care Team Providers Care Chemical Economist Name Role Phone Jaime MAGALLON, Eric Primary Care Provider William Diaz Unavailable [phone] BLANCA MANDUJANO Unavailable Unavailable REASON FOR VISIT screening Problems Problem Type SNOMED Code ICD Code Onset Dates Problem Status W/U Status Risk Notes Problem Diverticulosis o f large intestine without perforation or abscess without bleeding (K57.30) Active confirmed Encounters Encounter Location Date Provider Diagnosis [facility] [address] [place], [place] [phone] 02/21/2024 William Betancourt Colon cancer scree julia [...] Of Treatment No Information Progress Notes * HERIBERTO FOXDOB: 2 (64 yo F)Acc No.[id number]:02/21/2024 COLON WITH MAC Patient:?NAZANIN FOXEEN Provider:?William Betancourt MD :1960???Age:63 Y???Sex:Female D ate:02/21/2024 Address:[address] [place], [place] [address]P[place]on [facility] Pcp:Eric Sandoval MD Subjective: * Chief Complaints: * ???1. Screening. * Medical History:? Objective: * Vitals:? Assessment: * Assessment: 1.?Colon cancer screening - Z12.11 (Primary)???2.?Diverticulosis of large intestine without perforation or abscess without bleeding - K57.30???3.?Other hemorrhoids - K64.8??? Plan: * Treatment: * Procedure Codes:?75777 DIAGN OSTIC COLONOSCOPY * * The named appointment provid er may or may not be the originator of this progress note, and it is not deemed complete until electronically signed by the appointment provider. Sign off status: Pending * Provider:?William Betancourt MD Date:? 024 Generated for Gagandeep dietrich/Yaakov/Juanitaitting on:?11/04/2024 07:58 AM EDT
--- OUTSIDE RECORDS SUMMARY | 2024-11-04 07:58 | XMS_ITS ---
Author Organization Eric Sandoval MD Address [address] [place] [phone] Care Team Providers Care Outbound Sales Specialist Name Role Phone Eric Sandoval Primary Care [...] Problem Status W/U Status Risk Notes Problem 97406813 Senile cataract, unspecified age-related cataract type, unspecified laterality (H25.9) Active confirmed Vital Signs Blood pressure systolic 142 mm Hg 09/30/19 25 Blood pressure diastolic 80 mm Hg 025 Height 64 in 09/29/2024 Weight 170 lbs 09/29/2024 BMI 29.18 kg/m2 09/29/2024 Encounters Encounter Location Date Provider Diagnosis Eric Sandoval MD [address] [place] [address] [place] [phone] 09/29/2024 Eric Sandoval Preop examination Z01.818 and [...] Details Provider Name:Eric reis, 08/24/2025 07:30:00 AM, [address] [place] [address], [address] [place] [address], [phone], Provider Name:Eric reis, 08/30/2025 09:30:00 AM, [address] [place] [address], Suite [facility], [place], [place], [phone], Progress Notes * Alisia WINSTONDOB: 2 (63 yo F)Acc No.[id number]:09/29/2024 Patient:?Alisia WINSTON Provider:?Eric Sandoval MD :1960???Age:63 Y???Sex:Female D ate:09/29/2024 Address:[address] [place] [address] [id number] Subjective: * Chief Complaints: * ???pre-op Dr. Hardy 025 left cataract no lab or EKG needed * HPI: ???Symptom(s):? patient is a 63 yo female here for pre op visit for upcoming cataract surgery scheduled 10/20/[address] Hardy. * ROS:?General/Constitutional:?Denies?Chills.?Denies?Fatigue.?Denies?Fever.?Denies?Headache.?ENT:?Denies?Sore throat.?Respiratory:?Denies?Cough.?Denies?Shortness of breath at rest.?Denies?Shortness of breath with exertion.?Gastrointestinal:?Denies?Diarrhea.?Denies?Nausea.? * Medical History:? * Surgical History:? * Hospitalization/Major Diagno stic Procedure:? * Medications:?TakingAlbuterol Sulfate HFA 108 (90 Base) [...] gies Verified] Objective: * Vitals:?Ht: 64, Wt: 170, BMI [...] examination - Z01.818??? Plan: * Treatment: * Procedure Codes:? * * Sign off status: Completed true * Provider:?Eric Sandoval MD Date:?0 09/29/2024 Generated for Gagandeep dietrich/Yaakov/eTransmitting on:?11/04/2024 07:58 AM [...]
--- OUTSIDE RECORDS SUMMARY | 2024-11-04 07:58 | XMS_ITS | Patient Health Record ---
Author Organization [facility] Address [address] [place] [address] Care Team Providers Care Donor Recruitment Manager Name Role Phone Eric Sandoval MD Primary Care Provider William Diaz Unavailable [phone] BLANCA MANDUJANO Unavailable Unavailable Allergies No Known Allergies Reason For Referral No Information Medications Medication SIG (Take, Route, Frequency, Duration) Notes Start Date End Date Status Metoprolol Succinate ER 50 MG Oral for 90 Active Problems Problem Type SNOMED Code ICD Code Onset Dates Problem Status W/U Status Risk Notes Problem Colon cancer screening (749210832) Colon cancer screening (Z12.11) Active confirmed Problem Pre-procedure evaluation check (830063972) Encounter for other preprocedural examination (Z01.818) Active confirmed Problem Diverticular disease of colon (680065803) Diverticulosis of large intestine without perforation or abscess without bleeding (K57.30) Active confirmed Vital Signs Blood pressure diastolic 00 mm Hg 11/12/2023 Height 64 in 11/12/2023 Blood pressure systolic 00 mm Hg 11/12/2023 Weight 163 lbs 11/12/2023 BMI 27.98 kg/m2 11/12/2023 Encounters Encounter Location Date Provider Diagnosis [facility] Out[facility] [address] [place], [place] [phone] 02/21/2024 William Betancourt Colon cancer screeni ng Z12.11 ; Diverticulosis of large intestine without perforation or abscess without bleeding K57.30 and Other hemorrhoids K64.8 [facility] [address] [place] [address] 11/12/2023 William Betancourt Colon cancer screeni ng [...] Insured Coverage Start Date Coverage End Date [facility] [address] [place] [id number] HERIBERTO FOX Self - patient is the insured Medical (General) History Medical History History ICD Code Cardiac arrest while exercis ing in 2010-V. fib arrest-negative cardiac cath; diagnosed with ARVD arrhythmia. Sees Dr. Real Denies [place],DM,CVA,Lung disease,renal dise ase Kidney stones-Rx'd with ESWL Negative colonoscopy in 2011 Surgical History Surgery Date(Month/Year) Implanted defibrillator 2010 appendectomy 1976
== END ==
LOC: HO.CARD 07:54
PROVIDERS: PCP Internal Medicine; Visit Provider Internal Medicine Cardiovascular Disease
DX: I42.8 Other cardiomyopathies (principal)
CPT/HCPCS: 93306; Q9957

== ENCOUNTER → 2024-11-04 07:57 | Outpatient (BNV) | payer OTHER, SELFPAY | PROVIDERS: PCP Internal Medicine; Visit Provider Internal Medicine | DX: I42.8 Other cardiomyopathies (principal) | CPT/HCPCS: 93306 ==

== ENCOUNTER → 2024-11-16 13:12 | Outpatient (BNVA) | payer OTHER, SELFPAY | PROVIDERS: PCP Internal Medicine; Visit Provider Internal Medicine Cardiovascular Disease | DX: Z95.810 Presence of automatic (implantable) cardiac defibrillator (principal); I42.8 Other cardiomyopathies | CPT/HCPCS: 93005 ==

== ENCOUNTER 2024-11-16 13:21 | Outpatient (AMB) | payer OTHER, SELFPAY ==
--- NOTE | 2024-11-16 13:24 | A.OFFVIS_ITS ---
Vital Signs 11/16/24 13:25 Height 5 ft 3 in Weight 374 lb 12.573 oz BMI 66.4 BP 120/76 Blood Pressure Location Lt brachial Position Sitting Pulse 66 Intake Visit Reasons: 1 yrf/up-[place] [facility]-echo Intake Note: 1 year follow-up [facility] ekg and echo results feeling good Allergies No Known Allergies Allergy (Verified 07/16/24 01:30) Medication List - Last Reconciled 11/16/24 by Arnol Real MD albuterol sulfate 90 mcg/actuation 2 puffs inhalation Q4-6H PRN metoprolol succinate ER 50 mg PO BEDTIME HPI Comments Details: Alisia comes for follow-up. She has been doing very well. She had a recent pulse generator change due to end of battery. She is doing well. No symptoms of palpitation. No lightheadedness, syncope, ICD discharge. Recent echocardiogram showed mildly dilated right ventricle with low normal LV systolic function. She is taking metoprolol on a daily basis. She does exercise and walk on a regular basis without any exertional symptoms. [facility] Medical History Cardiac arrest Renal calculi ICD (implantable cardioverter-defibrillator) in place Arrhythmogenic right ventricular dysplasia Asthma Osteoporosis Surgical History H/O heart surgery H/O colonoscopy Hx of lithotripsy History of appendectomy Family History Father Diabetes HTN (hypertension) Social History Are you a primary healthcare marketer to a significant other at home: No Do you presently have visiting nurse or other home services: No Alcohol intake: current Alcohol intake frequency: holidays/special occasions only Comment: counts correct Patient Tobacco Use Status: Never used Tobacco Current occupational 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 Sexual orientation: Straight/Heterosexual Gender identity: Female Review of Systems Const Denies chills, Denies fatigue, Denies fever(s), Denies frequent falls, Denies weakness, Denies weight gain and Denies weight loss ENT Denies dizziness Card Denies chest pain, Denies leg edema, Denies lightheadedness, Denies palpitations, Denies dyspnea, Denies dyspnea on exertion, Denies orthopnea and Denies other (loss of consciousness) Resp Denies cough, Denies dyspnea and Denies dyspnea on exertion GI Denies hematochezia and Denies change in stool character Musc Denies abnormal gait, Denies muscle weakness, Denies numbness, Denies radiating pain into limb and Denies tingling Neuro Denies abnormal gait, Denies dizziness, Denies frequent falls, Denies numbness, Denies tingling and Denies weakness Endo Denies fatigue and Denies palpitations Physical Exam Vital Signs: Last Vital Signs Pulse 66 11/16/24 13:25 BP 120/76 11/16/24 13:25 BMI result Body Mass Index 66.4 Const General: cooperative, comfortable, no acute distress, alert, awake, Physically active and well groomed Nutritional Appearance: overweight Orientation/consciousness: patient oriented x3 Neck Neck: Yes trachea midline, Yes supple and Yes no JVD Resp Effort & Inspection: normal respiratory effort Auscultation: clear to auscultation bilaterally Cardio Jugular venous distension: no JVD Palpation: normal PMI Rate: regular rate Rhythm: regular rhythm Heart sounds: S1 normal heart sound present, S2 normal heart sound present, no click, no gallops, no murmurs and no rubs GI Auscultation: normal bowel sounds Skin General skin exam: no rashes or lesions noted Neuro General: patient oriented x3 and no focal motor deficits Extrem General: Yes no clubbing, cyanosis or edema Office Procedures Cardiac Device Check Cardiac Device Check Details: Single-chamber [employer] ICD in place. Programmed in VVI at 40 beats per minute. No significant arrhythmias detected. Ventricular sensing is excellent. Pacing and shock lead impedance is stable. Ventricular pacing thresholds adequate. Battery life is excellent at 15 years 15324-FT Cardiac Device Check, single lead implantable defibrillator Procedure code (CPT) selection complete EKG Details: EKG shows normal sinus rhythm with T-wave abnormality in the anterior precordial leads related to arrhythmogenic right ventricular dysplasia, unchanged from before 44241-[id number], Complete Assessment & Plan Assessment & Plan (1) ICD (implantable cardioverter-defibrillator) in place: Comment: 2010 Code(s): Z95.810 - Presence of automatic (implantable) cardiac defibrillator Category: Medical Plan: ICD in place for secondary prevention inpatient with history of sudden cardiac that with exercise related to ARVC. Patient has done well with ICD placement with no recurrent events. Continue monitor remotely every 3 months. ICD pulse generator was recently changed and battery life is excellent. (2) Arrhythmogenic right ventricular dysplasia: Comment: follows w/Dr. Real Code(s): I42.8 - Other cardiomyopathies Category: Medical Plan: ARVC in this middle-aged female with history of survived sudden cardiac that. Since then we have discussed at length about avoiding strenuous exercise which can promote further worsening of ARVC and RV dysfunction. Echocardiogram shows mild RV dilatation and systolic dysfunction overall without any symptoms. Will follow up in the clinic in 1 year's time with ICD check an EKG and in 2 years will perform an echocardiogram again. Advised to call me with any new symptoms. Coding Level of Care Code Est Pt Level 4 (93603) Complex EM visit Add On G2211 Diagnoses ICD (implantable cardioverter-defibrillator) in place Z95.810 Arrhythmogenic right ventricular dysplasia I42.8 CPT Codes Cardiac Device Check - Cardiac Device 4: 55871-FF Cardiac Device Check, single lead implantable defibrillator ([id number]) EKG - CPT: 09674-Xeqwxerqyyivtacky, Complete ([id number])
[2024-11-16 13:25] VITALS: BP 120/76; PULSE 66; BMI 66.4
== END 2024-11-16 14:10 | disposition home or self-care (01) ==
LOC: HO.HCS 13:21
PROVIDERS: PCP Internal Medicine; Visit Provider Internal Medicine Cardiovascular Disease
DX: I42.8 Other cardiomyopathies (principal); Z95.810 Presence of automatic (implantable) cardiac defibrillator
CPT/HCPCS: 93010; 93282; 99214; G2211

== ENCOUNTER 2024-12-22 12:56 | Outpatient (AMB) | payer OTHER, SELFPAY ==
--- OUTSIDE RECORDS SUMMARY | 2024-08-25 06:05 | XMS_ITS ---
Author Organization Eric Sandoval MD Address [address] [place] [phone] Care Team Providers Care Research Assistant Professor Name Role Phone Eric Sandoval Primary Care Provider [phone] REASON FOR VISIT Cardio in referral Encounters Encounter Location Date Provider Diagnosis Eric Sandoval MD [address] [place] [address] [place] [id number] 08/25/2024 Eric Sandoval Plan Of Treatment Next Appt Details Provider Name:Eric Monroy ier, 08/24/2025 07:30:00 AM, [address] [place] [address], [address], [phone], Provider Name:Eric reis, 08/30/2025 09:30:00 AM, [address] [place] [address], [address] [place], [phone], Progress Notes * Alisia WINSTONDOB: 2 (63 yo F)Acc No.[id number]:08/25/2024 Patient: Alisia MUNOZ :1960 A ge:63 Y S ex:Female Address:[address] [place] [id number] * true * Date: Generated for Narcisoi kaur/Yaakov/Juansmitting on: 0 12/22/2024 02:34 PM EDT
--- NOTE | 2024-12-22 12:57 | MHC.OFFVIS ---
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 She is doing well with project manager process development concerns. Currently sexually active. Admits to vaginal dryness, uses lubricant, not always helpful. Attempting to eat a healthy diet with calcium and vitamin D and stays active with exercise. Last pap smear; 2022, negative. Last mammogram; 2023. Colonoscopy is UTD. Denies any family history of breast, ovarian or colon cancer. 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 Asthma Osteoporosis Surgical History H/O heart surgery H/O colonoscopy Hx of lithotripsy History of appendectomy Family History Father Diabetes HTN (hypertension) Social History Are you a primary care support representative to a significant other at home: No Do you presently have visiting nurse or other home services: No Alcohol intake: current Alcohol intake frequency: holidays/special occasions only Comment: counts correct Patient Tobacco Use Status: Never used Tobacco Current occupational 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 Sexual orientation: Straight/Heterosexual Gender identity: Female Female Reproductive History Menstrual Total pregnancies: 3 Full term: 3 Number of Living Children: 3 Date of last pap smear: 12/14/22 (neg pap and hpv) Date of Mammogram: 05/06/24 (Birad 2) Review of Systems Const All systems reviewed & are unremarkable except as noted in HPI and below Reports as per HPI Eyes Reports no additional complaints ENT Reports no additional complaints Card Reports no additional complaints Resp Reports no additional complaints GI Reports as per HPI and Reports no additional complaints Reports as per HPI Musc Reports no additional complaints Skin/Breast Reports as per HPI Neuro Reports no additional complaints Psych Reports no additional complaints Endo Reports no additional complaints Víctor/Lymph Reports no additional complaints Aller/Immun Reports no additional complaints Physical Exam Vital Signs: Last Vital Signs BP 122/78 12/22/24 13:01 BMI result Body Mass Index 29.0 Const General: cooperative, healthy appearing, no acute distress, well developed and alert Orientation/consciousness: patient oriented x3 HEENT Head: Yes normal to inspection Eyes General: appearance normal, both eyes and all related structures Neck Neck: Yes normal visual inspection Thyroid: Thyroid normal Chest Chest palpation & inspection: normal inspection of the chest and other (no puckering, dimpling, peau de orange, retraction, discharge, masses) Breast/axilla inspection: normal inspection of the breasts Breast/axilla palpation: normal palpation of the breasts Resp Effort & Inspection: normal respiratory effort GI Inspection: Yes normal to inspection Palpation (GI): Soft to palpation Rectal Exam - Female: deferred General: Yes bladder normal to palpation External Female Exam: normal external appearance and normal appearance of the urethra Speculum Exam - Vagina: normal appearance of the vagina, normal palpation, normal vaginal discharge and vagina atrophic Speculum Exam - Cervix: normal appearance of the cervix and normal palpation Bimanual exam- vagina & uterus: normal bimanual exam, normal palpation, uterine size normal, bladder normal to palpation, normal palpation and non-tender Bimanual Exam- Adnexa, other: no masses Skin General skin exam: no rashes or lesions noted Rashes: no rashes Neuro General: patient oriented x3 Cognition (Neuro): normal cognition Extrem General: Yes normal to inspection Psych Attitude: cooperative Thought process: Normal thought process present Assessment & Plan Assessment & Plan (1) Encounter for annual routine gynecological examination: Code(s): Z01.419 - Encounter for gynecological examination (general) (routine) without abnormal findings Category: Medical Plan Discussed: Current recommendations for pap smears per ASCCP guidelines. Breast awareness, periodic self breast exams and yearly mammogram. Maintain a healthy lifestyle, well balanced diet including Calcium 1,200 mg and Vitamin D 600 IU daily, and routine exercise. Replens moisturizer use. Contact the office with any postmenopausal bleeding. Patient verbalizes understanding and agrees to the plan of care. She was given opportunity to ask questions and all questions were answered to the best of my ability. RTO in 1 year for annual project manager process development exam. This note is constructed using voice recognition software. While every effort has been made to ensure accuracy, emt basic errors may have been included. Coding Level of Care Code Est Pt Prev Care 40-64y(77608) Diagnoses Encounter for annual routine gynecological examination Z01.419
[2024-12-22 13:01] VITALS: BP 122/78; BMI 29.0
== END 2024-12-22 13:33 | disposition home or self-care (01) ==
LOC: HO.HWS 12:56
PROVIDERS: PCP Internal Medicine; Visit Provider Advanced Practice Midwife
DX: Z01.419 Encounter for gynecological examination (general) (routine) without abnormal findings (principal)
CPT/HCPCS: 99396; 99459

== ENCOUNTER → 2025-02-01 23:59 | Outpatient (BNV) | payer OTHER, SELFPAY ==
--- NOTE | 2025-02-09 09:26 | MHC.OFFVIS ---
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 Asthma Osteoporosis Surgical History H/O heart surgery H/O colonoscopy Hx of lithotripsy History of appendectomy Family History Father Diabetes HTN (hypertension) Social History Are you a primary physician primary care sports medicine to a significant other at home: No Do you presently have visiting nurse or other home services: No Alcohol intake: current Alcohol intake frequency: holidays/special occasions only Comment: counts correct Patient Tobacco Use Status: Never used Tobacco Current occupational 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 ICD function is adequate. [id number] Cardiac Interrogation, implant defibrillator w/interim Procedure code (CPT) selection complete Assessment & Plan Assessment & Plan (1) ICD (implantable cardioverter-defibrillator) in place: Comment: 2010 Code(s): Z95.810 - Presence of automatic (implantable) cardiac defibrillator Category: Medical Plan: See above Coding Level of Care Code Procedure Only Diagnoses ICD (implantable cardioverter-defibrillator) in place Z95.810 CPT Codes Cardiac Device Check - Cardiac Device 13: 73476-[id number] Cardiac Interrogation, implant defibrillator w/interim ([id number])
== END ==
PROVIDERS: PCP Internal Medicine; Visit Provider Internal Medicine Cardiovascular Disease
DX: Z45.02 Encounter for adjustment and management of automatic implantable cardiac defibrillator (principal)
CPT/HCPCS: 93295

== ENCOUNTER → 2025-05-03 23:59 | Outpatient (BNV) | payer OTHER, SELFPAY ==
--- NOTE | 2025-05-05 12:33 | A.OFFVIS_ITS ---
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 Asthma Osteoporosis Surgical History H/O heart surgery H/O colonoscopy Hx of lithotripsy History of appendectomy Family History Father Diabetes HTN (hypertension) Social History Are you a primary ostomy care nurse to a significant other at home: No Do you presently have visiting nurse or other home services: No Alcohol intake: current Alcohol intake frequency: holidays/special occasions only Comment: counts correct Patient Tobacco Use Status: Never used Tobacco Current occupational 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 ICD function is adequate [id number] Cardiac Interrogation, implant defibrillator w/interim Procedure code (CPT) selection complete Assessment & Plan Assessment & Plan (1) ICD (implantable cardioverter-defibrillator) in place: Comment: 2010 Code(s): Z95.810 - Presence of automatic (implantable) cardiac defibrillator Category: Medical Plan: See above Coding Level of Care Code Procedure Only Diagnoses ICD (implantable cardioverter-defibrillator) in place Z95.810 CPT Codes Cardiac Device Check - Cardiac Device 13: [id number] Cardiac Interrogation, implant defibrillator w/interim ([id number])
== END ==
PROVIDERS: Visit Provider Internal Medicine Cardiovascular Disease
DX: Z45.02 Encounter for adjustment and management of automatic implantable cardiac defibrillator (principal)
CPT/HCPCS: 93295

== ENCOUNTER 2025-05-17 07:59 | Outpatient (REF) | payer OTHER, SELFPAY ==
--- NOTE | ~2025-05-17 | MM_ITS ---
EXAMINATION: MM SCREENING DIGITAL BREAST TOMOSYNTHESIS, BILATERAL CLINICAL INFORMATION: Screening. Asymptomatic. COMPARISON: Comparison made to multiple prior, most recent May 06, 2024, and most remote September 10, 2019. TECHNIQUE: Digital breast tomosynthesis is performed in mediolateral oblique and craniocaudal views along with computer-aided detection (CAD). Synthesized 2D images are generated from the tomosynthesis. FINDINGS: BREAST COMPOSITION: The breasts are heterogeneously dense, which may obscure small masses. RIGHT BREAST: No significant masses, suspicious calcifications or other abnormalities are seen. LEFT BREAST: Defibrillator battery limits local evaluation. No significant masses, suspicious calcifications or other abnormalities are seen. MM/MM tomosynthesis screening BI IMPRESSION: BILATERAL BREASTS: Negative, no mammographic evidence of malignancy. Normal interval follow-up is recommended in 12 months. ASSESSMENT: BI-RADS: Category 1: Negative RECOMMENDATION: Routine annual mammography screening. FOLLOW-UP: 1 year F/U This examination should not preclude the clinical evaluation of a suspicious palpable abnormality. This patient's information was entered into a reminder system with a target due date for their next mammogram. Electronically signed by: Lorna Ozuna MD 05/17/2025 07:49 PM [facility]
== END 2025-05-17 08:00 | disposition home or self-care (01) ==
LOC: HO.MAMMO 07:59
PROVIDERS: PCP Internal Medicine; Visit Provider Internal Medicine
DX: Z12.31 Encounter for screening mammogram for malignant neoplasm of breast (principal)
CPT/HCPCS: 77063; 77067

== ENCOUNTER → 2025-05-17 08:09 | Outpatient (BNV) | payer OTHER, SELFPAY | PROVIDERS: PCP Internal Medicine; Visit Provider Radiology Body Imaging | DX: Z12.31 Encounter for screening mammogram for malignant neoplasm of breast (principal) | CPT/HCPCS: 77063; 77067 ==

== ENCOUNTER → 2025-05-18 12:23 | Outpatient (BNV) | payer OTHER, SELFPAY | PROVIDERS: PCP Internal Medicine | DX: Z45.02 Encounter for adjustment and management of automatic implantable cardiac defibrillator (principal) | CPT/HCPCS: 93295 ==

== ENCOUNTER → 2025-06-16 15:16 | Outpatient (BNV) | payer OTHER, SELFPAY | PROVIDERS: PCP Internal Medicine; Visit Provider Internal Medicine Cardiovascular Disease | DX: Z45.02 Encounter for adjustment and management of automatic implantable cardiac defibrillator (principal) | CPT/HCPCS: 93297 ==